=== PATIENT | female | born 1955 | race Caucasian/White ===

== ENCOUNTER 2017-12-05 15:47 | Emergency (ER) | payer OTHER ==
[~2017-12-05 15:47] MED LIST: ISOVUE-370 76%-LOCM 1 ML ONE
[2017-12-05] MEDS ORDERED: Ondansetron ODT 4 MG TAB ONE (16:51)
[2017-12-05] MEDS ORDERED: Morphine 4 MG/ML VIAL ONE (16:51)
[2017-12-05 17:49] LABS: #Eosinphils 0.1 thou/uL (0.0-0.7); #Lymphocytes 2.1 thou/uL (1.20-3.40); #Monocytes 0.6 thou/uL (0.11-0.59); #Neutrophils 7.2 thou/uL (1.40-6.50); %Basophils 0.3 % (0.0-1.0); %Eosinophils 0.9 % (0.0-10.0); %Lymphocytes 20.6 % (21.0-51.0); %Monocytes 5.7 % (0.0-10.0); %Neutrophils 72.4 % (42.0-75.0); Hemoglobin 15.2 g/dL (12.0-16.0); Mean Corpuscular HGB CONC 33.8 g/dL (32.0-36.0); Mean Corpuscular Hemoglobin 31.5 pg (27.0-31.0); Mean Platelet Volume 7.9 fL (7.4-10.4); Platelet Count 257 thou/uL (130-400); RBC Distribution Width 12.4 % (11.5-14.5); Red Blood Cell (RBC) Count 4.83 mill/uL (4.20-5.40)
[2017-12-05] MEDS ORDERED: diphenhydrAMINE 50 MG/ML VIAL ONE (18:03)
[2017-12-05 18:12] LABS: ALT (SGPT) 13 U/L (8-55); AST (SGOT) 17 U/L (5-34); Albumin 4.4 g/dL (3.4-4.8); Alkaline Phosphatase 100 U/L (40-150); Anion Gap 13 mmol/L (10-20); BUN (Urea Nitrogen) 20 mg/dL (9.8-20.1); Bilirubin, Total 0.5 mg/dL (0.2-1.2); CK (CPK) 78 U/L (29-168); Calc. Creatinine Clearance 0 mL/min (70-130); Calcium 10.5 mg/dL (7.8-10.44); Carbon Dioxide 26 mmol/L (23-31); Chloride 106 mmol/L (98-107); Estimated GFR-MDRD 57; Glucose 110 mg/dL (80-115); Lipase 38 U/L (8-78); Potassium 4.1 mmol/L (3.5-5.1); Protein, Total 7.4 g/dL (6.0-8.3); Sodium 141 mmol/L (136-145)
[2017-12-05 18:16] LABS: CKMB 2.6 ng/mL (0-6.6); Troponin I Less than 0.010 ng/mL (< 0.028)
[2017-12-05 18:17] LABS: Bilirubin Small (Negative); Blood, Urine Moderate (Negative); Clarity CLOUDY (Clear); Glucose, Urine (Dipstick) Negative (Negative); Leukocyte Small (Negative); Nitrite Negative (Negative); Protein, Urine (Dipstick) Negative (Neg-Trace); Specific Gravity, Urine 1.029 (1.002-1.036)
[2017-12-05 18:21] LABS: Bacteria/HPF Rare-Few HPF (None Seen); Hyaline Casts/LPF 4-6 HYALINE CAST LPF (0-3 Hyaline); Pathc Cast-AUWi Flag 1.01 (0-2.49); WBC/HPF 21-50 HPF (0-3)
--- NOTE | 2017-12-05 18:49 | RAD ---
PORTABLE CHEST ONE VIEW: Date: 12-05-17 Time: 4:51 p.m. History: Abdominal pain, cramping, epigastric pain, nausea. FINDINGS/IMPRESSION: The heart size is borderline. The lungs are expanded without focal areas of consolidation, pneumothor ax, alia pleural edema or pleural effusions. There are post op changes of right shoulder arthroplast y. POS: H
[2017-12-05] MEDS ORDERED: Ketorolac Tromethamine 30 MG/ML VIAL ONE (18:50)
--- NOTE | 2017-12-05 20:52 | CT ---
CT ABDOMEN AND PELVIS WITH CONTRAST: History: Abdominal pain, nausea, vomiting. FINDINGS: Comparison made with exam of 04-26-15. The patient is status post cholecystectomy. Prominent intra and extrahepatic biliary ducts are seen. The common bile duct at the distal aspect at the pancreatic head measuring about 9 mm. The liver, spl een, pancreas, adrenal glands and right kidney are normal. There is mild left hydroureteronephrosis d ue to a 3 mm calculus in the left ureter at L4 level. No free air, free fluid, or lymphadenopathy is seen. There are vascular calcifications without evidence of aneurysmal dilatation of the abdominal aorta. T here degenerative changes in the spine. There is colonic diverticulosis without evidence of diverticu litis. The patient is post hysterectomy. IMPRESSION: 1. 3 mm left ureteral calculus at the L4 level with mild hydroureteronephrosis. 2. Colonic diverticulosis. POS: MIKE
--- NOTE | 2018-01-03 14:43 | EKG ---
Test Reason : Blood Pressure : / mmHG Vent. Rate : 053 BPM Atrial Rate : 053 BPM P-R Int : 142 ms QRS Dur : 092 ms QT Int : 420 ms P-R-T Axes : -24 -11 033 degrees QTc Int : 394 ms Sinus bradycardia with sinus arrhythmia Otherwise normal ECG Reconfirmed by MEEK COLEMAN ([id number]), loan expeditor RASHEL DALTON ([id number]) on 01/03/2018 2:43:41 PM Referred By: Confirmed By:MEEK COLEMAN
== END 2017-12-05 19:25 | disposition home or self-care (01) ==
LOC: ERS 15:47
DX: N13.2 Hydronephrosis with renal and ureteral calculous obstruction (principal); I10 Essential (primary) hypertension; Z79.899 Other long term (current) drug therapy; Z79.82 Long term (current) use of aspirin
CPT/HCPCS: 36415; 71045; 74177; 80053; 81003; 81015; 82553; 83690; 83880; 84484; 85025; 87040; 87086; 93005; 94760; 96361; 96374; 96375; J0696; J1200; J1885; J2270; Q0162

== ENCOUNTER 2019-09-11 19:27 | Inpatient (IN) | payer OTHER ==
[2019-09-11 21:26] LABS: #Eosinphils 0.2 thou/uL (0.0-0.7); #Lymphocytes 2.4 thou/uL (1.20-3.40); #Monocytes 0.5 thou/uL (0.11-0.59); %Basophils 0.6 % (0.0-1.0); %Eosinophils 2.8 % (0.0-10.0); %Lymphocytes 29.5 % (21.0-51.0); %Monocytes 6.5 % (0.0-10.0); %Neutrophils 60.6 % (42.0-75.0); Mean Corpuscular HGB CONC 34.4 g/dL (32.0-36.0); Mean Corpuscular Hemoglobin 31.6 pg (27.0-31.0); Mean Platelet Volume 8.6 fL (7.4-10.4); Platelet Count 260 thou/uL (130-400); RBC Distribution Width 13.3 % (11.5-14.5); Red Blood Cell (RBC) Count 4.43 mill/uL (4.20-5.40); White Blood Cell (WBC) Count 8.2 thou/uL (4.8-10.8)
[2019-09-11 21:47] LABS: ALT (SGPT) 72 U/L (8-55); AST (SGOT) 61 U/L (5-34); Albumin 3.8 g/dL (3.4-4.8); Alkaline Phosphatase 66 U/L (40-110); Anion Gap 11 mmol/L (10-20); BUN (Urea Nitrogen) 17 mg/dL (9.8-20.1); Bilirubin, Total 0.4 mg/dL (0.2-1.2); Calc. Creatinine Clearance 0 mL/min (70-130); Calcium 9.7 mg/dL (7.8-10.44); Carbon Dioxide 35 mmol/L (23-31); Chloride 99 mmol/L (98-107); Estimated GFR-MDRD 58; Globulin 2.8 g/dL (2.4-3.5); Glucose 149 mg/dL (80-115); Protein, Total 6.6 g/dL (6.0-8.3); Sodium 143 mmol/L (136-145)
[2019-09-11 21:51] LABS: Potassium 1.9 mmol/L (3.5-5.1)
[2019-09-11] MEDS ORDERED: Potassium Chloride 20 MEQ TAB ONE (22:47)
[2019-09-11] MEDS ORDERED: Ondansetron PF 4 MG/2 ML Vial ONE (22:49)
[2019-09-11] MEDS ORDERED: Morphine 4 MG/ML VIAL ONE (22:49)
[2019-09-11] MEDS ORDERED: Ondansetron ODT 4 MG TAB ONE (22:58)
[2019-09-11] MEDS ORDERED: Potassium Chloride 20 MEQ in Premix Bag 1 BAG IVPB SCH (23:15)
[2019-09-11] MEDS ORDERED: Enoxaparin Sodium 30 MG/0.3 ML SYRINGE ONE (23:40)
[2019-09-11] MEDS ORDERED: Enoxaparin Sodium 80 MG/0.8 ML SYRINGE ONE (23:40)
[2019-09-11] MEDS ORDERED: Aspirin Chewable 81 MG TAB ONE (23:55)
--- NOTE | 2019-09-12 01:15 | PDOC.FPRHP ---
- History of Present Illness Chief Complaint: left upper leg pain History of Present Illness: Patient is a 63F with PMHx of HTN and resting tremor that presents with L upper leg pain. Patient reports that the pain began last wednesday but has been getting worse. She states that it is the most painful when she is walking and it helps if she rests. She states that the pain is in her medial thigh and feels like "a pulled muscle x 100." This has never happened to her before. She denies any trauma to the leg. Patient reports of chronic diarrhea x5 weeks that her and her daughter both have. She states that they have been prescribed cipro and flagyl for the diarrhea by their PCP and symptoms have seemed to improved somewhat. Patient denies any chest pain, sob, n/v. PCP: [facility] ED Course: 1mg/kg lovenox, 324mg asa, 20meq KCL IV, 40meq KCL PO, 8mg morphine, 1L NS, 4mg zofran - Allergies/Adverse Reactions Allergies Allergy/AdvReac Type Severity Reaction Status Date / Time codeine Allergy Unverified 09/11/19 22:59 Sulfa (Sulfonamide Allergy Unverified 09/11/19 22:59 Antibiotics) - Home Medications Medication Instructions Recorded Confirmed Type Acetaminophen [Tylenol] 1,000 mg PO Q6HR PRN 09/12/19 09/12/19 History Amlodipine [Norvasc] 5 mg PO DAILY 09/12/19 09/12/19 History Aspirin [Ecotrin] 81 mg PO DAILY 09/12/19 09/12/19 History Cyanocobalamin (Vitamin B-12) 1,000 mcg PO DAILY 09/12/19 09/12/19 History [Vitamin B12] Hydrochlorothiazide 12.5 mg PO DAILY 09/12/19 09/12/19 History Lactobacillus Rhamnosus GG 1 cap PO BID 09/12/19 09/12/19 History [Culturelle] Lisinopril [Zestril] 40 mg PO DAILY 09/12/19 09/12/19 History Metoprolol Tartrate [Lopressor] 100 mg PO BID 09/12/19 09/12/19 History Multivit, Therapeutic [Theragran] 1 tab PO DAILY 09/12/19 09/12/19 History - History PMHx: HTN, resting tremor; had breast cancer in 2004 PSHx: gastric bypass, cholecystectomy, R shoulder surgery, hysterectomy, L knee surgery FHx: DM and HTN Social: previous smoker, rarely drinks ETOH, no drug use - Review of Systems General: denies: fever/chills, weight/appetite/sleep changes Eyes: denies: eye pain, vision changes ENT: denies: nasal congestion, rhinorrhea Respiratory: denies: cough, shortness of breath Cardiovascular: denies: chest pain, edema Gastrointestinal: reports: diarrhea (chronic). denies: nausea, vomiting - Vital signs BP: [172/75] HR: [68] RR: [17] Tmax: [98.2F] Pox: [96]% on [RA] Wt: [113.88kg ] - Physical Exam Constitutional: awake, alert and oriented, well developed HEENT: EOMI, MMM Neck: supple, FROM Chest: no-tender to palpation, no lesions Heart: RRR, normal S1/S2, pulses present Lungs: CTAB, no respiratory distress Abdomen: soft, non-tender Musculoskeletal: ROM grossly normal, other (pain of L upper leg with flexion) Neurological: normal sensation, other (resting tremor) Skin: no rash/lesions, good turgor Heme/Lymphatic: no unusual bruising or bleeding, no purpura Psychiatric: normal mood and affect, good judgment and insight FMR H&P: Results - Labs Result Diagrams: 09/11/19 21:18 09/12/19 00:58 Lab results: WBC 8.2 thou/uL (4.8-10.8) 09/11/19 21:18 Hgb 14.0 g/dL (12.0-16.0) 09/11/19 21:18 Hct 40.8 % (36.0-47.0) 09/11/19 21:18 MCV 92.0 fL (78.0-98.0) 09/11/19 21:18 Plt Count 260 thou/uL (130-400) 09/11/19 21:18 Neutrophils % 60.6 % (42.0-75.0) 09/11/19 21:18 Sodium 143 mmol/L (136-145) 09/11/19 21:18 Potassium 1.9 mmol/L (3.5-5.1) L* 09/11/19 21:18 Chloride 99 mmol/L (98-107) 09/11/19 21:18 Carbon Dioxide 35 mmol/L (23-31) H 09/11/19 21:18 BUN 17 mg/dL (9.8-20.1) 09/11/19 21:18 Creatinine 0.97 mg/dL (0.6-1.1) 09/11/19 21:18 Glucose 149 mg/dL (80-115) H 09/11/19 21:18 Calcium 9.7 mg/dL (7.8-10.44) 09/11/19 21:18 Total Bilirubin 0.4 mg/dL (0.2-1.2) 09/11/19 21:18 AST 61 U/L (5-34) H 09/11/19 21:18 ALT 72 U/L (8-55) H 09/11/19 21:18 Alkaline Phosphatase 66 U/L (40-110) 09/11/19 21:18 Serum Total Protein 6.6 g/dL (6.0-8.3) 09/11/19 21:18 Albumin 3.8 g/dL (3.4-4.8) 09/11/19 21:18 FMR H&P: A/P - Problem List (1) Hypokalemia Current Visit: Yes Status: Acute Code(s): E87.6 - HYPOKALEMIA (2) Atrial flutter Current Visit: Yes Status: Acute Code(s): I48.92 - UNSPECIFIED ATRIAL FLUTTER (3) HTN (hypertension) Current Visit: Yes Status: Chronic Code(s): I10 - ESSENTIAL (PRIMARY) HYPERTENSION (4) Diarrhea Current Visit: Yes Status: Chronic Code(s): R19.7 - DIARRHEA, UNSPECIFIED - Plan Patient is a 63F with PMHx of HTN and resting tremor that is being admitted for severe hypokalemia and atrial flutter #Severe Hypokalemia -potassium 1.9 on presentation -likely the cause of her left leg muscle pain -likely caused by her chronic diarrhea that she has had for the last 5 weeks -given 40meq PO and 20meq IV of KCl in ED -will continue to monitor frequently with Q3BMP and replete as necessary -will check mag and phos and replace as needed -monitor on telemetry overnight -hold home HCTZ #Atrial flutter -EKG in ED demonstrated atrial flutter, rate controlled -Likely related to low potassium -Will monitor on telemetry overnight -started on therapeutic lovenox in ED, will continue -Consider cards consult in am if this persists #Diarrhea -has been ongoing for last 5 weeks -likely the cause of her low potassium -has been treated outpatient with cipro and flagyl per patient -patient reports her symptoms have improved, though she continues to have some bouts of diarrhea she treats with imodium -stool studies pending #HTN -Continue home meds -Hold home HCTZ Diet: HH DVT PPx: Lovenox Dispo: inpatient for monitoring and repletion of potassium and other electrolytes as needed; monitoring on telemetry for atrial flutter Code: Full PCP: Loren FMR H&P: Upper Level - Pertinent history 63 yo F with recent hx of diarrhea for the past 3 weeks being treated by her PCP with Cipro and flagyl here with complaint of muscle pain and weakness. She states that pain feels like a severe cramp and is worst in her L leg. In the ED she had a potassium of 1.9. Her EKG appeared to be rate controlled atrial flutter. PMHx HTN Breast Ca Surgical Hx Gastric bypass Cholecystectomy Hysterectomy R shoulder replacement Social Hx Remote tobacco use Occasional etoh Denies drugs - Pertinent findings See product managent intern note for full ROS, PE, vitals, and labs ROS General Denies chills and fever HEENT denies sore throat or ear pain CV Denies CP, diaphoresis or palpitations Resp Denies SOB or cough GI Denies n/v or abdominal pain denies dysuria and frequency Neuro denies weakness or numbness. MSK complains of leg pain PE General A&O x4 HEENT NCAT CV RRR, no murmur Resp CTA Abd soft, no distension Neuro resting tremor MSK no tenderness, normal strength. Pain with leg flexion - Plan Date/Time: 09/12/19 0115 Abhilash Ramirez DO, have evaluated this patient and agree with findings/plan as outlined by product managent intern resident. Pertinent changes/additions are listed here. 1.Severe Hypokalemia - Admit to tele -Replaced IV and PO -Check Mg and phos and replace if indicated -Q3 BMP until K improves. -This is most likely related to diarrhea, which has since resolved. - hold home HCTZ 2.HTN -Home meds, other than HCTZ 3.Atrial flutter -Likely related to potassium -Monitor on tele. -Continue lovenox -Consider cards consult if this persists Diet HH Code Full PPx Lovenox Dispo: pt is in fair condition. Would expect 2-3 day hospitalization
[2019-09-12] MEDS ORDERED: Potassium Chloride 20 MEQ TAB ONE (01:24)
[2019-09-12] MEDS ORDERED: Calcium Carbonate 500 MG ChewTAB PO PRN (01:58)
[2019-09-12 03:03] LABS: Chloride 100 mmol/L (98-107); Sodium 143 mmol/L (136-145)
[2019-09-12 03:04] LABS: BUN (Urea Nitrogen) 16 mg/dL (9.8-20.1); Calc. Creatinine Clearance 0 mL/min (70-130); Carbon Dioxide 32 mmol/L (23-31); Estimated GFR-MDRD 68
[2019-09-12 03:06] LABS: Calcium 9.1 mg/dL (7.8-10.44); Glucose 125 mg/dL (80-115); Phosphorus 2.5 mg/dL (2.3-4.7)
[2019-09-12 03:07] LABS: Anion Gap 13 mmol/L (10-20); Potassium 1.9 mmol/L (3.5-5.1)
[2019-09-12] MEDS ORDERED: Potassium Chloride 20 MEQ in Premix Bag 1 BAG IVPB SCH ×2 (03:30→12:00)
[2019-09-12] MEDS ORDERED: Acetaminophen 325 MG TAB PO PRN (03:42)
[2019-09-12] MEDS ORDERED: Ondansetron ODT 4 MG TAB SL PRN (03:42)
[2019-09-12] MEDS ORDERED: Ondansetron PF 4 MG/2 ML Vial IVP PRN (03:42)
[2019-09-12] MEDS ORDERED: HYDROcodone/Acetaminophen 5/325 mg Tablet PO PRN ×2 (03:42)
[2019-09-12] MEDS: NS 0.9% w/ 20 MEQ KCL 1,000 ML IV SCH ×2 (04:05→13:06)
[2019-09-12 06:18] LABS: Anion Gap 12 mmol/L (10-20); BUN (Urea Nitrogen) 14 mg/dL (9.8-20.1); Calc. Creatinine Clearance 126 mL/min (70-130); Calcium 8.3 mg/dL (7.8-10.44); Carbon Dioxide 30 mmol/L (23-31); Chloride 102 mmol/L (98-107); Estimated GFR-MDRD 70; Glucose 141 mg/dL (80-115); Sodium 141 mmol/L (136-145)
[2019-09-12 06:24] LABS: Potassium 2.5 mmol/L (3.5-5.1)
[2019-09-12] MEDS: Aspirin 81 mg Enteric Coated Tablet PO SCH (08:56)
[2019-09-12] MEDS: Lisinopril 20 MG TAB PO SCH (08:56)
[2019-09-12] MEDS: Potassium Chloride 20 MEQ TAB PO SCH ×2 (08:56→17:44)
[2019-09-12] MEDS: Cyanocobalamin (Vitamin B-12) 1,000 MCG TAB PO SCH (08:57)
[2019-09-12] MEDS: Metoprolol Tartrate 100 MG TAB PO SCH ×2 (08:57→20:16)
[2019-09-12] MEDS: Multivit, Therapeutic 1 TAB PO SCH (08:57)
[2019-09-12] MEDS: Enoxaparin Sodium 120 MG/0.8 ML SYRINGE SC SCH ×2 (08:57→20:17)
[2019-09-12] MEDS: Amlodipine 5 MG TAB PO SCH (08:57)
[2019-09-12] MEDS ORDERED: Enoxaparin Sodium 100 MG/ML SYRINGE SC SCH (09:00)
[2019-09-12 09:46] LABS: Anion Gap 10 mmol/L (10-20); BUN (Urea Nitrogen) 13 mg/dL (9.8-20.1); Calc. Creatinine Clearance 118 mL/min (70-130); Calcium 8.3 mg/dL (7.8-10.44); Carbon Dioxide 31 mmol/L (23-31); Chloride 102 mmol/L (98-107); Estimated GFR-MDRD 64; Glucose 170 mg/dL (80-115); Sodium 141 mmol/L (136-145)
[2019-09-12 09:50] LABS: Potassium 2.3 mmol/L (3.5-5.1)
[2019-09-12] MEDS: Acetaminophen 325 MG TAB PO PRN (10:16)
--- NOTE | 2019-09-12 10:41 | ULT ---
EXAM: Left lower extremity venous Doppler US HISTORY: left lower extremity edema and pain FINDINGS: Grayscale, color-flow, Doppler evaluation, spectral analysis of the left lower extremity venous struc tures is performed with 2-D imaging. The left common femoral, superficial femoral, popliteal, posterior tibial, proximal greater saphenous and profunda femoral veins are imaged. There is normal luminal compressibility, flow, and augmentation the visualized deep venous structures of the left lower extremity. IMPRESSION: No evidence of a deep vein thrombosis in the left lower extremity.
--- NOTE | 2019-09-12 10:53 | HP ---
HISTORY OF PRESENT ILLNESS: I have examined the patient and discussed the case with Dr. Emi Rodriguez. I agree with her assessment and plan. Briefly, Ms. Ziegler is a pleasant 63-year-old lady who began having diarrhea several weeks ago. She states she has had chronic diarrhea for at least the last 5 weeks. She developed some muscle pain, came to our ER, where she was found to have a potassium of 1.9. She has been admitted for replacement of her serum potassium as well as working up her diarrhea. PHYSICAL EXAMINATION: GENERAL: She is awake, alert, pleasant, in no distress. VITAL SIGNS: Her blood pressure is 170/70, heart rate is 68 and regular, respirations are 17, she is afebrile, and her room air pulse ox is 96%. EAR, NOSE, AND THROAT: Mucous membranes slightly dry, but becoming more moist than explained on admission. NECK: Supple. CARDIAC: Heart rhythm is regular. S4 gallop. There are no murmur or rubs noted. LUNGS: Clear without rales or wheezes. ABDOMEN: Nontender without guarding, rebound, or rigidity. NEUROLOGIC: She has a tremor of her right arm, otherwise no focal deficits. The tremor is a chronic resting tremor. LABORATORY DATA: CBC; white count 8200, hemoglobin 14, hematocrit 40.8 with an MCV of 92. Chemistries on her admission, her potassium was 1.9, it is currently 2.3; sodium 141; chloride 102; bicarb 31; BUN 13; creatinine 0.89; and glucose is 170. Her TSH is 2.45. ASSESSMENT: Profound hypokalemia. PLAN: We will continue to replenish this intravenously and p.o. We have some stool studies pending for her diarrhea. Other problems include the following. She also has atrial flutter with a controlled ventricular response. This may be certainly exacerbated by her low potassium. She is also having some muscle pain in her left medial thigh and we will obtain a Doppler study to make sure she does not have a DVT here. Job ID: [id number]
[2019-09-12 13:29] LABS: Anion Gap 10 mmol/L (10-20); BUN (Urea Nitrogen) 13 mg/dL (9.8-20.1); Calc. Creatinine Clearance 121 mL/min (70-130); Calcium 8.5 mg/dL (7.8-10.44); Carbon Dioxide 32 mmol/L (23-31); Chloride 103 mmol/L (98-107); Estimated GFR-MDRD 66; Glucose 168 mg/dL (80-115); Sodium 142 mmol/L (136-145)
[2019-09-12 13:31] LABS: Potassium 2.9 mmol/L (3.5-5.1)
--- NOTE | 2019-09-12 17:19 | CON ---
DATE OF CONSULTATION: 09/12/2019 REASON FOR CONSULTATION: Atrial fibrillation and atrial flutter in the setting of hypokalemia. HISTORY OF PRESENT ILLNESS: Ms. Ziegler is a 63-year-old woman, who has been having prolonged episodes of diarrhea for about 3 weeks. She also complained of left upper leg pain. The patient had diarrhea for several weeks, some of the notes say anywhere between 3 to 5 weeks. She will be given Cipro and Flagyl. While she was admitted here as noted that she has had episodes of atrial fibrillation and atrial flutter as will be outlined below. The patient has no previous history of chest pain or pressure. The patient does snore and she wakes up tired. PAST MEDICAL HISTORY: Negative for any cardiac operations or procedures. SOCIAL HISTORY: No alcohol or tobacco abuse. REVIEW OF SYSTEMS: CONSTITUTIONAL: No significant weight gain or loss. VISION: No changes. HEARING: No changes. PULMONARY: No cough or wheezing. GASTROINTESTINAL: No nausea, vomiting, or diarrhea. SKIN: No rashes. NEUROLOGIC: No unilateral weakness or numbness. PSYCHIATRIC: No unusual depression or anxiety. PHYSICAL EXAMINATION: GENERAL: This is a 5 feet 4 inches tall, 251 pounds patient, and BMI is 43.1. Blood pressure 120/58 and pulse is 52 and regular. HEENT: Eyes, sclerae nonicteric. Mouth, mucous membranes moist. NECK: Supple. No lymphadenopathy. LUNGS: Clear. CARDIAC: Normal S1. Normal S2. I do not hear murmur, rub, or gallop. ABDOMEN: Soft and nontender. EXTREMITIES: Warm and dry. No clubbing or cyanosis. There is no edema. PERTINENT LABORATORY DATA: Her potassium was 1.9 initially, it is now up to 2.9. Echocardiogram is normal with an ejection fraction 55% to 60%. No significant valvular heart disease. EKGs looked like atrial flutter, atypical. Some of the EKGs look like atrial fibrillation. Some sinus bradycardia. She did have some bradycardia in the 40s, one episode of very severe tachycardia, rate of 180s, it is probably either atrial fibrillation or atrial flutter with a very rapid rate, it is ST depression associated with that severe tachycardia that occurred at 9 a.m. this morning. ASSESSMENT: 1. Diarrhea. 2. Severe hypokalemia secondary to diarrhea. 3. Atrial fibrillation and atrial flutter some with a very rapid rate, some bradycardic. PLAN: 1. Continue to replete potassium. 2. At some point, we will need electrophysiologic consultation for possible ablation. I think some of this severe tachycardia may be flutter. Job ID: [id number]
[2019-09-12 20:50] LABS: Anion Gap 9 mmol/L (10-20); BUN (Urea Nitrogen) 14 mg/dL (9.8-20.1); Calc. Creatinine Clearance 126 mL/min (70-130); Carbon Dioxide 32 mmol/L (23-31); Chloride 106 mmol/L (98-107); Estimated GFR-MDRD 70; Glucose 152 mg/dL (80-115); Sodium 144 mmol/L (136-145)
[2019-09-12 20:53] LABS: Potassium 2.6 mmol/L (3.5-5.1)
[2019-09-12] MEDS ORDERED: Potassium Chloride 20 MEQ TAB PO SCH ×2 (21:00→23:00)
--- NOTE | 2019-09-13 06:24 | PDOC.FM ---
- Subjective Subjective: 5 episodes of diarrhea overnight. Denies fever, chills, palpitations. Currently in NSR. - Objective MAR Reviewed: Yes Vital Signs & Weight: Vital Signs (12 hours) Temp Pulse Resp BP Pulse Ox 09/13/19 03:45 98.4 F 63 18 130/63 96 09/12/19 20:00 97.8 F 64 18 116/55 L 97 Weight Admit Weight 113.88 kg Weight 113.88 kg I&O: 09/11/19 09/12/19 09/13/19 06:59 06:59 06:59 Intake Total 847 Output Total 401 Balance 446 Result Diagrams: 09/11/19 21:18 09/13/19 06:48 Phys Exam - Physical Examination Constitutional: NAD HEENT: moist MMs Neck: supple Respiratory: no wheezing, clear to auscultation bilateral Cardiovascular: RRR, no significant murmur In and out of Aflutter, currently NSR Gastrointestinal: soft, non-tender Musculoskeletal: no edema Neurological: moves all 4 limbs Psychiatric: normal affect, A&O x 3 Skin: normal turgor Dx/Plan - Plan Plan: 63F with PMHx of HTN and resting tremor that is being admitted for severe hypokalemia and atrial flutter Severe Hypokalemia likely 2/2 chronic diarrhea - Initial K: 1.9 - Continue IV and PO replacement - Mg nml - Holding home HCTZ Atrial flutter 2/2 hypokalemia, In and out of Aflutter - EKG: atrial flutter, rate controlled - Continue therapeutic lovenox - Cards consulted Medial Thigh Pain - Likely caused by hypokalemia - LE US neg for DVT Diarrhea - Has been treated outpatient with cipro and flagyl per patient - Started after eating deer meat, mult other family members with similar symptoms that resolved with exception of her daughter - Stool studies neg thus far, several still pending - Ordered Celiac panel, giardia, ESR & CRP. Consider GI consult if workup results neg. HTN - Continue home meds - Hold home HCTZ Hx of Gastric Sleeve Suspected JOY - Has not had sleep study yet DVT PPx: Ther Lovenox Code Status: Full PCP: Loren Addendum - Attending - Attending Attestation Date/Time: 09/13/19 1053 I personally evaluated the patient and discussed the management with Dr. Baker I agree with the History, Examination, Assessment and Plan documented above with any addition or exceptions noted below. potassium is improving. Will continue replacement. Awaiting final stool studies before starting antidiarrheal medications. If negative will consider GI consultation. EP believes a-flutter was due to tremor on tele lead. will f/u with additional cardiology recommendations.
[2019-09-13 07:20] LABS: Anion Gap 8 mmol/L (10-20); BUN (Urea Nitrogen) 13 mg/dL (9.8-20.1); Calc. Creatinine Clearance 136 mL/min (70-130); Calcium 8.5 mg/dL (7.8-10.44); Carbon Dioxide 32 mmol/L (23-31); Chloride 108 mmol/L (98-107); Estimated GFR-MDRD 76; Glucose 128 mg/dL (80-115); Magnesium 2.1 mg/dL (1.6-2.6); Sodium 145 mmol/L (136-145)
[2019-09-13 07:29] LABS: Potassium 2.9 mmol/L (3.5-5.1)
[2019-09-13] MEDS: Aspirin 81 mg Enteric Coated Tablet PO SCH (08:30)
[2019-09-13] MEDS: Amlodipine 5 MG TAB PO SCH (08:30)
[2019-09-13] MEDS: Potassium Chloride 20 MEQ TAB PO SCH (08:30)
[2019-09-13] MEDS: Multivit, Therapeutic 1 TAB PO SCH (08:30)
[2019-09-13] MEDS: Lisinopril 20 MG TAB PO SCH (08:30)
[2019-09-13] MEDS: Cyanocobalamin (Vitamin B-12) 1,000 MCG TAB PO SCH (08:30)
[2019-09-13] MEDS: Enoxaparin Sodium 120 MG/0.8 ML SYRINGE SC SCH (08:31)
[2019-09-13] MEDS: Metoprolol Tartrate 100 MG TAB PO SCH ×2 (08:32→20:27)
[2019-09-13] MEDS ORDERED: Potassium Chloride 40 MEQ in Sodium Chloride 0.9% 250 ML 250 ML IVPB SCH ×2 (09:30→12:00)
--- NOTE | 2019-09-13 12:46 | CON ---
DATE OF CONSULTATION: 09/13/2019 HISTORY OF PRESENT ILLNESS: I am seeing Ms. Ziegler at our [facility] Telemetry Floor as an electrophysiology consult regarding her abnormal EKG and arrhythmias. Her problems are; 1. Episodic palpitations. a. Telemetry strips reveal two atrial tachycardia episodes that is about 15 seconds with rates up to 180 beats per minute in the setting of hypokalemia. b. Also baseline artifact is seen due to upper extremity tremor throughout the recordings, but no true atrial flutter is noted. 2. Preserved LVEF by 2D echo on 09/12/2019 at 55% to 60%. No significant valvular heart disease. 3. Diarrhea related hypokalemia on this admission. 4. Elevated BMI. ALLERGIES: CODEINE AND SULFA. MEDICATIONS: At home included; 1. Culturelle. 2. Tylenol. 3. Multivitamin. 4. Aspirin. 5. Metoprolol tartrate. 6. Amlodipine. 7. Lisinopril. 8. Hydrochlorothiazide. 9. Cyanocobalamin. SUBJECTIVE: Ms. Ziegler was admitted with unrelenting diarrhea for last 5 weeks. She was noted to be markedly hypokalemic, but also she had some complaints of palpitations prior to the day of coming in, which has subsided by the time of admission. She had no symptomatic recurrence at this time, but telemetry strips revealed abnormal recordings, hence I was consulted for further arrhythmia management. At this point, she is doing fair. She is complaining of left lower leg discomfort, which seems to be improving. She is receiving potassium replacement, still suboptimal levels are seen. Her diarrhea is somewhat improving, but not resolved completely yet. She has no stroke-like symptoms, no neurological deficits. No fever, chills, or cough. REVIEW OF SYSTEMS: Rest of 12-point system otherwise unremarkable. OBJECTIVE DATA: VITAL SIGNS: Blood pressure 131/74, heart rate 59, respirations 20, temperature 98.5 degrees Fahrenheit, currently. GENERAL: Reveals an alert and oriented, obese woman, in no apparent distress. NECK: Supple. Jugular veins not distended. CHEST: Coarse without crackles. HEART: Sounds are regular to rate and rhythm. No murmur or gallop. ABDOMEN: Benign. Bowel sounds positive. EXTREMITIES: Lower extremities without edema, clubbing, or cyanosis. Pulses are adequate. NEUROLOGIC: The patient is nonfocal, but upper extremity tremor is seen, which though she can suppress intentionally only. SOCIAL HISTORY: She denies smoking, EtOH, or drug abuse. FAMILY HISTORY: Not contributory. DATABASE: The EKG is reviewed. Initial EKGs reveal sinus rhythm with occasional PACs with heavy baseline artifact on September 11. Subsequent EKGs are similar, intermittent PACs. Telemetry strips also reveal sinus rhythm with baseline artifact coming and going throughout the recordings. One episode of rapid tachycardia is seen with heart rates up to 180 beats per minute narrow complex, appears to be atrial tachycardia run, at the time when the patient was being changed, quickly resolving. LABORATORY DATA: White blood cell count is 8.2, hemoglobin 14, platelet count is 260. Sodium 145, potassium currently 2.9, BUN is 13, creatinine 0.77, magnesium is 2.1. ASSESSMENT AND PLAN: Ms. Ziegler is a very pleasant 63-year-old woman, who has no prior cardiac history, and has normal LVEF on echocardiogram this admit, who presented with persisting diarrhea and marked hypokalemia. She also has episodic symptoms of palpitations, like prior to admission and during her monitoring, we noticed a short, maybe 15 seconds worth of rapid atrial tachycardia, could be resolving spontaneously, this was at the time when the patient was changed, atrial tachycardia versus sinus tachycardia is differential diagnosis. Confusingly, the picture has dense baseline artifact, likely related to the right extremity tremor, which seems to be present all the time. The patient can suppress it intentionally, but otherwise it is constant. Hence, the constant artifact masquerading as atrial flutter, but true sinus rhythm is seen in the lead III throughout. At this point, the short atrial tachycardia likely warrants no new therapy. This could be provoked by her marked hypokalemia, which likely will be corrected by the end of the hospitalization. On the other hand, if continued palpitations recur , she may benefit from further monitoring and intensifying her antiarrhythmic regimen. At this point, I will continue with the current beta-miriam dose. Should she has frequent true atrial tachycardia episodes, antiarrhythmic agents or ablation in a potential option, have to see her back in the office if felt necessary. Thank you again for allowing me to participate in the care of this patient. Job ID: [id number] [facility]
[2019-09-13 13:33] LABS: Anion Gap 9 mmol/L (10-20); BUN (Urea Nitrogen) 14 mg/dL (9.8-20.1); Calc. Creatinine Clearance 125 mL/min (70-130); Calcium 8.6 mg/dL (7.8-10.44); Carbon Dioxide 31 mmol/L (23-31); Chloride 108 mmol/L (98-107); Estimated GFR-MDRD 69; Glucose 134 mg/dL (80-115); Potassium 3.5 mmol/L (3.5-5.1); Sodium 144 mmol/L (136-145)
[2019-09-13] MEDS ORDERED: Potassium Chloride 20 MEQ TAB PO SCH ×2 (14:00→18:00)
[2019-09-13 16:28] LABS: EliA Celiac New Method **** NEW METHOD ****; Gliadin IgA Ab, Deamidated 4.2 EliAU/mL (<7 Negative); Gliadin IgG Ab, Deamidated Less than 0.4 EliAU/mL (<7 Negative); t-Transglutaminase (tTG) IgA 1.2 EliAU/mL (<7 Negative); t-Transglutaminase (tTG) IgG Less than 0.6 EliAU/mL (<7 Negative)
[2019-09-13] MEDS: Enoxaparin Sodium 40 MG/0.4 ML SYRINGE SC SCH (20:28)
[2019-09-14 05:06] LABS: Anion Gap 9 mmol/L (10-20); BUN (Urea Nitrogen) 16 mg/dL (9.8-20.1); Calc. Creatinine Clearance 134 mL/min (70-130); Calcium 8.4 mg/dL (7.8-10.44); Carbon Dioxide 28 mmol/L (23-31); Chloride 110 mmol/L (98-107); Estimated GFR-MDRD 75; Glucose 114 mg/dL (80-115); Sodium 144 mmol/L (136-145)
[2019-09-14 05:11] LABS: Potassium 2.8 mmol/L (3.5-5.1)
[2019-09-14] MEDS ORDERED: Potassium Chloride 20 MEQ TAB PO SCH ×4 (05:30→12:00)
[2019-09-14] MEDS ORDERED: Potassium Chloride 40 MEQ in Sodium Chloride 0.9% 250 ML 250 ML IVPB SCH ×3 (06:00→12:00)
--- NOTE | 2019-09-14 06:40 | PDOC.FM ---
- Subjective Subjective: 5-6 diarrheal stools overnight, feeling weak this morning. Denies fever, chills. Some abdominal discomfort and bloating but denies pain. - Objective MAR Reviewed: Yes Vital Signs & Weight: Vital Signs (12 hours) Temp Pulse Resp BP BP Pulse Ox 09/14/19 03:59 98.0 F 62 18 142/73 H 92 L 09/13/19 20:00 98.1 F 74 18 142/63 H 95 Weight Admit Weight 113.88 kg Weight 113.88 kg I&O: 09/12/19 09/13/19 09/14/19 06:59 06:59 06:59 Intake Total 847 1050 Output Total 401 150 Balance 446 900 Result Diagrams: 09/11/19 21:18 09/14/19 04:21 Phys Exam - Physical Examination Constitutional: NAD HEENT: moist MMs Neck: supple Respiratory: no wheezing, clear to auscultation bilateral Cardiovascular: RRR, no significant murmur Gastrointestinal: soft, non-tender, positive bowel sounds Musculoskeletal: no edema Neurological: moves all 4 limbs tremor present right arm Psychiatric: normal affect, A&O x 3 Skin: normal turgor Dx/Plan - Plan Plan: 63F with pmh of HTN admitted for severe hypokalemia and atrial flutter Severe Hypokalemia likely 2/2 chronic diarrhea - Initial K: 1.9 - Continue IV and PO replacement - Mg nml - Holding home HCTZ Diarrhea - Tx outpatient with cipro and flagyl per patient - Started after eating deer meat, mult other family members with similar symptoms that resolved with exception of her daughter - Stool studies neg thus far, several still pending. Celiac and ESR nml. - Elevated CRP - O&P pending. If negative with consult GI Atrial tachycardia vs sinus tachycardia 2/2 hypokalemia, Resolved - Currently NSR - Cards & EP consulted, apprec recs Medial Thigh Pain - Likely caused by hypokalemia - LE US neg for DVT HTN - Continue home meds - Hold home HCTZ Hx of Gastric Sleeve Suspected JOY - Has not had sleep study yet DVT PPx: Ther Lovenox Code Status: Full PCP: Loren Addendum - Attending - Attending Attestation Date/Time: 09/14/19 1025 I personally evaluated the patient and discussed the management with Dr. Baker I agree with the History, Examination, Assessment and Plan documented above with any addition or exceptions noted below. Potassium down to 2.8 today. Will continue to replace PO and IV. i suspect she is systemically depleted at this point due to her persistent diarrhea. O&P screen negative. Will start imodium and have GI evaluate due to chronic diarrhea. I believe this may be a combination of an acute infection that her family experienced that has been exacerbated and prolonged by her history of gastric sleeve surgery. Will follow up with GI recommendations. Repeat BMP today at 1200.
[2019-09-14] MEDS ORDERED: Potassium Chloride 40 MEQ in Premix Bag 1 BAG IVPB SCH ×2 (06:45→12:00)
[2019-09-14] MEDS: Enoxaparin Sodium 40 MG/0.4 ML SYRINGE SC SCH ×2 (08:31→19:57)
[2019-09-14] MEDS: Lisinopril 20 MG TAB PO SCH (08:32)
[2019-09-14] MEDS: Potassium Chloride 20 MEQ TAB PO SCH (08:32)
[2019-09-14] MEDS: Cyanocobalamin (Vitamin B-12) 1,000 MCG TAB PO SCH (08:34)
[2019-09-14] MEDS: Amlodipine 5 MG TAB PO SCH (08:34)
[2019-09-14] MEDS: Multivit, Therapeutic 1 TAB PO SCH (08:34)
[2019-09-14] MEDS: Aspirin 81 mg Enteric Coated Tablet PO SCH (08:34)
[2019-09-14] MEDS: Metoprolol Tartrate 100 MG TAB PO SCH ×2 (08:34→19:57)
--- NOTE | 2019-09-14 09:00 | PRG ---
DATE OF SERVICE: 09/14/2019 SUBJECTIVE: Ms. Ziegler continues to have severe diarrhea. She has no chest pain or pressure, otherwise feeling okay. Blood pressure is 140/68, pulse 70. Dr. Madsion saw the patient yesterday, was initially thought to be atrial flutter, looks like artifact actually due to a tremor. I did not realize she had a tremor, but she tells me she did have a tremor when she came in and intermittently has tremor in her hands. ASSESSMENT: 1. Initially thought to be atrial flutter, but it is artifactual. 2. One episode of looks like rapid atrial fibrillation in the setting of severe hypokalemia. PLAN: Continue to replete potassium. We will sign off. Please re-consult if needed. Job ID: [id number]
[2019-09-14] MEDS: Dicyclomine 10 MG CAP PO SCH ×3 (09:37→18:16)
[2019-09-14] MEDS ORDERED: Loperamide HCl 2 MG CAP PO PRN (10:08)
[2019-09-14] MEDS ORDERED: Loperamide HCl 2 MG CAP PO SCH (10:15)
[2019-09-14 13:00] LABS: Potassium 3.7 mmol/L (3.5-5.1)
--- NOTE | 2019-09-14 16:37 | PRG ---
DATE OF SERVICE: 09/14/2019 SUBJECTIVE: Ms. Ziegler seems to be doing better. Still has diarrhea. No recurrent palpitations are noted. OBJECTIVE DATA: VITAL SIGNS: Blood pressure is stable , heart rate 70. GENERAL: Alert and oriented woman, in no apparent distress. Elevated BMI. NECK: Supple. Jugular veins not distended. CHEST: Coarse without crackles. HEART: Heart sounds are regular to rate and rhythm. No murmur or gallop. ABDOMEN: Benign. Bowel sounds positive. EXTREMITIES: Lower extremities without edema, clubbing, or cyanosis. DATABASE: Telemetry strips reviewed, reveals no further atrial arrhythmia episodes. Lab data reviewed. The potassium was 2.8, this am, now 3.7 at 12:37 p.m. ASSESSMENT AND PLAN: Ms. Ziegler is a 63-year-old woman with history of no significant cardiac history, preserved LVEF by 2D echocardiogram on 09/12/2019. She presented with some palpitations, also severe diarrhea and marked hypokalemia. A short narrow complex tachycardia, possible atrial tachycardia was well documented for about 10 seconds, but was not markedly symptomatic at this time. On the other hand, she also had abnormal EKGs which had an appearance of atrial flutter, but on further evaluation, it appears to be more consistent with artifact due to right hand tremor. The short atrial arrhythmia in the setting of hypokalemia likely can be handled with electrolyte correction and possibly beta miriam therapy. So, no further EP plans are made, have to see this lady back if felt necessary. For now, we will sign off. Thank you for allowing me to participate in care of this patient. Job ID: [id number] MTDD
[2019-09-14] MEDS ORDERED: GoLYTELY 4,000 ml Bottle PO SCH (17:15)
[2019-09-14] MEDS: Acetaminophen 325 MG TAB PO PRN (19:56)
--- NOTE | 2019-09-14 20:21 | CON ---
DATE OF CONSULTATION: 09/14/2019 REASON FOR CONSULTATION: Chronic diarrhea. CONSULTING PROVIDER: Elizabeth Baker MD HISTORY OF PRESENT ILLNESS: The patient is a 63-year-old female with past medical history of hypertension, atrial flutter, resting tremor, and breast cancer status post lumpectomy, presenting with complaints of chronic diarrhea. Upon chart review, the patient was initially admitted to the hospital with complaints of left upper leg pain but during the course of this hospitalization related to healthcare staff that she had been having increased diarrhea for the last five weeks. She correlates this diarrhea starting after the consumption of eating deer meat chili with the onset of diarrhea the following day and since that time she has been having approximately 6 to 8 liquid bowel movements per day ([place] [employer]) that was associated with increased straining in order to facilitate defecation and also with large volume type bowel movements. She denies the appearance of any hematemesis or melena nor does she describe any steatorrhea during this time period as well. She had initially been placed on Imodium and probiotics with a slight improvement in her stool consistency. She was also evaluated by her primary care physician and placed on ciprofloxacin and metronidazole with a mild improvement in her symptoms while on treatment, but again went back to her previous stooling pattern upon completion of the antibiotic therapy. She also describes one episode of increased suprapubic abdominal pain that occurred today that was characterized as a sharp/cramping type sensation, radiated to the left lower quadrant and right lower quadrant and reached a severity of 2/10. The pain lasted for approximately minutes to an hour in duration, and spontaneously resolved. During the course of the last month, she had been having episodes of intermittent nausea but no actual emesis, weakness, and subjective weight loss (the patient has not weighed herself at home). She currently denies any vomiting, fevers, chills, hematemesis, melena, hematochezia, dysphagia, or odynophagia. Of note, when the patient consumed the deer chili approximately five weeks ago, multiple family members who also ate the chili started to exhibit very similar symptoms. However, of all the family members, only two now have continued symptoms which include the patient and her daughter. Upon speaking with the patient's daughter, she noted that she may have seen a worm in her stool approximately 2 weeks ago, but has not had any further episodes of foreign bodies in her stool. REVIEW OF SYSTEMS: A 10-category review of systems was obtained with all responses negative except for the pertinent positives as listed in HPI. PAST MEDICAL HISTORY: As per HPI. PAST SURGICAL HISTORY: Gastric sleeve/bypass, cholecystectomy, right shoulder surgery, hysterectomy, and left knee surgery. FAMILY HISTORY: Denies any GI malignancies. SOCIAL HISTORY: Denies any tobacco, alcohol, or illicit drug use. OUTPATIENT MEDICATIONS: Reviewed. ALLERGIES: CODEINE AND SULFA. PHYSICAL EXAMINATION: VITAL SIGNS: Temperature 97.8, pulse 66, blood pressure 178/84, respiratory rate 16, saturating 96% on room air. GENERAL: The patient was sitting in a chair at bedside, in no acute distress. Alert and oriented x4. HEENT: Normocephalic, atraumatic. NECK: Supple. No JVD or scleral icterus noted. CARDIOVASCULAR: Regular rate and rhythm with no discernible murmurs, gallops, or rubs. RESPIRATORY: Clear to auscultation bilaterally with no discernible wheezes or rales. ABDOMEN: Normoactive bowel sounds. Soft, nontender, nondistended. Obese abdomen. EXTREMITIES: [id number] nonpitting edema in the bilateral lower extremities extending to mid cox. No cyanosis or clubbing noted. LABORATORY DATA: CBC with white blood cell count of 8.2, hemoglobin 14, hematocrit 40.8, platelets 260. Chemistry with a sodium of 144, potassium 2.8, chloride 110, CO2 of 28, BUN 16, creatinine 0.78, glucose 114, AST 61, ALT 72, alkaline phosphatase 66, total bilirubin 0.4, TSH 2.45, albumin 3.8. Tissue transglutaminase IgG and IgA both negative. Stool studies thus far have been negative for ova and parasites, Campylobacter, E coli, stool culture including salmonella and Shigella and Clostridium difficile. Stool lactoferrin was positive. IMAGING DATA: No GI imaging is available for review. ASSESSMENT AND PLAN: The patient is a 63-year-old female with past medical history of hypertension, essential resting tremor, atrial flutter, and breast cancer, presenting with complaints of chronic diarrhea. Diarrhea. The patient states that she had acute onset of diarrhea approximately 5 to 6 weeks ago after the consumption of deer meat chili with the meat had been previously frozen and included in the meal. She did have some vegetables associated with that meal that were cooked in tube but were adequately cooked during the processing of the meal. However, she and multiple family members after the meal exhibited increased abdominal discomfort and diarrhea that has persisted to this very day. Most of the family members symptoms have resolved except for the patient's daughter as well. Currently, she engages in a fairly low-fiber diet as an outpatient which could contribute to further diarrhea but given the patient's daughters possible cook morning her stool, a parasitic type process cannot be ruled out at this time. Differential could include inadequate fiber intake, infectious etiology (whether it be bacterial or parasitic), IBD, IBS, microscopic colitis, celiac disease (even with negative TTGs, although less likely), malabsorptive disorder, eosinophilic gastroenteritis, and/or GI neoplasm. RECOMMENDATIONS: 1. Would continue with IV fluid hydration and replacement electrolytes as you are doing given the patient's significant hypokalemia. 2. Would place the patient on a clear liquid diet today with GoLYTELY prep tonight in anticipation of both EGD and colonoscopy tomorrow. Further recommendations to follow endoscopy. 3. Could consider treating patient empirically with albendazole for possible parasitic/worm process. 4. Would hold on any additional antibiotics for now given negative stool studies thus far. 5. Could place the patient on Imodium 4 mg b.i.d. as needed for diarrhea. 6. Pain control per primary team. We will continue to follow. Please call with any questions. Job ID: [id number]
[2019-09-15 04:45] LABS: Anion Gap 8 mmol/L (10-20); BUN (Urea Nitrogen) 12 mg/dL (9.8-20.1); Calc. Creatinine Clearance 146 mL/min (70-130); Calcium 8.1 mg/dL (7.8-10.44); Carbon Dioxide 29 mmol/L (23-31); Chloride 108 mmol/L (98-107); Estimated GFR-MDRD 82; Glucose 105 mg/dL (80-115); Sodium 142 mmol/L (136-145)
[2019-09-15 04:51] LABS: Potassium 2.9 mmol/L (3.5-5.1)
[2019-09-15] MEDS ORDERED: Potassium Chloride 20 MEQ TAB PO SCH ×2 (05:30→08:00)
--- NOTE | 2019-09-15 06:41 | PDOC.FM ---
- Subjective Subjective: Multiple stools overnight however she was undergoing prep for EGD/colonoscopy this morning. Reports some abdominal cramping. Denies fever, chills, muscle cramps. - Objective MAR Reviewed: Yes Vital Signs & Weight: Vital Signs (12 hours) Temp Pulse Resp BP Pulse Ox 09/15/19 03:36 98.0 F 64 18 135/63 95 09/15/19 01:05 144/91 H 09/15/19 00:03 178/99 H 09/15/19 00:00 61 09/14/19 19:20 98 F 86 18 143/85 H 96 Weight Admit Weight 113.88 kg Weight 113.88 kg I&O: 09/13/19 09/14/19 09/15/19 06:59 06:59 06:59 Intake Total 847 1050 5210 Output Total 168 751 0071 Balance 711 133 3316 Result Diagrams: 09/11/19 21:18 09/15/19 04:15 Phys Exam - Physical Examination Constitutional: NAD HEENT: moist MMs Neck: supple Respiratory: no wheezing, clear to auscultation bilateral Cardiovascular: RRR, no significant murmur Gastrointestinal: soft LLQ discomfort, no rebound or rigidity Musculoskeletal: no edema Neurological: moves all 4 limbs Psychiatric: normal affect, A&O x 3 Skin: normal turgor Dx/Plan - Plan Plan: 63F with pmh of HTN admitted for severe hypokalemia Severe Hypokalemia likely 2/2 chronic diarrhea - Continue to hold home HCTZ. - 2.9 this morning, continue replacement IV & PO and recheck at 1300 Diarrhea - Workup thus far has been neg. GI saw pt yesterday and she will be going for EGD/colonoscopy this morning. - Imodium 4mg BID. Consider Albendazole, awaiting GI recs - Simethicone for abd discomfort DVT PPx: Ther Lovenox Code Status: Full PCP: Loren Addendum - Attending - Attending Attestation Date/Time: 09/15/19 1020 I personally evaluated the patient and discussed the management with Dr. Baker. I agree with the History, Examination, Assessment and Plan documented above with any addition or exceptions noted below. Continue to aggressively replace potassium. Continue telemetry monitoring. GI plans to scope today. Will f/u recommendations.
[2019-09-15] MEDS ORDERED: Potassium Chloride 40 MEQ in Premix Bag 1 BAG IVPB SCH ×2 (06:45→17:45)
[2019-09-15] MEDS ORDERED: Loperamide HCl 2 MG CAP PO PRN (06:48)
[2019-09-15] MEDS ORDERED: Potassium Chloride 40 MEQ in Sodium Chloride 0.9% 250 ML 250 ML IVPB SCH ×2 (07:30→17:45)
[2019-09-15] MEDS ORDERED: Simethicone Chewable 80 MG TAB PO SCH (08:00)
[2019-09-15] MEDS ORDERED: Ondansetron PF 4 MG/2 ML Vial IVP SCH (08:45)
[2019-09-15] MEDS: Enoxaparin Sodium 40 MG/0.4 ML SYRINGE SC SCH (08:56)
[2019-09-15] MEDS: Multivit, Therapeutic 1 TAB PO SCH (08:57)
[2019-09-15] MEDS: Amlodipine 5 MG TAB PO SCH (08:57)
[2019-09-15] MEDS: Metoprolol Tartrate 100 MG TAB PO SCH ×2 (08:57→20:08)
[2019-09-15] MEDS: Cyanocobalamin (Vitamin B-12) 1,000 MCG TAB PO SCH (08:57)
[2019-09-15] MEDS: Aspirin 81 mg Enteric Coated Tablet PO SCH (08:57)
[2019-09-15] MEDS: Lisinopril 20 MG TAB PO SCH (08:57)
[2019-09-15] MEDS ORDERED: PROPOFOL 200 MG/20 ML VIAL ONE (10:17)
[2019-09-15] MEDS ORDERED: Ondansetron PF 4 MG/2 ML Vial ONE (10:17)
[2019-09-15] MEDS ORDERED: Fentanyl 100 MCG/2 ML VIAL ONE (12:17)
[2019-09-15] MEDS: Lactinex Tablet PO SCH ×3 (13:09→20:08)
[2019-09-15 15:10] LABS: Routine O & P Final report (.)
[2019-09-15 16:51] LABS: #Eosinphils 0.1 thou/uL (0.0-0.7); #Monocytes 0.4 thou/uL (0.11-0.59); #Neutrophils 2.8 thou/uL (1.40-6.50); %Basophils 0.5 % (0.0-1.0); %Eosinophils 2.7 % (0.0-10.0); %Lymphocytes 37.4 % (21.0-51.0); %Monocytes 7.3 % (0.0-10.0); %Neutrophils 52.1 % (42.0-75.0); Mean Corpuscular HGB CONC 35.2 g/dL (32.0-36.0); Mean Corpuscular Hemoglobin 33.7 pg (27.0-31.0); Mean Platelet Volume 8.3 fL (7.4-10.4); Platelet Count 227 thou/uL (130-400); RBC Distribution Width 13.6 % (11.5-14.5); Red Blood Cell (RBC) Count 3.56 mill/uL (4.20-5.40); White Blood Cell (WBC) Count 5.4 thou/uL (4.8-10.8)
[2019-09-15 17:25] LABS: Anion Gap 12 mmol/L (10-20); BUN (Urea Nitrogen) 10 mg/dL (9.8-20.1); Calc. Creatinine Clearance 144 mL/min (70-130); Calcium 8.8 mg/dL (7.8-10.44); Carbon Dioxide 26 mmol/L (23-31); Chloride 109 mmol/L (98-107); Estimated GFR-MDRD 81; Glucose 86 mg/dL (80-115); Magnesium 2.1 mg/dL (1.6-2.6); Potassium 3.4 mmol/L (3.5-5.1); Sodium 144 mmol/L (136-145)
--- NOTE | 2019-09-15 20:05 | OP ---
DATE OF PROCEDURE: 09/15/2019 PROCEDURES PERFORMED: Esophagogastroduodenoscopy with biopsy, colonoscopy with biopsy, polypectomy, and control of hemorrhage. INDICATION FOR PROCEDURE: Chronic diarrhea. DESCRIPTION OF PROCEDURE: After the risks and benefits of the procedures were explained to the patient including risks of bleeding, infection, perforation, reactions to anesthesia, aspiration and/or pain, informed consent was obtained. The patient was then taken to the endoscopy suite, where deep sedation was administered via propofol and anesthesia support. Once adequate sedation was achieved, the standard gastroscope was introduced into the mouth with the intubation of the esophagus, stomach, and the proximal small intestines with the findings listed below. Upon completion of this portion of the procedure, all equipment was removed from the patient and the bed was rotated 180 degrees in anticipation of the colonoscopy. Once the patient was in proper position, a digital rectal examination was performed followed by introduction of the standard colonoscope, which was then advanced to the terminal ileum with some difficulty secondary to significant diverticular disease, a tortuous colon, body habitus, and colonic prep. The patient tolerated the procedure well with no immediate perioperative complications. Upon completion of the procedure, all equipment was removed from the patient and she was transferred to PACU in satisfactory condition. EGD FINDINGS: Esophagus: Normal-appearing mucosa was seen in the proximal, mid, and distal esophagus. There was no evidence of erosions, ulcerations, mass, lesions, or active/recent bleeding. Stomach: Surgical change associated with a sleeve gastrectomy was seen throughout the entire stomach. Otherwise, normal-appearing mucosa was seen in the gastric cardia, remnant of the fundus and body, greater curvature, antrum, and incisura. There was no evidence of erosions, ulcerations, mass, lesions, or active/recent bleeding. Duodenum: Normal-appearing mucosa was seen in both the duodenal bulb and second portion of the duodenum. There was no evidence of erosions, ulcerations, mass, lesions, active/recent bleeding, or infectious type process. Multiple random biopsies were taken from both the duodenal bulb and second portion of the duodenum for further evaluation of either celiac disease versus infection. IMPRESSION: 1. Surgical change associated with sleeve gastrectomy with no complications from this procedure. 2. Otherwise normal upper endoscopy. COLONOSCOPY FINDINGS: Digital rectal exam; small perianal skin tags were seen on external examination. Colon findings; normal-appearing mucosa was seen within the terminal ileum as well as at the ileocecal valve and appendiceal orifice. Two polyps measuring 3 to 4 mm in size were seen in the cecum and completely removed with cold snare polypectomy. They were retrieved and placed in a specimen jar for further evaluation. Normal-appearing mucosa was then seen within the ascending colon. Two 2 to 4 mm polyps were seen in the transverse colon and completely removed with cold snare polypectomy. They were retrieved and placed in a specimen jar for further evaluation. Normal-appearing mucosa was then seen in the proximal descending colon. However, numerous large and small diverticula were seen in the distal descending and sigmoid colon consistent with severe diverticulosis. Two polyps were then seen in the sigmoid colon measuring 3 mm and 2 cm in diameter. The smaller polyp was removed via biopsy forceps while the larger polyp was removed via snare cautery polypectomy. Significant bleeding was noted after removal of the larger polyp, but did slowly cease upon direct visualization. A hemoclip x1 was placed across the mucosal defect to prevent against any further post polypectomy bleeding. No bleeding was seen at the end of the maneuver. Normal-appearing mucosa was then seen within the rectum with no abnormalities seen on rectal retroflexion. Random colon biopsies were taken throughout the entire colon for further evaluation of possible microscopic colitis versus infection. IMPRESSION: 1. Two 3 to 4 mm cecal polyps, status post cold snare polypectomy. 2. Two 2 to 4 mm transverse colon polyps, status post cold snare polypectomy. 3. Two sigmoid polyps measuring 3 mm and 2 cm, status post biopsy and snare cautery polypectomy respectively. The larger polyp did exhibit increased bleeding post polypectomy, but stopped spontaneously, but hemoclip x1 was placed to prevent post polypectomy bleeding. 4. Severe left-sided diverticulosis. 5. No etiology for the patient's diarrhea was seen during this portion of the examination. RECOMMENDATIONS: 1. Would continue with IV fluid resuscitation and electrolyte replacement given the patient's severe diarrhea. 2. Can give antidiarrheal agents to help slow the diarrhea. 3. Would follow up on the biopsies for evaluation of possible origin of her diarrhea. 4. Given the increased risk of worm infection, we would consider albendazole 400 mg daily x3 days. 5. We will continue to monitor clinically for signs of bleeding in the post polypectomy period. We will continue to follow. Please call with any questions. Job ID: [id number]
[2019-09-16 04:57] LABS: Anion Gap 8 mmol/L (10-20); BUN (Urea Nitrogen) 10 mg/dL (9.8-20.1); Calc. Creatinine Clearance 150 mL/min (70-130); Calcium 8.2 mg/dL (7.8-10.44); Carbon Dioxide 26 mmol/L (23-31); Chloride 112 mmol/L (98-107); Estimated GFR-MDRD 85; Glucose 86 mg/dL (80-115); Potassium 3.4 mmol/L (3.5-5.1); Sodium 143 mmol/L (136-145)
[2019-09-16] MEDS ORDERED: Potassium Chloride 40 MEQ in Sodium Chloride 0.9% 250 ML 250 ML IVPB SCH (05:30)
[2019-09-16] MEDS ORDERED: Potassium Chloride 40 MEQ in Premix Bag 1 BAG IVPB SCH (05:30)
[2019-09-16] MEDS: Acetaminophen 325 MG TAB PO PRN (05:35)
--- NOTE | 2019-09-16 06:01 | PDOC.FM ---
- Subjective Subjective: Reports multiple episodes of diarrhea overnight. Abdominal discomfort. Denies fever, chills. Would like to advance diet from clears to regular. - Objective MAR Reviewed: Yes Vital Signs & Weight: Vital Signs (12 hours) Temp Pulse Resp BP Pulse Ox 09/16/19 04:25 97.9 F 63 16 146/68 H 96 09/15/19 23:58 63 128/66 09/15/19 20:00 98.8 F 72 18 169/83 H 95 09/15/19 19:40 98.8 F 72 18 169/83 H 95 Weight Admit Weight 113.88 kg Weight 113.88 kg I&O: 09/14/19 09/15/19 09/16/19 06:59 06:59 06:59 Intake Total 1050 5210 500 Output Total 150 3200 200 Balance 900 2010 300 Result Diagrams: 09/15/19 16:41 09/16/19 04:08 Phys Exam - Physical Examination Constitutional: NAD HEENT: moist MMs Neck: supple Respiratory: no wheezing, clear to auscultation bilateral Cardiovascular: RRR, no significant murmur Gastrointestinal: soft Musculoskeletal: no edema Neurological: moves all 4 limbs Psychiatric: normal affect, A&O x 3 Skin: no rash Dx/Plan - Plan Plan: 63F with pmh of HTN admitted for severe hypokalemia Severe Hypokalemia likely 2/2 chronic diarrhea - Continue to hold home HCTZ. - 3.4 this AM, continue PO replacement. Recheck this afternoon if pt continues to experience profuse diarrhea. Diarrhea - Workup thus far has been neg. EGD/Colonoscopy yesterday revealed severe left sided diverticulosis, multiple polyps which were removed. Multiple random biopsies taken. F/u on path results. - Imodium 4mg BID. Consider Albendazole, awaiting GI recs - Simethicone and bentyl for abd discomfort DVT PPx: Ther Lovenox Code Status: Full PCP: Loren Addendum - Attending - Attending Attestation Date/Time: 09/16/19 1230 I personally evaluated the patient and discussed the management with Dr. Baker. I agree with the History, Examination, Assessment and Plan documented above with any addition or exceptions noted below.
[2019-09-16] MEDS ORDERED: Dicyclomine 10 MG CAP PO PRN (06:03)
[2019-09-16] MEDS ORDERED: Simethicone Chewable 80 MG TAB PO PRN (06:55)
[2019-09-16] MEDS ORDERED: Potassium Chloride 20 MEQ TAB PO SCH (08:00)
[2019-09-16] MEDS: Lisinopril 20 MG TAB PO SCH (08:57)
[2019-09-16] MEDS: Lactinex Tablet PO SCH ×2 (08:57→21:32)
[2019-09-16] MEDS: Potassium Chloride 20 MEQ TAB PO SCH (08:57)
[2019-09-16] MEDS: Metoprolol Tartrate 100 MG TAB PO SCH ×2 (08:58→21:33)
[2019-09-16] MEDS: Multivit, Therapeutic 1 TAB PO SCH (08:58)
[2019-09-16] MEDS: Aspirin 81 mg Enteric Coated Tablet PO SCH (08:58)
[2019-09-16] MEDS: Amlodipine 5 MG TAB PO SCH (08:58)
[2019-09-16] MEDS: Cyanocobalamin (Vitamin B-12) 1,000 MCG TAB PO SCH (08:58)
[2019-09-16] MEDS: Ondansetron PF 4 MG/2 ML Vial IVP PRN (09:07)
[2019-09-16] MEDS: Loperamide HCl 2 MG CAP PO SCH ×2 (10:14→21:32)
[2019-09-16 16:20] LABS: Anion Gap 12 mmol/L (10-20); BUN (Urea Nitrogen) 12 mg/dL (9.8-20.1); Calc. Creatinine Clearance 138 mL/min (70-130); Calcium 8.4 mg/dL (7.8-10.44); Carbon Dioxide 22 mmol/L (23-31); Chloride 113 mmol/L (98-107); Estimated GFR-MDRD 77; Glucose 136 mg/dL (80-115); Potassium 3.8 mmol/L (3.5-5.1); Sodium 143 mmol/L (136-145)
--- NOTE | 2019-09-16 18:44 | PRG ---
DATE OF SERVICE: 09/16/2019 REASON FOR CONSULTATION: Chronic diarrhea, hypokalemia secondary to chronic diarrhea. SUBJECTIVE: The patient underwent colonoscopy yesterday, and since the procedure itself, stated she has had approximately 6 to 8 liquid bowel movements over the last 12 to 24 hours. She continues to have mild abdominal discomfort, but otherwise denies any hematochezia or melena. So far, she has been receiving loperamide as needed she could ask for the medication and has also started the albendazole with no problems thus far. Otherwise, she denies any nausea, vomiting, fevers, chills, hematemesis, dysphagia or odynophagia. OBJECTIVE: VITAL SIGNS: Temperature 99.1, pulse 67, blood pressure 138/74, respiratory rate 16, and saturating 96% on room air. GENERAL: The patient was sitting at bedside in no acute distress. Alert and oriented x4. CARDIOVASCULAR: Regular rate and rhythm. RESPIRATORY: Clear to auscultation bilaterally. ABDOMEN: Normoactive bowel sounds. Soft, nontender, and nondistended. EXTREMITIES: [id number] nonpitting edema of the bilateral lower extremities extending to mid cox. No cyanosis or clubbing. LABORATORY DATA: Chemistry with a sodium of 143, potassium of 3.4, chloride of 112, CO2 of 26, BUN of 10, creatinine of 0.7, and glucose of 86. IMAGING DATA: The patient underwent EGD and colonoscopy on September 15, 2019. The upper endoscopy was relatively normal except for surgical change consistent with a sleeve gastrectomy. Biopsies were obtained from the duodenum for possible celiac disease versus infection. The colonoscopy showed multiple polyps throughout the colon including 2 cecal polyps, 2 transverse colon polyps, and 2 sigmoid colon polyps with one of those polyps being approximately 2 cm in diameter, that did exhibit increased bleeding post polypectomy. She did have severe left-sided diverticulosis as well, but no etiology for the patient's diarrhea was seen during the exam. ASSESSMENT AND PLAN: The patient is a 63-year-old female with past medical history of hypertension, essential resting tremor, atrial flutter, and breast cancer, presenting with chronic diarrhea. Chronic diarrhea. The patient is presenting with fairly acute onset of diarrhea approximately 5 to 6 weeks ago after the consumption of deer meat chili to where she was having approximately 5 to 8 liquid bowel movements per day. She attempted to use [id number] medications as an outpatient with fairly no relief in symptoms; however, she engages in fairly a low-fiber diet which could contribute to further diarrhea with increasing weakness and dizziness and brought to [facility] for evaluation and was noted to have significant hypokalemia secondary to frequent diarrhea. During the course of this hospitalization with aggressive electrolyte replacement, her potassium is now at a more normal level. She underwent EGD and colonoscopy on September 15, 2019, for further evaluation of a possible intraluminal process, but no obvious cause of her diarrhea is known just yet. Infectious stool studies have been negative thus far with the current differential including infectious etiology (helminthic), microscopic colitis, IBS, celiac disease, malabsorption disorder, eosinophilic gastroenteritis and/or GI neoplasm. RECOMMENDATIONS: 1. We would continue with IV fluid hydration and replacement of electrolytes as you are doing. 2. We would treat the patient empirically for helminthic/worm infection with albendazole. 3. We would hold any additional antibiotics for now given negative stool studies thus far for other obvious pathogen. 4. Continue the patient on Imodium 4 mg b.i.d. as scheduled. 5. Pain control per primary team. 6. We would place the patient on a higher fiber solid diet. 7. We will follow up on the biopsy results with further management guided by the pathology report. We will continue to follow. Please call with any questions. Job ID: [id number]
[2019-09-17 05:20] LABS: Anion Gap 10 mmol/L (10-20); BUN (Urea Nitrogen) 11 mg/dL (9.8-20.1); Calc. Creatinine Clearance 140 mL/min (70-130); Calcium 8.4 mg/dL (7.8-10.44); Carbon Dioxide 25 mmol/L (23-31); Chloride 112 mmol/L (98-107); Estimated GFR-MDRD 78; Glucose 96 mg/dL (80-115); Potassium 3.6 mmol/L (3.5-5.1); Sodium 143 mmol/L (136-145)
--- NOTE | 2019-09-17 06:39 | PDOC.FM ---
- Subjective Subjective: Multiple stools overnight despite Imodium however she reports they have improved in consistency, no longer watery. Does have some mild cramping. Denies fevers, chills. Reports edema but denies SOB. - Objective MAR Reviewed: Yes Vital Signs & Weight: Vital Signs (12 hours) Temp Pulse Resp BP BP Pulse Ox 09/17/19 04:17 98.2 F 62 14 139/87 93 L 09/16/19 23:27 97.9 F 62 14 121/57 L 93 L 09/16/19 20:00 99.1 F 74 12 153/79 H 153/79 H 93 L Weight Admit Weight 113.88 kg Weight 119.295 kg I&O: 09/15/19 09/16/19 09/17/19 06:59 06:59 06:59 Intake Total 5210 1660 2170 Output Total 3200 900 750 Balance 2009 760 1420 Result Diagrams: 09/15/19 16:41 09/17/19 04:32 Phys Exam - Physical Examination Constitutional: NAD HEENT: moist MMs Neck: supple Respiratory: no wheezing, clear to auscultation bilateral Cardiovascular: RRR, no significant murmur Gastrointestinal: soft, non-tender, positive bowel sounds trace edema, nonpitting Neurological: moves all 4 limbs Psychiatric: normal affect, A&O x 3 Skin: no rash Dx/Plan - Plan Plan: 63F with pmh of HTN admitted for severe hypokalemia Severe Hypokalemia likely 2/2 chronic diarrhea - Continue to hold home HCTZ and lasix - Stable at 3.6. 3.8 yesterday afternoon. Continue 80meq PO BID. Diarrhea - Awaiting path results from EGD/colonoscopy biopsies - Continue Albendazole and scheduled Imodium 4mg BID. - Simethicone and bentyl PRN for abd discomfort DVT Ppx: Lovenox Code Status: Full PCP: Loren Addendum - Attending - Attending Attestation Date/Time: 09/17/19 1683 I personally evaluated the patient and discussed the management with Dr. Baker. I agree with the History, Examination, Assessment and Plan documented above with any addition or exceptions noted below.
[2019-09-17] MEDS: Multivit, Therapeutic 1 TAB PO SCH (08:51)
[2019-09-17] MEDS: Lactinex Tablet PO SCH (08:51)
[2019-09-17] MEDS: Amlodipine 5 MG TAB PO SCH (08:51)
[2019-09-17] MEDS: Lisinopril 20 MG TAB PO SCH (08:51)
[2019-09-17] MEDS: Metoprolol Tartrate 100 MG TAB PO SCH ×2 (08:51→20:24)
[2019-09-17] MEDS: Potassium Chloride 20 MEQ TAB PO SCH (08:51)
[2019-09-17] MEDS: Cyanocobalamin (Vitamin B-12) 1,000 MCG TAB PO SCH (08:52)
[2019-09-17] MEDS: Aspirin 81 mg Enteric Coated Tablet PO SCH (08:52)
[2019-09-17] MEDS: Loperamide HCl 2 MG CAP PO SCH ×3 (08:52→20:24)
[2019-09-17] MEDS ORDERED: Loperamide HCl 2 MG CAP PO SCH (09:00)
[2019-09-17] MEDS: Citrucel 500 MG TAB PO SCH (20:24)
--- NOTE | 2019-09-17 20:32 | PRG ---
DATE OF SERVICE: 09/17/2019 REASON FOR CONSULTATION: Chronic diarrhea and hypokalemia secondary to diarrhea. SUBJECTIVE: The patient yesterday did have some mild improvement in her frequency and consistency of stools, but this did not translate into improvement today. She continued to have approximately 6 to 8 liquid bowel movements since this morning with no change in frequency or consistency since initial hospitalization. Loperamide was scheduled for twice daily, but so far she had only received a single dose today. Otherwise, she denies any nausea, vomiting, fevers, chills, hematemesis, dysphagia, or odynophagia. OBJECTIVE: VITAL SIGNS: Temperature 98.7, pulse 61, blood pressure 142/66, respiratory rate 18, and saturating 94% on room air. GENERAL: The patient was lying in bed, in no acute distress. Alert and oriented x4. CARDIOVASCULAR: Regular rate and rhythm. RESPIRATORY: Clear to auscultation bilaterally. ABDOMEN: Normoactive bowel sounds. Soft, nontender, and nondistended. EXTREMITIES: Mild nonpitting edema of the bilateral lower extremities. No cyanosis or clubbing. LABORATORY DATA: CBC with a white blood cell count of 5.4, hemoglobin 12, hematocrit 34.2, platelets 227. Chemistry with a sodium of 143, potassium 3.6, chloride 112, CO2 of 25, BUN 11, creatinine 0.75, and glucose 96. IMAGING DATA: No current GI imaging is available for review. ASSESSMENT AND PLAN: The patient is a 63-year-old female with past medical history of hypertension, essential resting tremor, atrial flutter, and breast cancer, presenting with chronic diarrhea. Chronic diarrhea. The patient initially presented with acute onset of diarrhea approximately 5 to 6 weeks ago after the consumption of deer meat chili. Conservative measures as an outpatient were unsuccessful including antibiotic administration. However, she underwent esophagogastroduodenoscopy and colonoscopy on September 15, 2019 with no obvious etiology for her diarrhea seen, but biopsies taken throughout the small intestine and large intestine. Infectious stool studies thus far have been negative. The differential at this time could include infectious etiology (helminthic), microscopic colitis, IBS, celiac disease, malabsorptive disorder, eosinophilic gastroenteritis, and/or GI neoplasm. RECOMMENDATIONS: 1. We would continue with IV fluid hydration and replacement of electrolytes as you are doing. 2. Continue treatment with albendazole daily for a total duration of therapy 3 days. 3. We would continue to hold any additional antibiotics given negative stool studies thus far. 4. We would increase the Imodium to 4 mg t.i.d. scheduled. 5. Pain control per primary team. 6. We would encourage continued higher fiber diet with supplementation with Citrucel 500 mg daily. 7. We will follow up on the biopsy results with further management guided by pathology report. We would consider addition of budesonide at this point for possible inflammatory process. We will continue to follow. Please call with any questions. Job ID: [id number]
[2019-09-18 05:14] LABS: Anion Gap 7 mmol/L (10-20); BUN (Urea Nitrogen) 11 mg/dL (9.8-20.1); Calc. Creatinine Clearance 153 mL/min (70-130); Carbon Dioxide 24 mmol/L (23-31); Chloride 112 mmol/L (98-107); Estimated GFR-MDRD 82; Glucose 88 mg/dL (80-115); Potassium 3.4 mmol/L (3.5-5.1); Sodium 140 mmol/L (136-145)
--- NOTE | 2019-09-18 07:23 | PDOC.FM ---
- Subjective Subjective: pt resting comfortably in bed, reports nausea/7 episodes of loose stool overnight - Objective Vital Signs & Weight: Vital Signs (12 hours) Temp Pulse Resp BP BP BP Pulse Ox 09/18/19 02:59 97.8 F 55 L 18 144/92 H 94 L 09/18/19 00:00 60 130/66 09/17/19 20:00 98.6 F 65 12 130/60 93 L Weight Admit Weight 113.88 kg Weight 118.07 kg I&O: 09/17/19 09/18/19 09/19/19 06:59 06:59 06:59 Intake Total 2169 2049 Output Total 750 Balance 1420 2049 Result Diagrams: 09/15/19 16:41 09/18/19 04:06 Phys Exam - Physical Examination Constitutional: NAD HEENT: moist MMs Neck: no JVD Gastrointestinal: soft Musculoskeletal: no edema Neurological: moves all 4 limbs Psychiatric: normal affect Skin: no rash Dx/Plan (1) Atrial flutter Code(s): I48.92 - UNSPECIFIED ATRIAL FLUTTER Status: Acute (2) Hypokalemia Code(s): E87.6 - HYPOKALEMIA Status: Acute (3) Diarrhea Code(s): R19.7 - DIARRHEA, UNSPECIFIED Status: Chronic (4) HTN (hypertension) Code(s): I10 - ESSENTIAL (PRIMARY) HYPERTENSION Status: Chronic - Plan Plan: Severe Hypokalemia likely 2/2 chronic diarrhea - Continue to hold home HCTZ and lasix - Continue 80meq PO BID. - monitor Diarrhea - Awaiting path results from EGD/colonoscopy biopsies - Continue Albendazole and scheduled Imodium 4mg BID. - Simethicone and bentyl PRN for abd discomfort Afib - w/ possible flutter on admission, deemed artifact - echo wnl, EP/Cards consulted - continue BB DVT Ppx: Lovenox Code Status: Full [facility]: continue eval for cause. monitor K Addendum - Attending - Attending Attestation Date/Time: 09/18/19 1986 I personally evaluated the patient and discussed the management with Dr. Vasquez I agree with the History, Examination, Assessment and Plan documented above with any addition or exceptions noted below. Lab c/w inflammatory diarrhea w/u in progress s/p endoscopy. Patient tolerating diet and stools semi-formed and frequent. Taking po well and IVF to prevent dehydration. Considered empirical flagyl however I appreciate holding off antibiotics with negative studies thus far for infectious etiologies per GI recommendations.
[2019-09-18] MEDS: Amlodipine 5 MG TAB PO SCH (09:10)
[2019-09-18] MEDS: Potassium Chloride 20 MEQ TAB PO SCH (09:10)
[2019-09-18] MEDS: Cyanocobalamin (Vitamin B-12) 1,000 MCG TAB PO SCH (09:11)
[2019-09-18] MEDS: Loperamide HCl 2 MG CAP PO SCH ×3 (09:11→20:20)
[2019-09-18] MEDS: Lisinopril 20 MG TAB PO SCH (09:11)
[2019-09-18] MEDS: Aspirin 81 mg Enteric Coated Tablet PO SCH (09:11)
[2019-09-18] MEDS: Multivit, Therapeutic 1 TAB PO SCH (09:11)
[2019-09-18] MEDS: Ondansetron PF 4 MG/2 ML Vial IVP PRN (09:11)
[2019-09-18] MEDS: Saccharomyces boulardii 250 MG CAP PO SCH (09:11)
[2019-09-18] MEDS: Metoprolol Tartrate 100 MG TAB PO SCH ×2 (09:32→20:20)
--- NOTE | 2019-09-18 12:18 | PRG ---
DATE OF SERVICE: 09/18/2019 REASON FOR CONSULTATION: Chronic diarrhea and hypokalemia secondary to diarrhea. SUBJECTIVE: With the addition of higher fiber diet and fiber supplementation, the patient continues to have approximately 6 to 8 liquid bowel movements per half day with no change in frequency or consistency. She also continues to have these symptoms despite administration of loperamide scheduled. Biopsies from the upper and lower endoscopy are still pending at this time, and she expressed some frustration with no significant change in her clinical status, but is understanding in terms of the time needed to have some of these studies come back. Otherwise, she denies any nausea, vomiting, fevers, chills, hematemesis, dysphagia, or odynophagia. OBJECTIVE: VITAL SIGNS: Temperature 98.1, pulse 61, blood pressure 178/81, respiratory rate 16, saturating 96% on room air. GENERAL: The patient was lying in bed, in no acute distress. Alert and oriented x4. CARDIOVASCULAR: Regular rate and rhythm. RESPIRATORY: Clear to auscultation bilaterally. ABDOMEN: Normoactive bowel sounds. Soft, nontender, and nondistended. EXTREMITIES: Mild nonpitting edema of the bilateral lower extremities. No cyanosis or clubbing. LABORATORY DATA: Chemistry with a sodium of 140, potassium 3.4, chloride 112, CO2 of 24, BUN 11, creatinine 0.72, glucose 88. IMAGING DATA: No current GI imaging is available for review. ASSESSMENT AND PLAN: The patient is a 63-year-old female with past medical history of hypertension, essential resting tremor, atrial flutter, and breast cancer in remission, presenting with chronic diarrhea. Chronic diarrhea: The patient has initially presented with acute onset of diarrhea approximately 5 to 6 weeks ago after the consumption of deer meat chilli. Conservative measures as an outpatient including ciprofloxacin and metronidazole were unsuccessful in relieving her symptoms. She underwent esophagogastroduodenoscopy and colonoscopy on September 15, 2019, with no obvious etiology for diarrhea seen, but biopsies are still pending at this time. Infectious stool studies have been negative, and she has had no appreciable benefit with scheduled administration of loperamide, fiber supplementation, and administration of albendazole for a possible round worm/helminthic process. At this time, differential could include an infectious etiology (less likely given current studies and lack of response to antibiotics/antiparasitics), microscopic colitis, irritable bowel syndrome (less likely), celiac disease, malabsorptive disorder, eosinophilic gastroenteritis, and/or GI neoplasm. RECOMMENDATIONS: 1. We would continue with IV fluid hydration and replacement electrolytes as you are doing. 2. We would discontinue albendazole today given total duration of therapy of 3 days. 3. Continue scheduled Imodium. 4. Pain control per Primary Team. 5. Continue fiber supplementation and higher fiber diet. 6. I will order a CT scan of the abdomen and pelvis for any extraluminal abnormalities that could be potentially contributing to her diarrhea. 7. We will follow up on the biopsy results, which should be coming back later today. If positive for microscopic colitis, we would then place the patient on budesonide 9 mg daily. 8. We will continue to follow. Please call with any questions. Job ID: [id number]
[2019-09-18] MEDS: Acetaminophen 325 MG TAB PO PRN (12:27)
--- NOTE | 2019-09-18 15:13 | CT ---
EXAM: CT ABDOMEN AND PELVIS HISTORY: Continued diarrhea. Negative EGD and colonoscopy. COMPARISON: 12/05/2017. Procedure: Multiple contiguous axial images were obtained and a CT of the abdomen and pelvis with IV contrast. C oronal reformats were performed. FINDINGS: Lower Chest: within normal limits. Vessels: Normal caliber aorta. Minimal calcified plaque. Heart: Normal heart size. No significant pericardial fluid. Abdomen: Portal vein:Patent. Gallbladder: Surgically absent. 1.3 cm common bile duct, likely reservoir effect from previous cholec ystectomy. Liver: within normal limits. Pancreas: within normal limits. Spleen: within normal limits. Adrenals: within normal limits. Kidneys: Symmetric enhancement. No obstructive uropathy. Peritoneum: No ascites or free air, no fluid collection. Bowel: Gastric mucosa is grossly unremarkable. There is evidence previous surgery along the stomach s uggesting bariatric change. No evidence of small bowel obstruction. Ileocecal junction is unremarkable. Minimal mucosal thickening of the terminal ileum. There is fatty replacement of the muc dudley involving the cecal apex, cecum as well as the junction of the transverse colon and ascending colon. There appears to be a possible apple core-type lesion in the proximal transverse colon. Distal to this apple core-type lesion, the colon is decompressed and mucosal prominence is felt to be due to inadequate distention. Diverticulosis in the left hemicolon, without evidence of diverticulitis. M ucosal prominence of the sigmoid colon likely due to remote bouts of diverticulitis. Appendix is prominent but air-filled. No obvious inflammation. Mesentery and Retroperitoneum: No enlarged mesenteric or retroperitoneal lymph nodes. Abdominal Wall: within normal limits. Pelvis: Reproductive Organs: Surgically absent uterus. Pelvis: No mass, lymphadenopathy, free air or free fluid. Bladder: Limited evaluation due to inadequate bladder distention Bones: within normal limits. IMPRESSION: 1. Mild mucosal prominence scattered throughout the right hemicolon as described above. Possible appl e core lesion in the transverse colon (coronal image 52). There is also fatty replacement of the mucosa involving the cecum. Consider repeat colonoscopy. 2. Diverticulosis in the left hemicolon, without evidence of diverticulitis. 3. Prominent common bile duct, likely due to reservoir effect from previous cholecystectomy. Transcribed Date/Time: 09/18/2019 3:34 PM
[2019-09-18] MEDS ORDERED: Iopamidol-370 76% 500 ML 1 ML ONE (15:50)
[2019-09-18] MEDS: Citrucel 500 MG TAB PO SCH (20:20)
[2019-09-18] MEDS: Cholestyramine/Aspartame 4 gm Packet PO SCH (23:54)
[2019-09-19 05:47] LABS: Anion Gap 9 mmol/L (10-20); BUN (Urea Nitrogen) 8 mg/dL (9.8-20.1); Calc. Creatinine Clearance 149 mL/min (70-130); Calcium 8.6 mg/dL (7.8-10.44); Carbon Dioxide 24 mmol/L (23-31); Chloride 111 mmol/L (98-107); Estimated GFR-MDRD 81; Glucose 84 mg/dL (80-115); Potassium 3.5 mmol/L (3.5-5.1); Sodium 140 mmol/L (136-145)
--- NOTE | 2019-09-19 07:20 | PDOC.FM ---
- Subjective Subjective: pt resting comfortably in bed, reports diarrhea has improved, denies abdominal pain - Objective Vital Signs & Weight: Vital Signs (12 hours) Temp Pulse Resp BP Pulse Ox 09/18/19 19:58 98.5 F 60 18 125/72 96 Weight Admit Weight 113.88 kg Weight 118.07 kg I&O: 09/17/19 09/18/19 09/19/19 06:59 06:59 06:59 Intake Total 2170 2049 1320 Output Total 750 750 Balance 1420 2049 570 Result Diagrams: 09/15/19 16:41 09/19/19 04:07 Phys Exam - Physical Examination Constitutional: NAD HEENT: moist MMs Neck: no JVD Gastrointestinal: non-tender, no distention Musculoskeletal: no edema Neurological: moves all 4 limbs Psychiatric: normal affect Skin: no rash Dx/Plan (1) Atrial flutter Code(s): I48.92 - UNSPECIFIED ATRIAL FLUTTER Status: Acute (2) Hypokalemia Code(s): E87.6 - HYPOKALEMIA Status: Acute (3) Diarrhea Code(s): R19.7 - DIARRHEA, UNSPECIFIED Status: Chronic (4) HTN (hypertension) Code(s): I10 - ESSENTIAL (PRIMARY) HYPERTENSION Status: Chronic - Plan Plan: Severe Hypokalemia likely 2/2 chronic diarrhea - Continue to hold home HCTZ and lasix - Continue 80meq PO BID. - monitor Diarrhea - workup wnl at this point - Continue Albendazole and scheduled Imodium 4mg BID. - Simethicone and bentyl PRN for abd discomfort Afib - w/ possible flutter on admission, deemed artifact - echo wnl, EP/Cards consulted - continue BB possible apple-core lesion - per CT scan, consider repeat colonoscopy DVT Ppx: Lovenox Code Status: Full PCP: [facility] dispo: improving, monitor K. possible DC tomorrow Addendum - Attending - Attending Attestation Date/Time: 09/19/19 1229 I personally evaluated the patient and discussed the management with Dr. Vasquez I agree with the History, Examination, Assessment and Plan documented above with any addition or exceptions noted below. CT scan finding noted questionable apple core type lesion consider CEA and discuss with GI . Pathology from endoscopy do not suggest celiac or collagenous colitis. Stool more formed and less frequent. History of gastric sleeve and cholecystectomy may be contributing to delayed resolution. Patient with PMHX breast CA 2004 and she voices concerns as recurrence and relayed this is a consideration with prolonged diarrhea and this is being evaluated.
[2019-09-19] MEDS: Loperamide HCl 2 MG CAP PO SCH ×3 (10:16→20:28)
[2019-09-19] MEDS: Lisinopril 20 MG TAB PO SCH (10:16)
[2019-09-19] MEDS: Cyanocobalamin (Vitamin B-12) 1,000 MCG TAB PO SCH (10:17)
[2019-09-19] MEDS: Saccharomyces boulardii 250 MG CAP PO SCH (10:18)
[2019-09-19] MEDS: Multivit, Therapeutic 1 TAB PO SCH (10:18)
[2019-09-19] MEDS: Aspirin 81 mg Enteric Coated Tablet PO SCH (10:18)
[2019-09-19] MEDS: Potassium Chloride 20 MEQ TAB PO SCH (10:18)
[2019-09-19] MEDS: Amlodipine 5 MG TAB PO SCH (10:19)
[2019-09-19] MEDS: Cholestyramine/Aspartame 4 gm Packet PO SCH ×2 (10:19→22:13)
[2019-09-19] MEDS: Metoprolol Tartrate 100 MG TAB PO SCH ×2 (10:19→20:29)
[2019-09-19] MEDS: Ondansetron PF 4 MG/2 ML Vial IVP PRN (12:15)
[2019-09-19 18:17] VITALS: BMI 44.6
[2019-09-19 19:43] LABS: Anion Gap 11 mmol/L (10-20); Carbon Dioxide 22 mmol/L (23-31); Chloride 110 mmol/L (98-107); Sodium 139 mmol/L (136-145)
--- NOTE | 2019-09-19 19:56 | PRG ---
DATE OF SERVICE: 09/19/2019 REASON FOR CONSULTATION: Chronic diarrhea and hypokalemia secondary to diarrhea. SUBJECTIVE: With the current regimen of a higher fiber diet, fiber supplementation, loperamide, and cholestyramine, the patient states that she continued to have approximately 6 to 8 liquid bowel movements today, but stated that her stool consistency has solidified somewhat ([place] 5) with no difficulty with defecation. She did have some mild nausea earlier today with the administration of multiple medications at one time. Otherwise, she denies any vomiting, fevers, chills, hematemesis, melena, hematochezia, dysphagia, or odynophagia. OBJECTIVE: VITAL SIGNS: Temperature 98.8, pulse 64, blood pressure 152/88, respiratory rate 18, saturating 93% on room air. GENERAL: The patient was lying in bed, in no acute distress. Alert and oriented x4. CARDIOVASCULAR: Regular rate and rhythm. RESPIRATORY: Clear to auscultation bilaterally. ABDOMEN: Normoactive bowel sounds. Soft, nontender, nondistended. EXTREMITIES: Mild nonpitting edema at the bilateral lower extremities. No cyanosis or clubbing. LABORATORY DATA: Chemistry with a sodium of 140, potassium 3.5, chloride 111, CO2 of 24, BUN 8, creatinine 0.73, glucose 84. IMAGING DATA: CT scan obtained on September 18, 2019 showed surgical change consistent with cholecystectomy but with a mildly dilated common bile duct at 1.3 cm that was determined to be likely reservoir effect from previous cholecystectomy and no evidence of mass, lesions, or stricture. Also, seen was surgical change consistent with a gastric sleeve bariatric surgery. There was no evidence of small bowel obstruction. There was minimal mucosal thickening within the terminal ileum and fatty replacement of the mucosa involving the cecal apex, cecum, as well as the junction of the transverse colon and ascending colon. However, there appeared to be a possible apple-core type lesion in the proximal transverse colon and due to the presence of this lesion, the colon was decompressed with the mucosal prominence, was felt to be possibly due to inadequate distention. Diverticulosis was seen in the left hemicolon without evidence of diverticulitis. The appendix was prominent, but air-filled. There was no enlarged mesenteric or retroperitoneal lymph nodes. The uterus was surgically absent and otherwise normal findings. The biopsies obtained during the EGD and colonoscopy on September 15, 2019, showed normal duodenal biopsies without evidence of celiac sprue or infection. Random colon biopsies were also normal with no evidence of lymphocytic or collagenous colitis. Multiple polyps were removed from the colon with the largest being within the sigmoid colon measuring approximately 2 to 3 cm in size that was read as a tubulovillous adenoma. ASSESSMENT: The patient is a 63-year-old female with past medical history of hypertension, essential resting tremor, atrial flutter, and breast cancer in remission, presenting with chronic diarrhea. 1. Chronic diarrhea. The patient initially presented with acute onset of diarrhea approximately 5 to 6 weeks ago after the consumption of deer meat chili. Outpatient administration of antibiotics including ciprofloxacin and metronidazole were unsuccessful in relieving her symptoms. She underwent EGD and colonoscopy on September 15, 2019 with normal biopsies of the duodenum and colon. Infectious stool studies obtained during this admission were also negative. There was some concern for possible parasitic infection via roundworm/helminthic process with albendazole 400 mg x3 x 3 days, not relieving her symptoms. At this time, the origin of her diarrhea is unclear with the current differential including infectious etiology (less likely). 2. Irritable bowel syndrome (less likely given degree of diarrhea). 3. Bile acid diarrhea. 4. Malabsorption disorder. 5. Eosinophilic gastroenteritis (less likely given negative biopsies). 6. Carcinoid syndrome (less likely). 7. Vipoma (much less likely). 8. Gutierrez-Berg syndrome (less likely given negative duodenal biopsies). RECOMMENDATIONS: 1. Would continue with gentle IV fluid hydration and replacement of electrolytes. 2. Would discontinue albendazole. 3. Continue to schedule the Imodium/loperamide. 4. Continue with fiber supplementation and higher fiber diet. 5. Continue with cholestyramine 1 packet twice daily and could consider increasing up to 4 times daily for bile acid diarrhea. 6. We will order a 24-hour urine collection for 5-HIAA for possible carcinoid syndrome, and also order a serum gastrin and vasoactive intestinal peptide. 7. We will also order fecal pH and stool electrolytes for evaluation of an osmotic versus secretory diarrhea (likely secretory). 8. Would consider addition of rifaximin 550 mg t.i.d. for possible small intestinal bacterial overgrowth. We will continue to follow. Please call with any questions. Job ID: [id number]
[2019-09-19] MEDS: Citrucel 500 MG TAB PO SCH (20:29)
[2019-09-20 04:39] LABS: Anion Gap 10 mmol/L (10-20); BUN (Urea Nitrogen) 8 mg/dL (9.8-20.1); Calc. Creatinine Clearance 153 mL/min (70-130); Calcium 8.5 mg/dL (7.8-10.44); Carbon Dioxide 23 mmol/L (23-31); Chloride 110 mmol/L (98-107); Estimated GFR-MDRD 83; Glucose 84 mg/dL (80-115); Potassium 3.5 mmol/L (3.5-5.1); Sodium 139 mmol/L (136-145)
[2019-09-20] MEDS: Acetaminophen 325 MG TAB PO PRN (04:46)
--- NOTE | 2019-09-20 06:57 | PDOC.FM ---
- Subjective Subjective: pt resting comfortably in bed, still having diarrhea, denies abdominal pain - Objective Vital Signs & Weight: Vital Signs (12 hours) Temp Pulse Resp BP Pulse Ox 09/20/19 04:00 98.2 F 55 L 18 148/69 H 94 L 09/19/19 19:30 98.7 F 81 14 150/58 H 94 L Weight Admit Weight 113.88 kg Weight 118.07 kg I&O: 09/18/19 09/19/19 09/20/19 06:59 06:59 06:59 Intake Total 2049 1320 1440 Output Total 750 250 Balance 2049 570 1190 Result Diagrams: 09/15/19 16:41 09/20/19 03:58 Phys Exam - Physical Examination Constitutional: NAD HEENT: moist MMs Neck: no JVD Gastrointestinal: soft, no distention Musculoskeletal: no edema Neurological: moves all 4 limbs Psychiatric: normal affect Skin: no rash Dx/Plan (1) Atrial flutter Code(s): I48.92 - UNSPECIFIED ATRIAL FLUTTER Status: Acute (2) Hypokalemia Code(s): E87.6 - HYPOKALEMIA Status: Acute (3) Diarrhea Code(s): R19.7 - DIARRHEA, UNSPECIFIED Status: Chronic (4) HTN (hypertension) Code(s): I10 - ESSENTIAL (PRIMARY) HYPERTENSION Status: Chronic - Plan Plan: Severe Hypokalemia likely 2/2 chronic diarrhea - Continue to hold home HCTZ and lasix - Continue 80meq K PO BID. - monitor Diarrhea - workup wnl at this point - Albendazole completed and scheduled Imodium 4mg BID, cholestyramine - Simethicone and bentyl PRN for abd discomfort Afib - w/ possible flutter on admission, deemed artifact - echo wnl, EP/Cards consulted - continue BB DVT Ppx: Lovenox Code Status: [facility] further eval of diarrhea Addendum - Attending - Attending Attestation Date/Time: 09/20/19 1840 I personally evaluated the patient and discussed the management with I agree with the History, Examination, Assessment and Plan documented above with any addition or exceptions noted below.
[2019-09-20] MEDS: Cholestyramine/Aspartame 4 gm Packet PO SCH (09:21)
[2019-09-20] MEDS: Potassium Chloride 20 MEQ TAB PO SCH (09:22)
[2019-09-20] MEDS: Lisinopril 20 MG TAB PO SCH (09:23)
[2019-09-20] MEDS: Aspirin 81 mg Enteric Coated Tablet PO SCH (09:24)
[2019-09-20] MEDS: Amlodipine 5 MG TAB PO SCH (09:24)
[2019-09-20] MEDS: Metoprolol Tartrate 100 MG TAB PO SCH ×2 (09:25→22:33)
[2019-09-20] MEDS: Loperamide HCl 2 MG CAP PO SCH ×3 (09:25→21:51)
[2019-09-20] MEDS: Saccharomyces boulardii 250 MG CAP PO SCH (09:25)
[2019-09-20] MEDS: Multivit, Therapeutic 1 TAB PO SCH (09:25)
[2019-09-20] MEDS: Cyanocobalamin (Vitamin B-12) 1,000 MCG TAB PO SCH (09:25)
[2019-09-20] MEDS: Ondansetron PF 4 MG/2 ML Vial IVP PRN (09:30)
[2019-09-20 12:59] LABS: Ref Lab Test Ordered pH STOOL; Reference Lab Name LABCORP
--- NOTE | 2019-09-20 19:15 | PRG ---
DATE OF SERVICE: 09/20/2019 REASON FOR CONSULTATION: Chronic diarrhea. SUBJECTIVE: The patient states that over the last 2 days while being administered cholestyramine, she has felt "hot on my inside" and general fatigue/malaise. She also states that she had been having subjective fevers and chills with administration of cholestyramine as well. Currently, she continues to have 6 to 8 liquid bowel movements per day that have worsened since starting the cholestyramine (at least the way that she feels), but denies any other symptoms. Currently, she denies any nausea, vomiting, fevers, chills, hematemesis, melena, hematochezia, dysphagia, or odynophagia. OBJECTIVE: VITAL SIGNS: Temperature 98.7, pulse 58, blood pressure 126/76, respiratory rate 16, and saturating 93% on room air. GENERAL: The patient was lying in bed, in no acute distress. Alert and oriented x4. CARDIOVASCULAR: Regular rate and rhythm. RESPIRATORY: Clear to auscultation bilaterally. ABDOMEN: Normoactive bowel sounds. Soft, nontender, nondistended. EXTREMITIES: Mild nonpitting edema of the bilateral lower extremities. No cyanosis or clubbing. LABORATORY DATA: Chemistry with a sodium of 139, potassium 3.5, chloride 110, CO2 of 23, BUN 8, creatinine 0.71, glucose 84. IMAGING DATA: No current GI imaging is available for review. ASSESSMENT AND PLAN: The patient is a 63-year-old female with past medical history of hypertension, essential resting tremor, atrial flutter, and breast cancer, in remission, presenting with chronic diarrhea. 1. Chronic diarrhea. a. The patient initially presented with acute onset of diarrhea approximately 5 to 6 weeks ago after the consumption of deer meat chili. She was subsequently placed on antibiotics including ciprofloxacin and metronidazole, which were unsuccessful in relieving her symptoms. She underwent EGD and colonoscopy on September 15, 2019, with normal biopsies of the duodenum and colon. Workup thus far has been negative for an infectious etiology including parasite (also has not responded to use of albendazole), celiac disease, probable bile acid diarrhea (given nonresponse to cholestyramine), osmotic diarrhea from a probable food stuffs (artificial sweeteners), lactose intolerance, sepsis, or obvious intraperitoneal abnormality as evidenced by negative CT scan. Based on her symptoms and based on the fact that first stooling habits did not decrease with fasting states, this is most likely a secretory diarrhea. Current differential could include carcinoid tumor, vipoma, Gutierrez-Berg syndrome (highly unlikely) infectious etiology (less likely given negative stool studies thus far and not responding to antibiotics), paraneoplastic syndrome, [place] diarrhea, amyloidosis (unlikely) small intestinal bacterial overgrowth and/or possible pancreatic exocrine insufficiency (highly unlikely). RECOMMENDATIONS: 1. We will continue with aggressive replacement of electrolytes. 2. Continue scheduled Imodium. 3. Continue with fiber supplementation and higher fiber diet. 4. Discontinue cholestyramine administration given lack of response thus far and increasing side effects. 5. We will follow up on the 24-urine collection for possible carcinoid syndrome. 6. We will follow up on the serum gastrin and vasoactive intestinal peptide as well. 7. We will follow up on the fecal pH and stool electrolytes for helping to differentiate between osmotic versus expiratory diarrhea (likely water chemist). 8. Would consider addition of rifaximin 550 mg t.i.d. for possible small intestinal bacterial overgrowth. 9. We will order serum antinuclear antibodies for possible autoimmune vasculitis. We will continue to follow. Please call with any questions. Job ID: [id number]
[2019-09-20] MEDS: Citrucel 500 MG TAB PO SCH (21:49)
[2019-09-21] MEDS: Acetaminophen 325 MG TAB PO PRN (04:13)
[2019-09-21 04:55] LABS: Anion Gap 9 mmol/L (10-20); BUN (Urea Nitrogen) 9 mg/dL (9.8-20.1); Calc. Creatinine Clearance 131 mL/min (70-130); Calcium 8.7 mg/dL (7.8-10.44); Carbon Dioxide 27 mmol/L (23-31); Chloride 109 mmol/L (98-107); Estimated GFR-MDRD 72; Glucose 82 mg/dL (80-115); Sodium 141 mmol/L (136-145)
--- NOTE | 2019-09-21 07:52 | PDOC.FM ---
- Subjective Subjective: pt resting comfortably in bed, diarrhea unchanged, denies abdominal pain - Objective Vital Signs & Weight: Vital Signs (12 hours) Temp Pulse Resp BP Pulse Ox 09/21/19 07:17 98.7 F 59 L 18 156/110 H 93 L 09/21/19 04:05 98.2 F 77 15 122/58 L 94 L 09/21/19 00:00 55 L 09/20/19 20:00 98.1 F 56 L 19 134/60 93 L Weight Admit Weight 113.88 kg Weight 114.94 kg I&O: 09/20/19 09/21/19 09/22/19 06:59 06:59 06:59 Intake Total 1440 2050 Output Total 250 1400 Balance 1190 650 Result Diagrams: 09/15/19 16:41 09/21/19 03:54 Phys Exam - Physical Examination Constitutional: NAD HEENT: moist MMs Neck: supple Gastrointestinal: no distention Musculoskeletal: pulses present Neurological: moves all 4 limbs Psychiatric: normal affect Skin: no rash Dx/Plan (1) Atrial flutter Code(s): I48.92 - UNSPECIFIED ATRIAL FLUTTER Status: Acute (2) Hypokalemia Code(s): E87.6 - HYPOKALEMIA Status: Acute (3) Diarrhea Code(s): R19.7 - DIARRHEA, UNSPECIFIED Status: Chronic (4) HTN (hypertension) Code(s): I10 - ESSENTIAL (PRIMARY) HYPERTENSION Status: Chronic - Plan Plan: Severe Hypokalemia likely 2/2 chronic diarrhea - Continue to hold home HCTZ and lasix - reduce to 40 meq K daily - monitor Diarrhea - workup wnl at this point - Albendazole completed and scheduled Imodium 4mg BID, dc cholestyramine - Simethicone and bentyl PRN for abd discomfort Afib - w/ possible flutter on admission, deemed artifact - echo wnl, EP/Cards consulted - continue BB DVT Ppx: Lovenox Code Status: Full PCP: [facility] dispo: further eval of diarrhea Addendum - Attending - Attending Attestation Date/Time: 09/21/19 1052 I personally evaluated the patient and discussed the management with Dr. Vasquez I agree with the History, Examination, Assessment and Plan documented above with any addition or exceptions noted below. Patient states maybe worse with questran and discontinued. Extensive work up underway per GI results non-revealing thus far note consideration of bacterial overgrowth and possible rixampine treatment pending further study results. Appreciate GI evaluation/recommendations hydration status good at present continue expectant management.
[2019-09-21] MEDS: Potassium Chloride 20 MEQ TAB PO SCH (08:09)
[2019-09-21] MEDS: Lisinopril 20 MG TAB PO SCH (08:10)
[2019-09-21] MEDS: Loperamide HCl 2 MG CAP PO SCH ×3 (08:10→20:49)
[2019-09-21] MEDS: Metoprolol Tartrate 100 MG TAB PO SCH ×2 (08:11→20:50)
[2019-09-21] MEDS: Cyanocobalamin (Vitamin B-12) 1,000 MCG TAB PO SCH (08:11)
[2019-09-21] MEDS: Saccharomyces boulardii 250 MG CAP PO SCH (08:11)
[2019-09-21] MEDS: Amlodipine 5 MG TAB PO SCH (08:11)
[2019-09-21] MEDS: Multivit, Therapeutic 1 TAB PO SCH (08:11)
[2019-09-21] MEDS: Ondansetron PF 4 MG/2 ML Vial IVP PRN (08:14)
--- NOTE | 2019-09-21 19:27 | PRG ---
DATE OF SERVICE: 09/21/2019 REASON FOR CONSULTATION: Chronic diarrhea. SUBJECTIVE: The patient states that today she has had approximately 3 to 4 semi-solid bowel movements and is feeling much better when compared to yesterday. Within the last 24 hours, her cholestyramine was discontinued, and with discontinuation of this medication, she adds that it has improved her overall well being somewhat. Currently, she denies any nausea, vomiting, fevers, chills, abdominal pain, hematemesis, melena, hematochezia, dysphagia, or odynophagia. She has been able to tolerate a solid diet without difficulty, although has noticed some increased diarrhea with consumption of salads. OBJECTIVE: VITAL SIGNS: Temperature 97.8, pulse 64, blood pressure 168/87, respiratory rate 18, saturating 99% on room air. GENERAL: The patient was lying in bed, in no acute distress. Alert and oriented x4. CARDIOVASCULAR: Regular rate and rhythm. RESPIRATORY: Clear to auscultation bilaterally. ABDOMEN: Normoactive bowel sounds. Soft, nontender, nondistended. EXTREMITIES: Mild nonpitting edema of bilateral lower extremities. No cyanosis or clubbing. LABORATORY DATA: Chemistry with a sodium of 141, potassium 4, chloride 109, CO2 of 27, BUN 9, creatinine 0.81, glucose 82. IMAGING DATA: No current GI imaging is available for review. ASSESSMENT AND PLAN: The patient is a 63-year-old female with past medical history of hypertension, essential; resting tremor; atrial flutter; and breast cancer, in remission; presenting with chronic diarrhea. 1. Chronic diarrhea. During the course of this hospitalization, the patient has undergone an extensive workup and has been negative thus far for infectious etiology, celiac disease, microscopic colitis, bile acid diarrhea, osmotic diarrhea, lactose intolerance, sepsis, or obvious intraperitoneal abnormality as evidenced by negative CT scan. At this point, the origin of her chronic diarrhea is unclear, but most likely related to a secretory diarrhea. Current differential could include carcinoid tumor, VIPoma, Gutierrez-Berg syndrome (unlikely), infectious etiology (less likely given negative studies thus far), paraneoplastic syndrome, [place] diarrhea, amyloidosis (very unlikely), small intestinal bacterial overgrowth and/or possible pancreatic exocrine insufficiency (unlikely). Recommendations;. a. We will continue with electrolyte replacement as you are doing. b. Continue scheduled Imodium. c. Continue fiber supplementation with higher fiber diet. d. We will follow up on the studies for 5-HIAA, serum gastrin, vasoactive intestinal peptide, fecal pH/stool electrolytes, and serum tryptase. e. If the patient is not responding further, would add rifaximin 550 mg t.i.d. for possible small intestinal bacterial overgrowth. Given the improvement in the patient's clinical status, normalization of her potassium and significant decrease in her frequency of diarrhea. If the patient is doing well tomorrow with normal potassium while on minimal potassium replacement, she could be potentially discharged to home with followup in the outpatient clinic. Job ID: [id number]
[2019-09-21] MEDS: Citrucel 500 MG TAB PO SCH (20:49)
[2019-09-22] MEDS: Acetaminophen 325 MG TAB PO PRN (05:05)
[2019-09-22 05:24] LABS: Anion Gap 12 mmol/L (10-20); BUN (Urea Nitrogen) 9 mg/dL (9.8-20.1); Calc. Creatinine Clearance 139 mL/min (70-130); Carbon Dioxide 24 mmol/L (23-31); Chloride 109 mmol/L (98-107); Estimated GFR-MDRD 77; Glucose 87 mg/dL (80-115); Potassium 3.8 mmol/L (3.5-5.1); Sodium 141 mmol/L (136-145)
--- NOTE | 2019-09-22 08:18 | PDOC.FM ---
- Subjective Subjective: pt resting comfortably in bed, tolerating PO, soft stools present - Objective Vital Signs & Weight: Vital Signs (12 hours) Temp Pulse Resp BP Pulse Ox 09/22/19 07:14 99 F 54 L 18 147/74 H 93 L 09/22/19 04:53 97.8 F 57 L 16 133/66 94 L Weight Admit Weight 113.88 kg Weight 114.56 kg I&O: 09/21/19 09/22/19 09/23/19 06:59 06:59 06:59 Intake Total 2049 2079 Output Total 1400 1200 Balance 650 880 Result Diagrams: 09/15/19 16:41 09/22/19 04:21 Phys Exam - Physical Examination Constitutional: NAD HEENT: moist MMs Neck: no JVD Gastrointestinal: soft, non-tender, no distention Musculoskeletal: no edema Neurological: moves all 4 limbs Psychiatric: normal affect Skin: no rash Dx/Plan (1) Atrial flutter Code(s): I48.92 - UNSPECIFIED ATRIAL FLUTTER Status: Acute (2) Hypokalemia Code(s): E87.6 - HYPOKALEMIA Status: Acute (3) Diarrhea Code(s): R19.7 - DIARRHEA, UNSPECIFIED Status: Chronic (4) HTN (hypertension) Code(s): I10 - ESSENTIAL (PRIMARY) HYPERTENSION Status: Chronic - Plan Plan: Severe Hypokalemia likely 2/2 chronic diarrhea, stable - Continue to hold home HCTZ and lasix - 40 meq K daily - monitor Diarrhea - workup wnl at this point, labs still pending - Albendazole completed and scheduled Imodium 4mg BID, dc cholestyramine - Simethicone and bentyl PRN for abd discomfort Afib - w/ possible flutter on admission, deemed artifact - echo wnl, EP/Cards consulted - continue BB DVT Ppx: Lovenox Code Status: Full PCP: [facility] dispo: potential DC later today Addendum - Attending - Attending Attestation Date/Time: 09/22/19 6331 I personally evaluated the patient and discussed the management with Dr. Vasquez I agree with the History, Examination, Assessment and Plan documented above with any addition or exceptions noted below.
[2019-09-22] MEDS: Lisinopril 20 MG TAB PO SCH (08:34)
[2019-09-22] MEDS: Cyanocobalamin (Vitamin B-12) 1,000 MCG TAB PO SCH (08:34)
[2019-09-22] MEDS: Loperamide HCl 2 MG CAP PO SCH (08:34)
[2019-09-22] MEDS: Saccharomyces boulardii 250 MG CAP PO SCH (08:34)
[2019-09-22] MEDS: Amlodipine 5 MG TAB PO SCH (08:35)
[2019-09-22] MEDS: Multivit, Therapeutic 1 TAB PO SCH (08:35)
[2019-09-22] MEDS: Potassium Chloride 20 MEQ TAB PO SCH (08:35)
[2019-09-22] MEDS: Metoprolol Tartrate 100 MG TAB PO SCH (08:35)
[2019-09-22] MEDS: Ondansetron PF 4 MG/2 ML Vial IVP PRN (10:15)
[2019-09-22] MEDS ORDERED: Ondansetron ODT 4 MG TAB PO PRN (10:56)
[2019-09-22 11:16] VITALS: BP 128/74; TEMP 98.1
[2019-09-24 07:09] LABS: Tryptase 5.8 ug/L (2.2-13.2)
== END 2019-09-22 13:55 | disposition home or self-care (01) | DRG 392 ==
LOC: ERS 19:27 → 2NO 23:49
PROVIDERS: ADMIT Family Medicine; ATTEND Family Medicine
PROC: 0DJ08ZZ Inspection of Upper Intestinal Tract, Via Natural or Artificial Opening Endoscopic (ICD-10-PCS; principal; 2019-09-15)
PROC: 0DB98ZX Excision of Duodenum, Via Natural or Artificial Opening Endoscopic, Diagnostic (ICD-10-PCS; 2019-09-15)
PROC: 0DBE8ZZ Excision of Large Intestine, Via Natural or Artificial Opening Endoscopic (ICD-10-PCS; 2019-09-15)
PROC: 0DBL8ZZ Excision of Transverse Colon, Via Natural or Artificial Opening Endoscopic (ICD-10-PCS; 2019-09-15)
DX: K52.9 Noninfective gastroenteritis and colitis, unspecified (principal); I48.92 Unspecified atrial flutter; Z68.41 Body mass index [BMI] 40.0-44.9, adult; E87.6 Hypokalemia; R19.7 Diarrhea, unspecified; I10 Essential (primary) hypertension; Z88.2 Allergy status to sulfonamides; Z88.5 Allergy status to narcotic agent; Z79.82 Long term (current) use of aspirin; Z85.3 Personal history of malignant neoplasm of breast; Z90.49 Acquired absence of other specified parts of digestive tract; Z98.84 Bariatric surgery status; Z90.710 Acquired absence of both cervix and uterus; Z87.891 Personal history of nicotine dependence; E66.9 Obesity, unspecified; M79.651 Pain in right thigh; K57.90 Diverticulosis of intestine, part unspecified, without perforation or abscess without bleeding
CPT/HCPCS: 36415; 36416; 74177; 80048; 80053; 82941; 83497; 83516; 83519; 83630; 83735; 84100; 84443; 84586; 85025; 85652; 86140; 86674; 87015; 87045; 87046; 87177; 87206; 87324; 87328; 87329; 87427; 87449; 88305; 93005; 93010; 93306; 94760; 96365; 96366; 96372; 96375; J1650; J2270; J2405; J2704; J3010; J3480; J7050; Q0162; Q9967

== ENCOUNTER 2019-12-27 09:40 | Outpatient (CLI) | payer OTHER ==
--- NOTE | 2019-12-27 12:01 | CT ---
EXAM: CT Abdomen Pelvis W Con PROVIDED CLINICAL HISTORY: Abdominal pain and diarrhea COMPARISON: 09/18/2019 FINDINGS: The visualized lung bases remain free of significant opacity. Coronary calcium is demonstrated. The liver, spleen, pancreas, kidneys and adrenal glands appear unremarkable. Prominence of the common duct is redemonstrated with mild prominence of the intrahepatic biliary system, similar to prior. Conspicuous sigmoid colonic diverticulosis is demonstrated. There is gas within a portion of the urin carolin bladder as well as possible mild stranding of the fat about the urinary bladder. 8 portion of the sigmoid colon overlies the dome of the urinary bladder. There is no juxta colonic fat stranding, free fluid or free air apparent. No evidence for bowel obstruction. Postoperative changes of sleeve gastrectomy are redemonstrated. Post cholecystectomy changes are redemonstrated. Vascular calcification involves the abdominal aorta and its branches. The osseous structures demonstrate no concerning lytic or blastic lesions. Lumbar spine degenerative changes are seen. IMPRESSION: 1. Foci of gas within the urinary bladder, suggesting fistula to bowel. Haziness of the fat surroundi ng the urinary bladder could reflect changes of cystitis. 2. Conspicuous sigmoid diverticulosis without CT evidence for acute diverticulitis. 3. Persistent intrahepatic and extrahepatic biliary ductal dilatation.
== END 2019-12-27 09:41 | disposition home or self-care (01) ==
LOC: SCSCT 09:40
PROVIDERS: ATTEND Internal Medicine
DX: D12.6 Benign neoplasm of colon, unspecified (principal); R19.7 Diarrhea, unspecified; R10.32 Left lower quadrant pain; A04.72 Enterocolitis due to Clostridium difficile, not specified as recurrent; K83.8 Other specified diseases of biliary tract; N32.89 Other specified disorders of bladder; K57.30 Diverticulosis of large intestine without perforation or abscess without bleeding
CPT/HCPCS: 74177

== ENCOUNTER 2020-01-23 08:08 | Outpatient (CLI) | payer OTHER ==
[2020-01-23 14:25] LABS: #Basophils 0.1 thou/uL (0.0-0.2); #Eosinphils 0.1 thou/uL (0.0-0.7); #Lymphocytes 2.2 thou/uL (1.20-3.40); #Monocytes 0.4 thou/uL (0.11-0.59); #Neutrophils 3.3 thou/uL (1.40-6.50); %Basophils 0.8 % (0.0-1.0); %Lymphocytes 36.2 % (21.0-51.0); %Monocytes 6.2 % (0.0-10.0); %Neutrophils 54.8 % (42.0-75.0); Hemoglobin 14.7 g/dL (12.0-16.0); Mean Corpuscular Hemoglobin 31.2 pg (27.0-31.0); Mean Corpuscular Volume 94.6 fL (78.0-98.0); Mean Platelet Volume 9.2 fL (7.4-10.4); Platelet Count 261 thou/uL (130-400); RBC Distribution Width 13.1 % (11.5-14.5); Red Blood Cell (RBC) Count 4.72 mill/uL (4.20-5.40); White Blood Cell (WBC) Count 6.1 thou/uL (4.8-10.8)
[2020-01-23 14:44] LABS: Anion Gap 13 mmol/L (10-20); BUN (Urea Nitrogen) 18 mg/dL (9.8-20.1); Calc. Creatinine Clearance 0 mL/min (70-130); Calcium 9.6 mg/dL (7.8-10.44); Carbon Dioxide 28 mmol/L (23-31); Chloride 103 mmol/L (98-107); Estimated GFR-MDRD 66; Glucose 166 mg/dL (80-115); Potassium 3.8 mmol/L (3.5-5.1); Sodium 140 mmol/L (136-145)
[2020-01-23 14:47] LABS: Hemoglobin A1c 5.9 % (4.0-6.0)
[2020-01-24 12:44] LABS: SARS-CoV-2 MS2 Positive; SARS-CoV-2 N Gene Negative; SARS-CoV-2 S Gene Negative; SARS-CoV-2 orf1ab Negative
== END 2020-01-23 08:09 | disposition home or self-care (01) ==
LOC: LABBT 08:08
PROVIDERS: ATTEND Surgery
DX: Z01.818 Encounter for other preprocedural examination (principal); Z11.59 Encounter for screening for other viral diseases; N32.1 Vesicointestinal fistula
CPT/HCPCS: 80048; 83036; 85025; 87635; U0003

== ENCOUNTER 2020-01-23 11:00 | Inpatient (IN) | payer OTHER ==
[2020-01-25] MEDS ORDERED: Fentanyl 100 MCG/2 ML VIAL ONE ×4 (07:52→12:51)
[2020-01-25] MEDS ORDERED: EPINEPHrine 1 MG/ML AMP ONE (07:52)
[2020-01-25] MEDS ORDERED: Midazolam HCl 2 mg/2 ml Vial ONE ×2 (07:52→09:36)
[2020-01-25] MEDS ORDERED: Methylene Blue 50 MG/10 ML AMPUL ONE (10:54)
[2020-01-25] MEDS ORDERED: Promethazine HCl 25 MG/ML VIAL IM PRN ×3 (12:22→13:00)
[2020-01-25] MEDS ORDERED: diphenhydrAMINE 50 MG/ML VIAL IVP PRN (12:22)
[2020-01-25] MEDS ORDERED: Promethazine HCl 25 MG/ML VIAL SLOW IVP PRN (12:22)
[2020-01-25] MEDS ORDERED: diphenhydrAMINE 25 MG CAP PO PRN (12:22)
[2020-01-25] MEDS ORDERED: Naloxone HCl 0.4 mg/ml Vial IV PRN (12:22)
[2020-01-25] MEDS ORDERED: Ondansetron HCl/PF 4 MG/2 ML Vial IVP PRN (12:22)
[2020-01-25] MEDS ORDERED: diphenhydrAMINE 50 MG/ML VIAL IM PRN (12:22)
[2020-01-25] MEDS ORDERED: Zolpidem Tartrate 5 MG TAB PO PRN (12:22)
[2020-01-25] MEDS ORDERED: fentaNYL Citrate/PF 2,000 MCG in Sodium Chloride 0.9% 60 ML IV PRN (12:22)
[2020-01-25] MEDS ORDERED: Communication Order-Pharmacy FS PRN (12:30)
[2020-01-25] MEDS ORDERED: Promethazine HCl 25 MG/ML VIAL ONE (12:35)
[2020-01-25] MEDS ORDERED: Ondansetron PF 4 MG/2 ML Vial IVP PRN (13:00)
[2020-01-25] MEDS ORDERED: hydrALAZINE 20 MG/ML VIAL SLOW IVP PRN (13:00)
[2020-01-25] MEDS ORDERED: Ondansetron PF 4 MG/2 ML Vial ONE (14:44)
[2020-01-25] MEDS ORDERED: Lidocaine 1% PF 5 ML VIAL ONE (14:44)
[2020-01-25] MEDS ORDERED: PROPOFOL 200 MG/20 ML VIAL ONE (14:44)
[2020-01-25] MEDS ORDERED: Dexamethasone 20 MG/5 ML VIAL ONE (14:44)
[2020-01-25] MEDS ORDERED: Glycopyrrolate 0.2 MG/ML 5 ML SYRINGE ONE (14:44)
[2020-01-25] MEDS ORDERED: Rocuronium Bromide 10 MG/ML (10ML VIAL) ONE (14:44)
[2020-01-25] MEDS ORDERED: Bupivacaine HCl 0.5%/Epinephrine 1:200,000/PF 30 ml Vial ONE (14:50)
[2020-01-25 15:44] VITALS: BMI 43.0
[2020-01-25] MEDS: D5 1/2 NS w/20 mEq KCL 1,000 ML IV SCH (16:15)
--- NOTE | 2020-01-25 18:08 | EKG ---
Test Reason : PREOP Blood Pressure : / mmHG Vent. Rate : 063 BPM Atrial Rate : 063 BPM P-R Int : 164 ms QRS Dur : 100 ms QT Int : 424 ms P-R-T Axes : 000 -02 039 degrees QTc Int : 433 ms Normal sinus rhythm Normal ECG When compared with ECG of 12-SEP-2019 03:37, (Unconfirmed) Sinus rhythm has replaced Atrial flutter Nonspecific T wave abnormality, improved in Inferior leads T wave inversion no longer evident in Anterolateral leads QT has shortened Confirmed by DR. Nayana BHANDARI ([id number]) on 01/25/2020 6:07:52 PM Referred By: POLLO Confirmed By:DR. Nayana BHANDARI
[2020-01-25] MEDS: cefOXitin Sodium/Dextrose,Iso 2 GM in Premix Bag 1 BAG IVPB SCH (18:09)
[2020-01-25] MEDS: Simethicone Chewable 80 MG TAB PO PRN (20:36)
[2020-01-25] MEDS: Famotidine/PF 20 mg/2ml Vial SLOW IVP SCH (20:37)
--- NOTE | 2020-01-26 00:40 | OP ---
DATE OF PROCEDURE: 01/25/2020 PREOPERATIVE DIAGNOSES: Colovesical fistula, chronic diverticulitis. POSTOPERATIVE DIAGNOSES: Colovesical fistula, chronic diverticulitis. PROCEDURES PERFORMED: 1. Open left colectomy with low pelvic anastomosis. 2. Mobilization of splenic flexure. ANESTHESIA: General. ESTIMATED BLOOD LOSS: 100 mL. COMPLICATIONS: None. FINDINGS: The bladder is checked with methylene blue and saline without evidence of leakage. DESCRIPTION OF PROCEDURE: The patient was taken to the operating room and laid supine on the operating room table. After general anesthetic was obtained, a Vera was placed and the patient was placed in lithotomy position. Her abdomen was prepped and draped in a sterile fashion. Left subcostal 5 mm Optiview trocar was placed in usual fashion. High-flow pneumoperitoneum was obtained. Right lower quadrant femoral port was placed as well. The patient had significant dense abdominal adhesions in her pelvis and decision was made to open. A midline incision was made and cautery was dissected down into the abdominal cavity. The posterior abdominal wall adhesions taken down very carefully using sharp dissection without injury. The left colon was mobilized along the white line of Toldt. The left ureter was found and excluded from the dissection and not injured. Dissection was taken down into the pelvis. The patient had an area of her sigmoid colon that was looped over and stuck to the posterior wall of the bladder. This was taken down very carefully using cautery and the location in the upper rectum, location for the anastomosis was found. A circumferential dissection of the rectum was performed and a contour stapler was fired across the rectum. The Impact LigaSure was then used to take the mesentery as the sigmoid colon was marched up out of the pelvis. Again, no injury to the ureter. The inferior mesenteric artery was taken near its base using the Impact LigaSure. The splenic flexure was then mobilized in the usual fashion using LigaSure and cautery. The patient had previous Senait Y, but the Senait Y limb went through her transverse colon. These mesentery was not injured during this portion of the procedure. The greater omentum was taken off the distal transverse colon, allowing it to reach down into the pelvis. Location was found proximally for staple line, this was in the distal transverse colon. 31 EEA was passed from the colotomy proximal with a sharp pin brought out on the mesenteric surface of the colon above. This colon was stapled off distal to this and this was the specimen that was sent to pathology. The upper colon was brought into the pelvis under no tension. The base of the EEA was brought up through the anus and sharp pin brought out on the anti-mesenteric surface of the colon below and they connected to the anvil from above and the anastomosis was performed by firing the stapler. Staple line was oversewn using silk sutures. There was initial air leak during air insufflation, but this went away after over-sew. There was no bleeding in the abdomen. All instrument counts, needle counts, lap counts were correct. The bladder was tested with 250 mL of methylene blue saline without evidence of leakage and the bladder was then decompressed. All instrument counts, needle counts, lap counts were correct. Midline fascia was closed using #1 PDS from the top and the bottom and tied in the middle. Subcutaneous tissues were irrigated and closed using 3-0 Vicryl, 4-0 Monocryl, and Dermabond. The patient was sent to Recovery in stable condition. All instrument counts, needle counts, lap counts were correct. Job ID: [id number]
[2020-01-26] MEDS: cefOXitin Sodium/Dextrose,Iso 2 GM in Premix Bag 1 BAG IVPB SCH (02:02)
[2020-01-26] MEDS: D5 1/2 NS w/20 mEq KCL 1,000 ML IV SCH ×2 (05:12→08:24)
[2020-01-26 05:50] LABS: #Basophils 0.1 thou/uL (0.0-0.2); #Lymphocytes 1.3 thou/uL (1.20-3.40); #Neutrophils 11.7 thou/uL (1.40-6.50); %Basophils 0.6 % (0.0-1.0); %Eosinophils 0.1 % (0.0-10.0); %Lymphocytes 9.3 % (21.0-51.0); %Monocytes 7.1 % (0.0-10.0); %Neutrophils 82.9 % (42.0-75.0); Hemoglobin 12.8 g/dL (12.0-16.0); Mean Corpuscular HGB CONC 33.3 g/dL (32.0-36.0); Mean Corpuscular Hemoglobin 31.3 pg (27.0-31.0); Mean Corpuscular Volume 93.9 fL (78.0-98.0); Mean Platelet Volume 8.8 fL (7.4-10.4); Platelet Count 225 thou/uL (130-400); RBC Distribution Width 13.1 % (11.5-14.5); Red Blood Cell (RBC) Count 4.09 mill/uL (4.20-5.40); White Blood Cell (WBC) Count 14.1 thou/uL (4.8-10.8)
[2020-01-26 06:32] LABS: Anion Gap 13 mmol/L (10-20); BUN (Urea Nitrogen) 12 mg/dL (9.8-20.1); Calc. Creatinine Clearance 106 mL/min (70-130); Calcium 9.1 mg/dL (7.8-10.44); Carbon Dioxide 25 mmol/L (23-31); Chloride 103 mmol/L (98-107); Estimated GFR-MDRD 57; Glucose 129 mg/dL (80-115); Potassium 3.9 mmol/L (3.5-5.1); Sodium 137 mmol/L (136-145)
--- NOTE | 2020-01-26 08:12 | PDOC.GSPN ---
Surgery Progress Note: Subj - Subjective Patient reports: had a bowel movement, tolerating liquids well, voiding w/o difficulty, blood in stool, having loose stools Narrative: Patient complains of some gas related abdominal pain. She has had multiple loose slightly bloody stools. Denies significant abdominal soreness. She has had one episode of nausea, but this resolved quickly. Denies any difficulty breathing, shortness of breath, cough, vomiting, fever. Surgery Progress Note: Obj - Vital signs Vital signs: Vital Signs - Most Recent Temp Pulse Resp BP Pulse Ox 97.6 F 88 16 139/90 95 01/26/20 04:31 01/26/20 04:31 01/26/20 04:31 01/26/20 04:01/26/20 04:42 - Physical Exam General: well developed, well nourished Cardiovascular: regular rate and rhythm Respiratory: clear to auscultation Abdomen: nondistended, appropriately tender, other (Bruising along incision line. No redness, swelling, or discharge from the incision site.) Psychiatric: memory intact, oriented to time, oriented to person, oriented to place, speech is normal Surgery Progress Note: Results - Labs Result Diagrams: 01/26/20 05:15 01/26/20 05:15 Lab results: Laboratory Results - last 24 hr 01/26/20 01/26/20 05:15 05:15 WBC 14.1 H RBC 4.09 L Hgb 12.8 Hct 38.4 MCV 93.9 MCH 31.3 H MCHC 33.3 RDW 13.1 Plt Count 225 MPV 8.8 Neutrophils % 82.9 H Lymphocytes % 9.3 L Monocytes % 7.1 Eosinophils % 0.1 Basophils % 0.6 Neutrophils # 11.7 H Lymphocytes # 1.3 Monocytes # 1.0 H Eosinophils # 0.0 Basophils # 0.1 Sodium 137 Potassium 3.9 Chloride 103 Carbon Dioxide 25 Anion Gap 13 BUN 12 Creatinine 0.98 Estimated GFR (MDRD) 57 Glucose 129 H Calcium 9.1 Surgery Progress Note: A/P - Problem (1) Vesicocolic fistula Current Visit: Yes Code(s): N32.1 - VESICOINTESTINAL FISTULA Status: Acute - Plan Plan: Patient has some gas pain, but she has been able to pass multiple loose slightly bloody stools. Pain is well controlled on current medications. She is using the incentive spirometry regularly and has been able to walk short distances. Tolerating liquids well. Addendum - Physician - Physician Attestation Date/Time: 01/26/20 1217 I personally performed or re-performed the physical examination and medical decision making. I have verified all student documentation or findings, including history, physical exam and/or medical decision making. POD 1 left colectomy -full liquid diet -TKO IVF -encouraged ambulation
[2020-01-26] MEDS: Amlodipine 5 MG TAB PO SCH (08:19)
[2020-01-26] MEDS: Lisinopril 20 MG TAB PO SCH (08:19)
[2020-01-26] MEDS: Metoprolol Tartrate 100 MG TAB PO SCH (08:20)
[2020-01-26] MEDS: Famotidine/PF 20 mg/2ml Vial SLOW IVP SCH ×2 (08:20→23:11)
[2020-01-26] MEDS ORDERED: traMADol HCl 50 MG TAB PO PRN (11:23)
[2020-01-26] MEDS ORDERED: Fentanyl 100 MCG/2 ML VIAL SLOW IVP PRN ×2 (11:23)
[2020-01-26] MEDS ORDERED: D5 1/2 NS w/20 mEq KCL 1,000 ML IV SCH (11:25)
[2020-01-26] MEDS: traMADol HCl 50 MG TAB PO PRN ×2 (15:27→21:28)
[2020-01-26] MEDS: Ondansetron PF 4 MG/2 ML Vial IVP PRN (15:28)
[2020-01-26] MEDS: Acetaminophen 325 MG TAB PO PRN (18:05)
[2020-01-26] MEDS ORDERED: Diabetic Tussin 200 MG/10 ML UDCUP PO PRN (22:10)
[2020-01-27] MEDS: Ondansetron PF 4 MG/2 ML Vial IVP PRN ×3 (01:20→18:21)
[2020-01-27] MEDS: traMADol HCl 50 MG TAB PO PRN ×3 (04:43→23:42)
[2020-01-27] MEDS: Amlodipine 5 MG TAB PO SCH (08:18)
[2020-01-27] MEDS: Famotidine/PF 20 mg/2ml Vial SLOW IVP SCH ×2 (08:19→20:13)
[2020-01-27] MEDS: Lisinopril 20 MG TAB PO SCH (08:19)
[2020-01-27] MEDS: Metoprolol Tartrate 100 MG TAB PO SCH (08:19)
[2020-01-27] MEDS: Acetaminophen 325 MG TAB PO PRN ×2 (08:19→19:51)
--- NOTE | 2020-01-27 08:30 | PRG ---
DATE OF SERVICE: 01/27/2020 SUBJECTIVE: Ms. Ziegler feels more bloated today. She is passing gas. She has had a few liquid bowel movements. She is belching some. She is ambulating. Urine output overnight was good. OBJECTIVE: VITAL SIGNS: She is afebrile. Vital signs are stable. ABDOMEN: More distended today. She has occasional bowel sounds. Midline incision is healing well. ASSESSMENT: Postop day 2, left colectomy for colovesical fistula. PLAN: Vera discontinued this morning. Encouraged ambulation. Keep on full liquids for now. Job ID: [id number]
[2020-01-27 22:12] LABS: Bilirubin Negative (Negative); Blood, Urine 1+ (Negative); Clarity Clear (Clear); Glucose, Urine (Dipstick) Normal (Negative); Leukocyte 500 Leu/uL (Negative); Nitrite Negative (Negative); Protein, Urine (Dipstick) Negative (Neg-Trace); Squamous Epithelial 0-3 HPF (0-3); Urobilinogen Normal mg/dL (Less than 2); WBC/HPF Greater than 50 HPF (0-3)
[2020-01-27 22:13] LABS: Bacteria/HPF 1+ HPF (None Seen)
[2020-01-27 22:14] LABS: Urine Culture Reflex Yes Yes
[2020-01-28] MEDS: Simethicone Chewable 80 MG TAB PO PRN ×2 (05:07→23:31)
[2020-01-28] MEDS: Acetaminophen 325 MG TAB PO PRN ×2 (05:07→13:25)
[2020-01-28 05:15] LABS: #Eosinphils 0.2 thou/uL (0.0-0.7); #Lymphocytes 1.7 thou/uL (1.20-3.40); #Monocytes 0.6 thou/uL (0.11-0.59); #Neutrophils 6.6 thou/uL (1.40-6.50); %Basophils 0.3 % (0.0-1.0); %Eosinophils 1.7 % (0.0-10.0); %Lymphocytes 18.8 % (21.0-51.0); %Neutrophils 72.2 % (42.0-75.0); Hemoglobin 11.9 g/dL (12.0-16.0); Mean Corpuscular HGB CONC 33.6 g/dL (32.0-36.0); Mean Corpuscular Hemoglobin 31.4 pg (27.0-31.0); Mean Corpuscular Volume 93.5 fL (78.0-98.0); Mean Platelet Volume 8.7 fL (7.4-10.4); Platelet Count 206 thou/uL (130-400); RBC Distribution Width 12.8 % (11.5-14.5); Red Blood Cell (RBC) Count 3.78 mill/uL (4.20-5.40); White Blood Cell (WBC) Count 9.1 thou/uL (4.8-10.8)
[2020-01-28 05:25] LABS: Anion Gap 12 mmol/L (10-20); BUN (Urea Nitrogen) 8 mg/dL (9.8-20.1); Calc. Creatinine Clearance 136 mL/min (70-130); Calcium 8.9 mg/dL (7.8-10.44); Carbon Dioxide 26 mmol/L (23-31); Chloride 101 mmol/L (98-107); Estimated GFR-MDRD 77; Glucose 89 mg/dL (80-115); Potassium 3.3 mmol/L (3.5-5.1); Sodium 136 mmol/L (136-145)
--- NOTE | 2020-01-28 08:04 | PRG ---
DATE OF SERVICE: 01/28/2020 SUBJECTIVE: Ms. Ziegler is feeling bloated today, but no real nausea. She did not vomit. She is still passing gas. She is still walking, complaining of some urgency to urinate and some feeling like she still has to go. Her bladder scan last night revealed no significant retention. OBJECTIVE: VITAL SIGNS: She is afebrile, and her vital signs are stable. ABDOMEN: Soft and minimally distended, but she has active bowel sounds. Her midline wound is healing well. LABORATORY DATA: White cell count is 9, hemoglobin 11.9, platelet count is 206, normal differential. Creatinine 0.76. ASSESSMENT: Postop day 3, left colectomy. PLAN: Continue full liquids for now. Encouraged ambulation and incentive spirometer. Her UA shows pretty significant contamination still. This is likely from her history of colovesical fistula, this is not an acute UTI. However, we will cover her with Levaquin for now. Job ID: [id number]
[2020-01-28] MEDS: Lisinopril 20 MG TAB PO SCH (09:09)
[2020-01-28] MEDS: Amlodipine 5 MG TAB PO SCH (09:09)
[2020-01-28] MEDS: traMADol HCl 50 MG TAB PO PRN ×2 (09:10→18:14)
[2020-01-28] MEDS: Metoprolol Tartrate 100 MG TAB PO SCH (09:10)
[2020-01-28] MEDS: Famotidine/PF 20 mg/2ml Vial SLOW IVP SCH ×2 (09:11→21:11)
[2020-01-28] MEDS ORDERED: Ondansetron ODT 4 MG TAB PO PRN (16:37)
[2020-01-29] MEDS: traMADol HCl 50 MG TAB PO PRN ×4 (02:26→18:21)
[2020-01-29] MEDS: Famotidine/PF 20 mg/2ml Vial SLOW IVP SCH ×3 (07:43→20:01)
[2020-01-29] MEDS: Lisinopril 20 MG TAB PO SCH (07:43)
[2020-01-29] MEDS: Metoprolol Tartrate 100 MG TAB PO SCH (07:43)
[2020-01-29] MEDS: Amlodipine 5 MG TAB PO SCH (07:43)
--- NOTE | 2020-01-29 17:43 | PRG ---
DATE OF SERVICE: 01/29/2020 SUBJECTIVE: Ms. Ziegler feels better today. She is hungry. She is passing gas, has been up and walking. OBJECTIVE: VITAL SIGNS: She is afebrile and her vital signs are stable. ABDOMEN: Her abdominal wound is healing well. There is some bruising and ecchymoses, but no infection. ASSESSMENT: Postoperative day 4, left colectomy. PLAN: Advance to GI soft diet. I suspect she will be ready for discharge tomorrow. Job ID: [id number]
[2020-01-29] MEDS: Acetaminophen 325 MG TAB PO PRN (18:22)
[2020-01-29] MEDS: Simethicone Chewable 80 MG TAB PO PRN (19:59)
[2020-01-30] MEDS: Acetaminophen 325 MG TAB PO PRN ×3 (01:05→14:00)
[2020-01-30] MEDS: traMADol HCl 50 MG TAB PO PRN ×3 (01:05→14:01)
[2020-01-30] MEDS ORDERED: Potassium Chloride 10 MEQ TAB PO SCH (08:00)
[2020-01-30] MEDS: Amlodipine 5 MG TAB PO SCH (09:24)
[2020-01-30] MEDS: Metoprolol Tartrate 100 MG TAB PO SCH (09:25)
[2020-01-30] MEDS: Lisinopril 20 MG TAB PO SCH (09:25)
[2020-01-30] MEDS: Famotidine/PF 20 mg/2ml Vial SLOW IVP SCH (09:26)
[2020-01-30 15:28] VITALS: BP 107/74; TEMP 98.6
== END 2020-01-30 16:15 | disposition home or self-care (01) | DRG 982 ==
LOC: EDSTATUS 11:00 → SURG A 01-25 07:22 → SJJU 01-25 15:00
PROVIDERS: ADMIT Surgery; ATTEND Surgery
PROC: 0DBG0ZZ Excision of Left Large Intestine, Open Approach (ICD-10-PCS; principal; 2020-01-25)
DX: N32.1 Vesicointestinal fistula (principal); K57.32 Diverticulitis of large intestine without perforation or abscess without bleeding; M19.90 Unspecified osteoarthritis, unspecified site; Z79.899 Other long term (current) drug therapy; Z88.5 Allergy status to narcotic agent; Z88.2 Allergy status to sulfonamides; Z87.891 Personal history of nicotine dependence
CPT/HCPCS: 36415; 36416; 80048; 81001; 83036; 85025; 87086; 87635; 88307; 93005; 93010; J0171; J0670; J0694; J1100; J1956; J2001; J2250; J2405; J2550; J2704; J3010; J3480; Q0162; Q9968; S0028; U0003

== ENCOUNTER 2020-02-20 14:29 | Outpatient (CLI) | payer OTHER ==
[2020-02-21 13:45] LABS: SARS-CoV-2 MS2 Positive; SARS-CoV-2 N Gene Negative; SARS-CoV-2 S Gene Negative; SARS-CoV-2 orf1ab Negative
== END 2020-02-20 14:30 | disposition home or self-care (01) ==
LOC: LABBT 14:29
PROVIDERS: ATTEND Surgery
DX: Z01.812 Encounter for preprocedural laboratory examination (principal); Z11.59 Encounter for screening for other viral diseases; T81.89XA Other complications of procedures, not elsewhere classified, initial encounter
CPT/HCPCS: 87635; U0003

== ENCOUNTER 2020-02-23 09:39 | Inpatient (IN) | payer OTHER ==
[2020-02-21 09:37] VITALS: BMI 36.6
[2020-02-23] MEDS ORDERED: SUGAMMADEX SODIUM 200 MG/2 ML VIAL ONE (10:03)
[2020-02-23] MEDS ORDERED: Fentanyl 100 MCG/2 ML VIAL ONE ×4 (10:03→13:44)
[2020-02-23] MEDS ORDERED: Rocuronium Bromide 10 MG/ML (10ML VIAL) ONE (10:14)
[2020-02-23] MEDS ORDERED: Dexamethasone 20 MG/5 ML VIAL ONE (10:14)
[2020-02-23] MEDS ORDERED: Ondansetron PF 4 MG/2 ML Vial ONE (10:14)
[2020-02-23] MEDS ORDERED: PROPOFOL 200 MG/20 ML VIAL ONE (10:14)
[2020-02-23] MEDS ORDERED: Lidocaine 1% PF 5 ML VIAL ONE (10:14)
[2020-02-23 12:06] LABS: Anion Gap 15 mmol/L (10-20); BUN (Urea Nitrogen) 13 mg/dL (9.8-20.1); Calc. Creatinine Clearance 114 mL/min (70-130); Calcium 9.4 mg/dL (7.8-10.44); Carbon Dioxide 25 mmol/L (23-31); Chloride 105 mmol/L (98-107); Estimated GFR-MDRD 76; Glucose 103 mg/dL (80-115); Potassium 3.6 mmol/L (3.5-5.1); Sodium 141 mmol/L (136-145)
[2020-02-23] MEDS ORDERED: Ondansetron PF 4 MG/2 ML Vial IVP PRN (15:21)
[2020-02-23] MEDS ORDERED: hydrALAZINE 20 MG/ML VIAL SLOW IVP PRN (15:21)
[2020-02-23] MEDS ORDERED: Promethazine HCl 25 MG/ML VIAL IM PRN (15:21)
[2020-02-23] MEDS: Morphine 4 MG/ML VIAL SLOW IVP PRN ×3 (16:28→22:14)
--- NOTE | 2020-02-23 17:48 | HP ---
CHIEF COMPLAINT: Wound drainage. HISTORY OF PRESENT ILLNESS: This is a 64-year-old female who is 3 weeks status post left colectomy for colovesicular fistula. Postoperative course has been complicated by wound drainage. She has had a couple areas of her midline wound opened and packed with iodoform gauze. In my absence last week, Dr. Chacon opened the lower area. She has developed a large fluctuant indurated area just to her left of midline. There is some skin breakdown in this area. None of the open tunnels communicate with this area. This is causing localized pain. No fever or chills. Her bowel movements are regular and she is tolerating a regular diet. This area is painful, described as 8/10 and sharp. PAST MEDICAL HISTORY: Includes hypertension. PAST SURGICAL HISTORY: Above. MEDICATIONS AT HOME: Include: 1. Metoprolol. 2. Lisinopril. 3. Hydrochlorothiazide. 4. B12. 5. Amlodipine. 6. Aspirin. ALLERGIES: CODEINE, PEANUTS, AND SULFA. SOCIAL HISTORY: No smoking, alcohol, or other drugs. REVIEW OF SYSTEMS: Ten-system review of systems is otherwise negative unless described above. PHYSICAL EXAMINATION: HEENT: Sclerae are anicteric. Oropharynx clear. NECK: No lymphadenopathy. CHEST: Clear. HEART: Regular rate. ABDOMEN: Soft. Induration and purulent drainage to the left of her wound draining to the midline. No obvious crepitants or bulla formation. LABORATORY DATA: Sodium 141, potassium 3.6, and creatinine 0.77. ASSESSMENT: Postoperative wound infection, status post colectomy and primary anastomosis for colovesical fistula. PLAN: We will wash this wound out in the operating room, likely place VAC. She will probably need to stay in the hospital for a few days. We will continue her hypertensive medications postoperative. Job ID: [id number]
--- NOTE | 2020-02-23 17:49 | OP ---
DATE OF PROCEDURE: 02/23/2020 PREOPERATIVE DIAGNOSIS: Wound infection, postoperative colectomy. POSTOPERATIVE DIAGNOSIS: Wound infection, postoperative colectomy. PROCEDURES PERFORMED: 1. Abdominal wound washout. 2. Placement of wound VAC. ANESTHESIA: General. ESTIMATED BLOOD LOSS: Minimal. COMPLICATIONS: None. SPECIMENS: Cultures taken for anaerobes and aerobes. DESCRIPTION OF PROCEDURE: The patient was taken to the operating room and laid supine on the operating room table. After general anesthetic was obtained, a Vera was placed. Her abdomen was prepped and draped in a sterile fashion. The open wounds were all communicated to a deep pocket. Just to the left of midline, there was a larger pocket of mostly fat necrosis. No significant purulence. The wounds were all washed out and a wound VAC was placed in the usual fashion. The patient was sent to Recovery in stable condition. All instrument counts, needle counts, and lap counts were correct. Job ID: [id number]
[2020-02-23] MEDS: Famotidine/PF 20 mg/2ml Vial SLOW IVP SCH (20:33)
[2020-02-23] MEDS: Enoxaparin Sodium 40 MG/0.4 ML SYRINGE SC SCH (20:33)
[2020-02-23] MEDS: Famotidine 20 MG TAB PO SCH (22:25)
[2020-02-24] MEDS: Morphine 4 MG/ML VIAL SLOW IVP PRN ×3 (01:30→20:42)
[2020-02-24 05:43] LABS: #Lymphocytes 1.4 thou/uL (1.20-3.40); #Monocytes 0.4 thou/uL (0.11-0.59); #Neutrophils 6.3 thou/uL (1.40-6.50); %Basophils 0.1 % (0.0-1.0); %Eosinophils 0.1 % (0.0-10.0); %Lymphocytes 17.3 % (21.0-51.0); %Monocytes 5.2 % (0.0-10.0); %Neutrophils 77.3 % (42.0-75.0); Hemoglobin 11.5 g/dL (12.0-16.0); Mean Corpuscular HGB CONC 32.5 g/dL (32.0-36.0); Mean Corpuscular Hemoglobin 31.4 pg (27.0-31.0); Mean Corpuscular Volume 96.7 fL (78.0-98.0); Mean Platelet Volume 7.9 fL (7.4-10.4); Platelet Count 398 thou/uL (130-400); RBC Distribution Width 12.7 % (11.5-14.5); Red Blood Cell (RBC) Count 3.66 mill/uL (4.20-5.40); White Blood Cell (WBC) Count 8.2 thou/uL (4.8-10.8)
[2020-02-24 06:04] LABS: Anion Gap 12 mmol/L (10-20); BUN (Urea Nitrogen) 14 mg/dL (9.8-20.1); Calc. Creatinine Clearance 122 mL/min (70-130); Calcium 9.3 mg/dL (7.8-10.44); Carbon Dioxide 26 mmol/L (23-31); Chloride 106 mmol/L (98-107); Estimated GFR-MDRD 82; Glucose 113 mg/dL (80-115); Potassium 4.1 mmol/L (3.5-5.1); Sodium 140 mmol/L (136-145)
[2020-02-24] MEDS: Aspirin 81 mg Enteric Coated Tablet PO SCH (09:32)
[2020-02-24] MEDS: Potassium Chloride 10 MEQ TAB PO SCH (09:32)
[2020-02-24] MEDS: Lactinex Tablet PO SCH (09:33)
[2020-02-24] MEDS: Hydrochlorothiazide 25 MG TAB PO SCH (09:33)
[2020-02-24] MEDS: Amlodipine 10 MG TAB PO SCH (09:33)
[2020-02-24] MEDS: Lisinopril 20 MG TAB PO SCH (09:33)
[2020-02-24] MEDS: Multivit, Therapeutic 1 TAB PO SCH (09:34)
[2020-02-24] MEDS: Metoprolol Tartrate 100 MG TAB PO SCH (09:34)
[2020-02-24] MEDS: Famotidine 20 MG TAB PO SCH ×2 (09:34→20:57)
[2020-02-24] MEDS: Famotidine/PF 20 mg/2ml Vial SLOW IVP SCH ×2 (09:34→20:43)
[2020-02-24] MEDS: Cyanocobalamin (Vitamin B-12) 1,000 MCG TAB PO SCH (09:34)
[2020-02-24] MEDS: HYDROcodone/Acetaminophen 7.5/325 mg Tablet PO PRN ×2 (09:40→14:53)
--- NOTE | 2020-02-24 10:50 | PRG ---
DATE OF SERVICE: 02/24/2020 SUBJECTIVE: Ms. Ziegler is doing well. Her pain is controlled. She is able to void without difficulty. Her diarrhea has improved. She is afebrile. OBJECTIVE: Vital signs are stable. Abdominal wound VAC is in place. LABORATORY DATA: C. diff was negative. ASSESSMENT: Postoperative day 1, abdominal washout, VAC placement. PLAN: 1. Encouraged ambulation. 2. Continue Levaquin p.o. 3. Await culture results. 4. Diet as tolerated. 5. Home when home VAC approved. Job ID: [id number]
[2020-02-24] MEDS: Sodium Chloride 0.9% 1,000 ML IV SCH (15:24)
[2020-02-24] MEDS: Morphine 2 MG/ML VIAL SLOW IVP PRN (17:34)
[2020-02-24] MEDS: Enoxaparin Sodium 40 MG/0.4 ML SYRINGE SC SCH (20:43)
[2020-02-25] MEDS: Morphine 4 MG/ML VIAL SLOW IVP PRN ×2 (00:09→03:22)
[2020-02-25] MEDS: HYDROcodone/Acetaminophen 7.5/325 mg Tablet PO PRN ×5 (06:07→23:29)
[2020-02-25] MEDS: Multivit, Therapeutic 1 TAB PO SCH (09:01)
[2020-02-25] MEDS: Lisinopril 20 MG TAB PO SCH (09:01)
[2020-02-25] MEDS: Metoprolol Tartrate 100 MG TAB PO SCH (09:01)
[2020-02-25] MEDS: Lactinex Tablet PO SCH (09:01)
[2020-02-25] MEDS: Amlodipine 10 MG TAB PO SCH (09:02)
[2020-02-25] MEDS: Aspirin 81 mg Enteric Coated Tablet PO SCH (09:02)
[2020-02-25] MEDS: Cyanocobalamin (Vitamin B-12) 1,000 MCG TAB PO SCH (09:02)
[2020-02-25] MEDS: Hydrochlorothiazide 25 MG TAB PO SCH (09:03)
[2020-02-25] MEDS: Potassium Chloride 10 MEQ TAB PO SCH (09:04)
[2020-02-25] MEDS: Famotidine 20 MG TAB PO SCH ×2 (09:04→20:58)
[2020-02-25 12:26] LABS: Bacteria/HPF None Seen HPF (None Seen); Bilirubin Negative (Negative); Blood, Urine Negative (Negative); Clarity Clear (Clear); Glucose, Urine (Dipstick) Normal (Negative); Ketone, Urine Negative (Negative); Leukocyte 250 Leu/uL (Negative); Nitrite Negative (Negative); Protein, Urine (Dipstick) Negative (Neg-Trace); RBC/HPF 0-3 HPF (0-3); Squamous Epithelial 0-3 HPF (0-3); Urobilinogen Normal mg/dL (Less than 2)
[2020-02-25] MEDS ORDERED: Doxycycline 100 MG CAP PO SCH (12:45)
--- NOTE | 2020-02-25 15:33 | PRG ---
DATE OF SERVICE: 02/25/2020 SUBJECTIVE: The patient was seen during morning rounds, awake, alert, in no distress. The patient's pain is well controlled at this time. The patient is voiding, but does report some dysuria. The patient states she has had this dysuria before with her hydrochlorothiazide which was started today, although she also feels that she may have a urine infection. The patient had no overnight events. The patient has been afebrile. The patient's abdominal wound VAC is working appropriately. PHYSICAL EXAMINATION: VITAL SIGNS: Temperature 98.2, pulse 73, respirations 16, SpO2 of 96% on room air, blood pressure 121/67. GENERAL: Middle-aged female, awake, alert, no distress. RESPIRATORY: Equal chest rise and fall, respirations are even and nonlabored. ABDOMEN: Soft, nontender, nondistended, wound VAC in place. LABORATORY DATA: Urinalysis, positive for leukocyte esterase. Positive wbc's. No bacteria. Positive for hyaline cast. Pending cultures. Negative protein. Negative nitrates. ASSESSMENT: Postop day #2 status post abdominal washout and VAC placement. PLAN: Continue to encourage ambulation. Continue Levaquin p.o. Diet as tolerated. Job ID: [id number]
[2020-02-25] MEDS: Sodium Chloride 0.9% 1,000 ML IV SCH (20:57)
[2020-02-25] MEDS: Doxycycline 100 MG CAP PO SCH (20:57)
[2020-02-25] MEDS: Enoxaparin Sodium 40 MG/0.4 ML SYRINGE SC SCH (20:57)
[2020-02-26] MEDS: HYDROcodone/Acetaminophen 7.5/325 mg Tablet PO PRN ×4 (04:07→21:03)
[2020-02-26] MEDS: Multivit, Therapeutic 1 TAB PO SCH (08:12)
[2020-02-26] MEDS: Cyanocobalamin (Vitamin B-12) 1,000 MCG TAB PO SCH (08:12)
[2020-02-26] MEDS: Potassium Chloride 10 MEQ TAB PO SCH (08:12)
[2020-02-26] MEDS: Famotidine 20 MG TAB PO SCH ×2 (08:13→21:04)
[2020-02-26] MEDS: Doxycycline 100 MG CAP PO SCH ×2 (08:13→21:04)
[2020-02-26] MEDS: Hydrochlorothiazide 25 MG TAB PO SCH (08:13)
[2020-02-26] MEDS: Aspirin 81 mg Enteric Coated Tablet PO SCH (08:13)
[2020-02-26] MEDS: Lactinex Tablet PO SCH (08:13)
[2020-02-26] MEDS: Amlodipine 10 MG TAB PO SCH (08:13)
[2020-02-26] MEDS: Metoprolol Tartrate 100 MG TAB PO SCH (08:14)
[2020-02-26] MEDS: Lisinopril 20 MG TAB PO SCH (08:15)
[2020-02-26] MEDS: Morphine 2 MG/ML VIAL SLOW IVP PRN (09:17)
[2020-02-26] MEDS ORDERED: Ibuprofen 600 MG TAB PO PRN (09:46)
[2020-02-26] MEDS ORDERED: Morphine 2 MG/ML VIAL SLOW IVP PRN (09:48)
[2020-02-26] MEDS ORDERED: HYDROcodone/Acetaminophen 7.5/325 mg Tablet PO PRN (09:48)
[2020-02-26] MEDS ORDERED: Morphine 4 MG/ML VIAL SLOW IVP PRN (09:48)
[2020-02-26] MEDS: Enoxaparin Sodium 40 MG/0.4 ML SYRINGE SC SCH (21:04)
--- NOTE | 2020-02-26 22:46 | PDOC.GSPN ---
Surgery Progress Note: Subj - Subjective Narrative: c,o pain with dressing changes Surgery Progress Note: Obj - Vital signs Vital signs: Vital Signs - Most Recent Temp Pulse Resp BP Pulse Ox 98.6 F 81 18 149/73 H 95 02/26/20 19:30 02/26/20 19:30 02/26/20 19:30 02/26/20 19:30 02/26/20 19:30 - Physical Exam General: no distress Wound: wound vac (good granulation seen on vac change) Surgery Progress Note: Results - Labs Result Diagrams: 02/24/20 05:27 02/24/20 05:27 Surgery Progress Note: A/P - Problem (1) Vesicocolic fistula Current Visit: No Code(s): N32.1 - VESICOINTESTINAL FISTULA Status: Acute - Plan Plan: wound infection with wound vac -home when home vac approved
[2020-02-27] MEDS: HYDROcodone/Acetaminophen 7.5/325 mg Tablet PO PRN ×4 (03:06→21:45)
[2020-02-27] MEDS: Sodium Chloride 0.9% 1,000 ML IV SCH (03:07)
[2020-02-27] MEDS: Metoprolol Tartrate 100 MG TAB PO SCH (08:39)
[2020-02-27] MEDS: Cyanocobalamin (Vitamin B-12) 1,000 MCG TAB PO SCH (08:39)
[2020-02-27] MEDS: Potassium Chloride 10 MEQ TAB PO SCH (08:39)
[2020-02-27] MEDS: Famotidine 20 MG TAB PO SCH ×2 (08:39→20:45)
[2020-02-27] MEDS: Doxycycline 100 MG CAP PO SCH ×2 (08:39→20:45)
[2020-02-27] MEDS: Multivit, Therapeutic 1 TAB PO SCH (08:39)
[2020-02-27] MEDS: Lactinex Tablet PO SCH (08:39)
[2020-02-27] MEDS: Aspirin 81 mg Enteric Coated Tablet PO SCH (08:39)
[2020-02-27] MEDS: Hydrochlorothiazide 25 MG TAB PO SCH (08:39)
[2020-02-27] MEDS: Amlodipine 10 MG TAB PO SCH (08:40)
[2020-02-27] MEDS: Lisinopril 20 MG TAB PO SCH (08:40)
--- NOTE | 2020-02-27 11:37 | PRG ---
DATE OF SERVICE: 02/27/2020 Ms. Ziegler is doing better today. Her pain at the site is improved. She is having no nausea or vomiting. Her liquid stools are better. She is ambulatory. She is afebrile. Vital signs are stable. Her abdominal wound VAC is in place. Final cultures show MRSA and Enterococcus. ASSESSMENT: Postop wound infection, now with wound VAC, improved. PLAN: Let her try regular diet today. Continue to mobilize. Await for home VAC to be approved. I suspect she will be ready for discharge tomorrow. Job ID: [id number]
[2020-02-27] MEDS: Enoxaparin Sodium 40 MG/0.4 ML SYRINGE SC SCH (20:45)
[2020-02-28] MEDS: HYDROcodone/Acetaminophen 7.5/325 mg Tablet PO PRN ×2 (03:34→13:39)
[2020-02-28] MEDS: Lactinex Tablet PO SCH (08:53)
[2020-02-28] MEDS: Multivit, Therapeutic 1 TAB PO SCH (08:53)
[2020-02-28] MEDS: Lisinopril 20 MG TAB PO SCH (08:53)
[2020-02-28] MEDS: Metoprolol Tartrate 100 MG TAB PO SCH (08:53)
[2020-02-28] MEDS: Doxycycline 100 MG CAP PO SCH (08:53)
[2020-02-28] MEDS: Aspirin 81 mg Enteric Coated Tablet PO SCH (08:53)
[2020-02-28] MEDS: Amlodipine 10 MG TAB PO SCH (08:53)
[2020-02-28] MEDS: Hydrochlorothiazide 25 MG TAB PO SCH (08:53)
[2020-02-28] MEDS: Cyanocobalamin (Vitamin B-12) 1,000 MCG TAB PO SCH (08:53)
[2020-02-28] MEDS: Famotidine 20 MG TAB PO SCH (08:53)
[2020-02-28] MEDS: Potassium Chloride 10 MEQ TAB PO SCH (08:53)
--- NOTE | 2020-02-28 10:06 | PDOC.BPN ---
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 Currently, she is feeling pain at the wound site, rating it a 10/10, but assures that this happens whenever they perform a wound vac change. Vital signs are unremarkable. Wound VAC has just been changed and is in place. Yesterday, she was placed on a regular diet, and is currently tolerating it despite not having much of an appetite. She hasn't been mobilizing around the floor but has been going to the bathroom as needed. She denies nausea, vomiting, and fever. Upon physical exam, Lung breath sounds are heard upon auscultation. Heart sounds are regular, no murmurs. Wound site is still mildy draining, but have been changed by the wound care team. Potential plan is to discharge today with home health care. Vitals: Temperature 97..98F pulse 72 resp rate 16 O2 sat 99 BP 105/64 (down from 152/80)
[2020-02-28 11:49] VITALS: BP 124/74; TEMP 98.2
--- NOTE | 2020-02-29 08:24 | PQF ---
Dear : Jerry Luke Date : 02/29/20 Please exercise your independent, professional judgment in responding to the clarification form. Clinical indicators are provided on the bottom of this form for your review Can you please further clarify the type and depth of procedure being performed? Please check appropriate box(es): [ X ] Non-excisional Debridement: (Removal by flushing, brushing, chemical, or washing) Depth / layer: (deepest layer of debridement): [ X ] Skin [ X ] Subcutaneous [ ] Fascia [ ] Muscle [ ] Tendon [ ] Bone [ ] Incision and Drainage only (No Debridement): Depth: [ ] Skin [ ] Subcutaneous [ ] Fascia [ ] Muscle [ ] Tendon [ ] Bone [ ] Other procedure diagnosis please specify [ ] Unable to determine Physician Signature: Date/Time: For continuity of documentation, please document condition throughout progress notes and discharge summary. Thank You. To be completed by CDI/Coding staff for physician review: Present Clinical Indicators - Signs / Symptoms / Labs Results and Location in Medical Record [ x ] abdominal wound washout OP Report 02/22 pg.1 [ x ] the open wounds were all communicated to a deep pocket OP Report 02/22 pg.1 [ x ] there was a larger pocket of mostly fat necrosis OP Report 02/22 pg.1 [ x ] The wounds were all washed out and a wound VAC was placed in the usual fashion OP Report 02/22 pg.1 Present Risk Factors Results and Location in Medical Record [ x ] Wound infection, post operative colectomy H and P pg.1 [ x ] s/p left colectomy PN [ x ] HTN H and P pg.1 [ x ] 64 years old female HP 02/22 [ x ] Morbid obesity Anesthesia 02/22 [ x ] Former Smoker Anesthesia 02/22 Present Treatments Results and Location in Medical Record [ x ] IV Fluids MAR [ x ] Ancef 2gm IV MAR [ x ] Levaquin 500mg PO MAR [ x ] Abdominal Washout OP Report 02/22 pg.1 [facility]S/Anch[facility] Signature: David Juarez Phone #: [phone] Date: 02/29/20 This is a permanent part of the Medical Record [facility]
== END 2020-02-28 16:45 | disposition home or self-care (01) | DRG 857 ==
LOC: SDC 09:39 → OBSVTOIN 15:27 → SURG A 15:27
PROVIDERS: ADMIT Surgery; ATTEND Surgery
PROC: 0JD80ZZ Extraction of Abdomen Subcutaneous Tissue and Fascia, Open Approach (ICD-10-PCS; principal; 2020-02-23)
DX: T81.49XA Infection following a procedure, other surgical site, initial encounter (principal); I96 Gangrene, not elsewhere classified; I10 Essential (primary) hypertension; E78.5 Hyperlipidemia, unspecified; J30.2 Other seasonal allergic rhinitis; B95.62 Methicillin resistant Staphylococcus aureus infection as the cause of diseases classified elsewhere; B95.2 Enterococcus as the cause of diseases classified elsewhere; Y83.8 Other surgical procedures as the cause of abnormal reaction of the patient, or of later complication, without mention of misadventure at the time of the procedure; E66.01 Morbid (severe) obesity due to excess calories; Z88.5 Allergy status to narcotic agent; Z88.2 Allergy status to sulfonamides; Z91.010 Allergy to peanuts; Z79.899 Other long term (current) drug therapy; Z90.49 Acquired absence of other specified parts of digestive tract; Z87.891 Personal history of nicotine dependence; Z68.36 Body mass index [BMI] 36.0-36.9, adult
CPT/HCPCS: 36415; 80048; 81003; 81015; 85025; 87070; 87076; 87077; 87086; 87186; 87205; 87324; 87449; 96361; 96372; 96374; 96375; 96376; G0378; J0690; J1100; J1650; J2270; J2405; J2704; J3010; S0028

== ENCOUNTER 2022-04-23 10:50 | Inpatient (IN) | payer MEDICARE ==
[2022-04-23] MEDS ORDERED: Nitroglycerin 2% Ointment 1 INCH/1 GM Packet TOP SCH (13:15)
[2022-04-23] MEDS ORDERED: Ondansetron PF 4 MG/2 ML Vial IVP PRN (13:33)
[2022-04-23] MEDS ORDERED: Nitroglycerin 0.4 MG TAB (25 Tab Bottle) SL PRN (13:34)
[2022-04-23 14:49] VITALS: BMI 42.4
[2022-04-23] MEDS ORDERED: Communication Order-Pharmacy FS PRN (14:49)
[2022-04-23 15:20] LABS: #Basophils 0.1 thou/uL (0.0-0.2); #Eosinphils 0.1 thou/uL (0.0-0.7); #Lymphocytes 2.4 thou/uL (1.20-3.40); #Monocytes 0.4 thou/uL (0.11-0.59); #Neutrophils 3.5 thou/uL (1.40-6.50); %Basophils 0.8 % (0.0-1.0); %Lymphocytes 37.1 % (21.0-51.0); %Monocytes 5.4 % (0.0-10.0); %Neutrophils 55.6 % (42.0-75.0); Hemoglobin 13.2 g/dL (12.0-16.0); Mean Corpuscular HGB CONC 33.6 g/dL (32.0-36.0); Mean Corpuscular Hemoglobin 32.4 pg (27.0-31.0); Mean Corpuscular Volume 96.4 fL (78.0-98.0); Mean Platelet Volume 8.4 fL (7.4-10.4); Platelet Count 209 thou/uL (130-400); RBC Distribution Width 12.3 % (11.5-14.5); Red Blood Cell (RBC) Count 4.07 mill/uL (4.20-5.40); White Blood Cell (WBC) Count 6.3 thou/uL (4.8-10.8)
[2022-04-23] MEDS ORDERED: Fentanyl 100 MCG/2 ML VIAL ONE (15:23)
[2022-04-23] MEDS ORDERED: Midazolam HCl 2 mg/2 ml Vial ONE (15:24)
[2022-04-23] MEDS ORDERED: Fentanyl 100 MCG/2 ML VIAL SLOW IVP SCH (15:30)
[2022-04-23] MEDS ORDERED: Midazolam HCl 2 mg/2 ml Vial SLOW IVP SCH (15:30)
[2022-04-23 15:31] LABS: INR-International Normal Ratio 1.1; PTT 29.9 sec (22.9-36.1); Prothrombin Time 13.9 sec (12.0-14.7)
[2022-04-23 15:48] LABS: SARS-CoV-2 NAA Rapid Test Not Detected (NotDetected)
[2022-04-23] MEDS: Carvedilol 6.25 MG TAB PO SCH (17:20)
[2022-04-23] MEDS ORDERED: Rosuvastatin 20 MG TAB PO SCH (21:00)
[2022-04-23] MEDS: Nitroglycerin 2% Ointment 1 INCH/1 GM Packet TOP SCH (21:04)
[2022-04-24] MEDS: Carvedilol 6.25 MG TAB PO SCH (05:03)
[2022-04-24] MEDS: Nitroglycerin 2% Ointment 1 INCH/1 GM Packet TOP SCH (05:04)
[2022-04-24] MEDS ORDERED: Lisinopril 20 MG TAB PO SCH (09:00)
[2022-04-24] MEDS ORDERED: Aspirin 81 mg Enteric Coated Tablet PO SCH (09:00)
[2022-04-24] MEDS ORDERED: Midazolam HCl 2 mg/2 ml Vial ONE (10:22)
[2022-04-24] MEDS ORDERED: Albumin 5% 500 ML ONE (10:24)
[2022-04-24 10:39] LABS: Anion Gap 14 mmol/L (10-20); BUN (Urea Nitrogen) 15 mg/dL (9.8-20.1); Calc. Creatinine Clearance 122 mL/min (70-130); Calcium 9.4 mg/dL (7.8-10.44); Carbon Dioxide 25 mmol/L (23-31); Chloride 106 mmol/L (98-107); Estimated GFR 81; Glucose 105 mg/dL (80-115); Potassium 3.8 mmol/L (3.5-5.1); Sodium 141 mmol/L (136-145)
[2022-04-24] MEDS ORDERED: fentaNYL Citrate/PF 100 MCG/2 ML SYRINGE ONE (11:28)
[2022-04-24] MEDS ORDERED: Heparin 10,000 UNITS/1 ML VIAL 30,000 UNITS in Sodium Chloride 0.9% 1,000 ML FS SCH (12:00)
[2022-04-24] MEDS ORDERED: Protamine Sulfate 250 MG/25 ML VIAL ONE (12:02)
[2022-04-24] MEDS ORDERED: Lidocaine 2% PF 100 mg/5 ml Syringe ONE (12:02)
[2022-04-24] MEDS ORDERED: Sodium Bicarb 50 MEQ/50 ML Abboject 8.4% SYRINGE ONE (12:02)
[2022-04-24] MEDS ORDERED: Calcium Chloride 1 GM/10 ML Abboject SYRINGE ONE (12:02)
[2022-04-24] MEDS ORDERED: Magnesium Sulfate 1 GM/2 ML VIAL ONE (12:02)
[2022-04-24] MEDS ORDERED: PROPOFOL 200 MG/20 ML VIAL ONE (12:02)
[2022-04-24] MEDS ORDERED: Mannitol 12.5 GM/50 ML ONE (12:02)
[2022-04-24] MEDS ORDERED: Heparin 5,000 UNITS/ML VIAL ONE (12:02)
[2022-04-24] MEDS ORDERED: Heparin 30,000 units/30 ml VIAL ONE (12:02)
[2022-04-24] MEDS ORDERED: Nitroglycerin 50 MG/250 ML BOT ONE (12:02)
[2022-04-24] MEDS ORDERED: Lidocaine 1% MPF 2 ML VIAL ONE (12:02)
[2022-04-24] MEDS ORDERED: Thrombin 5000 UNITS/5 ML VIAL ONE (12:02)
[2022-04-24] MEDS ORDERED: Cardioplegic Soln 1,000 ML BAG ONE (12:02)
[2022-04-24] MEDS ORDERED: Norepinephrine 4 MG/4 ML VIAL ONE (12:02)
[2022-04-24] MEDS ORDERED: Rocuronium Bromide 10 MG/ML (10ML VIAL) ONE (12:02)
[2022-04-24] MEDS ORDERED: Phenylephrine 10 MG/ML VIAL ONE (12:02)
[2022-04-24] MEDS ORDERED: Aminocaproic Acid 5 GM/20 ML VIAL ONE (12:02)
[2022-04-24] MEDS ORDERED: Papaverine 60 MG/2 ML VIAL ONE (12:02)
[2022-04-24] MEDS ORDERED: DOPamine 400 MG/D5W 250 ML 250 ML IVPB PRN (15:08)
[2022-04-24] MEDS ORDERED: Lactated Ringer's 1,000 ML IV SCH (15:08)
[2022-04-24] MEDS ORDERED: Nitroglycerin 50 MG/250 ML BOT 250 ML IVPB PRN (15:08)
[2022-04-24] MEDS ORDERED: niCARdipine 25 MG in Sodium Chloride 0.9% 250 ML 250 ML IVPB PRN (15:08)
[2022-04-24] MEDS ORDERED: Hetastarch 6% 500 ML 500 ML IVPB PRN (15:08)
[2022-04-24] MEDS ORDERED: Fentanyl 100 MCG/2 ML VIAL SLOW IVP PRN (15:08)
[2022-04-24] MEDS ORDERED: NOREPINEPHRINE 8 MG/250 ML-D5W 250 ML IVPB PRN (15:08)
[2022-04-24] MEDS ORDERED: Acetaminophen 325 MG TAB PO PRN (15:08)
[2022-04-24] MEDS ORDERED: Post-Op Insulin Drip Protocol IVPB ONE (15:08)
[2022-04-24] MEDS ORDERED: Bisacodyl 10 MG SUPP PR PRN (15:08)
[2022-04-24] MEDS ORDERED: HUMULIN R 100 UNITS in Sodium Chloride 0.9% 100 ML IVPB SCH (15:45)
[2022-04-24] MEDS ORDERED: Dextrose 50% Abboject 50 ML SYRINGE SLOW IVP PRN (15:45)
[2022-04-24] MEDS ORDERED: Dextrose 5% in Water 1,000 ML IV PRN (15:45)
[2022-04-24 15:46] LABS: Actual Bicarbonate (HCO3a) 21.7 mEq/L (22-28); Base Excess (BEa) -1.9 mEq/L (-2.0 to +3.0); CO2 Tension 33.1 mmHg (35.0-45.0); Calcium, Ionized (arterial) 1.19 mmol/L (1.12-1.30); Carboxyhemoglobin (COHb) 0.3 gm% (0.0-3.0); Hemoglobin (Hb) 12.4 g/dL (12.0-16.0); O2 Tension (PaO2), arterial 93.8 mmHg (> 80.0); pH, Arterial 7.43 (7.35-7.45)
[2022-04-24 15:47] LABS: #Eosinphils 0.1 thou/uL (0.0-0.7); #Lymphocytes 1.9 thou/uL (1.20-3.40); #Monocytes 0.3 thou/uL (0.11-0.59); #Neutrophils 8.3 thou/uL (1.40-6.50); %Basophils 0.2 % (0.0-1.0); %Eosinophils 1.3 % (0.0-10.0); %Neutrophils 77.4 % (42.0-75.0); Hemoglobin 11.7 g/dL (12.0-16.0); Mean Corpuscular HGB CONC 33.5 g/dL (32.0-36.0); Mean Corpuscular Hemoglobin 32.6 pg (27.0-31.0); Mean Corpuscular Volume 97.1 fL (78.0-98.0); Mean Platelet Volume 8.5 fL (7.4-10.4); Platelet Count 136 thou/uL (130-400); RBC Distribution Width 12.1 % (11.5-14.5); Red Blood Cell (RBC) Count 3.58 mill/uL (4.20-5.40); White Blood Cell (WBC) Count 10.8 thou/uL (4.8-10.8)
[2022-04-24 15:50] LABS: ALV-art Gradient 292.625 mmHg (0-20); Puncture Site Arterial Line
[2022-04-24] MEDS: Insulin Regular 300 UNITS/3 ML VIAL SC PRN ×3 (15:55→23:39)
[2022-04-24] MEDS: Morphine 2 MG/ML VIAL SLOW IVP PRN ×2 (15:56→17:34)
[2022-04-24 15:58] LABS: INR-International Normal Ratio 1.3; PTT 27.9 sec (22.9-36.1); Prothrombin Time 16.5 sec (12.0-14.7)
[2022-04-24 16:06] LABS: Anion Gap 11 mmol/L (10-20); BUN (Urea Nitrogen) 14 mg/dL (9.8-20.1); Calc. Creatinine Clearance 132 mL/min (70-130); Calcium 8.3 mg/dL (7.8-10.44); Carbon Dioxide 21 mmol/L (23-31); Chloride 112 mmol/L (98-107); Estimated GFR 88; Glucose 134 mg/dL (80-115); Potassium 3.7 mmol/L (3.5-5.1); Sodium 140 mmol/L (136-145)
[2022-04-24] MEDS: Potassium Chloride 20 MEQ/100 ML PREMIX BAG IVPB PRN ×2 (16:48→21:41)
[2022-04-24] MEDS: Ketorolac Tromethamine 30 MG/ML VIAL IVP SCH ×2 (17:00→23:39)
[2022-04-24] MEDS: Ondansetron PF 4 MG/2 ML Vial IVP PRN (18:04)
[2022-04-24 18:31] LABS: Base Excess (BEa) -3.7 mEq/L (-2.0 to +3.0); CO2 Tension 42.3 mmHg (35.0-45.0); Calcium, Ionized (arterial) 1.17 mmol/L (1.12-1.30); Carboxyhemoglobin (COHb) 0.3 gm% (0.0-3.0); Hemoglobin (Hb) 12.2 g/dL (12.0-16.0); O2 Tension (PaO2), arterial 115.5 mmHg (> 80.0); Potassium - ABG Lab 3.87 mmol/L (3.70-5.30); pH, Arterial 7.33 (7.35-7.45)
[2022-04-24 18:33] LABS: ALV-art Gradient 116.825 mmHg (0-20); Puncture Site ALINE
[2022-04-24] MEDS: CEFAZOLIN 2 GM in Sodium Chloride 0.9% 100 ML IVPB SCH (20:01)
[2022-04-24] MEDS ORDERED: Promethazine HCl 6.25 MG in Sodium Chloride 0.9% 50 ML IVPB SCH (20:30)
[2022-04-24] MEDS: HYDROcodone/Acetaminophen 5/325 mg Tablet PO PRN (20:51)
[2022-04-24] MEDS: Atorvastatin Calcium 20 MG TAB PO SCH (20:54)
[2022-04-24] MEDS: Famotidine/PF 20 mg/2ml Vial SLOW IVP SCH (21:01)
[2022-04-24 21:06] LABS: Hemoglobin 11.1 g/dL (12.0-16.0)
[2022-04-24 21:20] LABS: Potassium 3.9 mmol/L (3.5-5.1)
[2022-04-25] MEDS: Mag-Al 1200 mg/1200 mg/30 ML UDCUP PO PRN (00:06)
[2022-04-25] MEDS: HYDROcodone/Acetaminophen 5/325 mg Tablet PO PRN ×6 (01:03→20:26)
[2022-04-25] MEDS: Ondansetron PF 4 MG/2 ML Vial IVP PRN ×4 (01:08→20:30)
[2022-04-25] MEDS: CEFAZOLIN 2 GM in Sodium Chloride 0.9% 100 ML IVPB SCH ×2 (04:04→12:35)
[2022-04-25 05:11] LABS: #Monocytes 0.5 thou/uL (0.11-0.59); #Neutrophils 6.2 thou/uL (1.40-6.50); %Basophils 0.2 % (0.0-1.0); %Eosinophils 0.4 % (0.0-10.0); %Lymphocytes 12.7 % (21.0-51.0); %Monocytes 5.9 % (0.0-10.0); %Neutrophils 80.9 % (42.0-75.0); Hemoglobin 10.7 g/dL (12.0-16.0); Mean Corpuscular HGB CONC 33.2 g/dL (32.0-36.0); Mean Corpuscular Hemoglobin 32.9 pg (27.0-31.0); Mean Corpuscular Volume 99.2 fL (78.0-98.0); Mean Platelet Volume 8.9 fL (7.4-10.4); Platelet Count 128 thou/uL (130-400); RBC Distribution Width 12.5 % (11.5-14.5); Red Blood Cell (RBC) Count 3.25 mill/uL (4.20-5.40); White Blood Cell (WBC) Count 7.7 thou/uL (4.8-10.8)
[2022-04-25 05:34] LABS: Anion Gap 9 mmol/L (10-20); BUN (Urea Nitrogen) 17 mg/dL (9.8-20.1); Calc. Creatinine Clearance 117 mL/min (70-130); Calcium 8.1 mg/dL (7.8-10.44); Carbon Dioxide 24 mmol/L (23-31); Chloride 111 mmol/L (98-107); Estimated GFR 76; Glucose 131 mg/dL (80-115); Potassium 4.3 mmol/L (3.5-5.1); Sodium 140 mmol/L (136-145)
[2022-04-25] MEDS: Ketorolac Tromethamine 30 MG/ML VIAL IVP SCH ×4 (05:36→23:06)
[2022-04-25] MEDS ORDERED: Aspirin 81 mg Enteric Coated Tablet PO SCH (09:00)
[2022-04-25] MEDS: Bisacodyl 5 MG TAB PO PRN (09:19)
[2022-04-25] MEDS: Famotidine/PF 20 mg/2ml Vial SLOW IVP SCH (09:19)
[2022-04-25] MEDS: Aspirin 325 MG TAB PO SCH (09:20)
[2022-04-25] MEDS ORDERED: HYDROcodone/Acetaminophen 5/325 mg Tablet PO PRN (14:07)
[2022-04-25] MEDS: Carvedilol 6.25 MG TAB PO SCH (17:09)
[2022-04-25] MEDS: Atorvastatin Calcium 20 MG TAB PO SCH (20:14)
[2022-04-25] MEDS: Fentanyl 100 MCG/2 ML VIAL SLOW IVP PRN (23:17)
[2022-04-25] MEDS ORDERED: Amiodarone 150 MG, Admixture Fee 1 EACH in Dextrose 5% in Water 100 ML IVPB SCH (23:59)
[2022-04-26] MEDS: HYDROcodone/Acetaminophen 5/325 mg Tablet PO PRN ×3 (03:35→20:04)
[2022-04-26 04:29] LABS: #Eosinphils 0.2 thou/uL (0.0-0.7); #Lymphocytes 1.6 thou/uL (1.20-3.40); #Monocytes 0.6 thou/uL (0.11-0.59); #Neutrophils 8.4 thou/uL (1.40-6.50); %Basophils 0.3 % (0.0-1.0); %Lymphocytes 14.6 % (21.0-51.0); %Monocytes 5.5 % (0.0-10.0); %Neutrophils 77.6 % (42.0-75.0); Hemoglobin 10.8 g/dL (12.0-16.0); Mean Corpuscular HGB CONC 35.2 g/dL (32.0-36.0); Mean Corpuscular Hemoglobin 35.2 pg (27.0-31.0); Mean Corpuscular Volume 99.9 fL (78.0-98.0); Platelet Count 124 thou/uL (130-400); RBC Distribution Width 12.5 % (11.5-14.5); Red Blood Cell (RBC) Count 3.07 mill/uL (4.20-5.40); White Blood Cell (WBC) Count 10.8 thou/uL (4.8-10.8)
[2022-04-26 04:50] LABS: Anion Gap 11 mmol/L (10-20); BUN (Urea Nitrogen) 20 mg/dL (9.8-20.1); Calc. Creatinine Clearance 114 mL/min (70-130); Calcium 8.4 mg/dL (7.8-10.44); Carbon Dioxide 22 mmol/L (23-31); Chloride 110 mmol/L (98-107); Estimated GFR 74; Glucose 122 mg/dL (80-115); Potassium 3.7 mmol/L (3.5-5.1); Sodium 139 mmol/L (136-145)
[2022-04-26] MEDS: Ketorolac Tromethamine 30 MG/ML VIAL IVP SCH ×3 (05:03→17:41)
[2022-04-26] MEDS: Amiodarone 450 MG, Admixture Fee 1 EACH in Dextrose 5% in Water 250 ML IVPB SCH ×2 (05:52→13:37)
[2022-04-26] MEDS: Aspirin 325 MG TAB PO SCH (08:02)
[2022-04-26] MEDS: Carvedilol 6.25 MG TAB PO SCH ×2 (08:03→17:41)
[2022-04-26] MEDS: Polyethylene Glycol 3350 17 GM Packet PO SCH (08:03)
[2022-04-26] MEDS: Fentanyl 100 MCG/2 ML VIAL SLOW IVP PRN (08:03)
[2022-04-26] MEDS: Ondansetron PF 4 MG/2 ML Vial IVP PRN (08:09)
[2022-04-26] MEDS ORDERED: Lisinopril 10 MG TAB PO SCH (09:00)
[2022-04-26] MEDS: Mag-Al 1200 mg/1200 mg/30 ML UDCUP PO PRN ×2 (10:14→17:40)
[2022-04-26] MEDS: Atorvastatin Calcium 20 MG TAB PO SCH (20:05)
[2022-04-27] MEDS: Ketorolac Tromethamine 30 MG/ML VIAL IVP SCH ×2 (00:08→05:51)
[2022-04-27] MEDS: Ondansetron PF 4 MG/2 ML Vial IVP PRN (05:57)
[2022-04-27] MEDS: Amiodarone 450 MG, Admixture Fee 1 EACH in Dextrose 5% in Water 250 ML IVPB SCH (06:02)
[2022-04-27] MEDS: HYDROcodone/Acetaminophen 5/325 mg Tablet PO PRN ×4 (06:30→20:56)
[2022-04-27] MEDS ORDERED: Nitroglycerin 0.4 MG TAB (25 Tab Bottle) SL PRN (06:30)
[2022-04-27] MEDS ORDERED: Potassium Chloride 10 MEQ TAB PO SCH (08:00)
[2022-04-27] MEDS ORDERED: Furosemide 40 MG TAB PO SCH (09:00)
[2022-04-27] MEDS ORDERED: Amiodarone 200 MG TAB PO SCH (09:15)
[2022-04-27] MEDS: Multivit, Therapeutic 1 TAB PO SCH (09:18)
[2022-04-27] MEDS: Aspirin 325 MG TAB PO SCH (09:18)
[2022-04-27] MEDS: Carvedilol 6.25 MG TAB PO SCH ×2 (09:19→16:02)
[2022-04-27] MEDS: Polyethylene Glycol 3350 17 GM Packet PO SCH (09:20)
[2022-04-27] MEDS: Amiodarone 200 MG TAB PO SCH ×2 (16:03→20:15)
[2022-04-27] MEDS: Mag-Al 1200 mg/1200 mg/30 ML UDCUP PO PRN (20:14)
[2022-04-27] MEDS: Enoxaparin Sodium 40 MG/0.4 ML SYRINGE SC SCH (20:14)
[2022-04-27] MEDS: Guaifenesin DM 100-10/5 ML UDCUP PO PRN (20:15)
[2022-04-27] MEDS: Atorvastatin Calcium 20 MG TAB PO SCH (20:15)
[2022-04-28] MEDS: HYDROcodone/Acetaminophen 5/325 mg Tablet PO PRN ×4 (03:10→23:41)
[2022-04-28] MEDS ORDERED: Furosemide 20 MG TAB PO SCH (09:00)
[2022-04-28] MEDS: Amiodarone 200 MG TAB PO SCH ×3 (09:53→20:48)
[2022-04-28] MEDS: Carvedilol 6.25 MG TAB PO SCH ×2 (09:53→16:09)
[2022-04-28] MEDS: Potassium Chloride 10 MEQ TAB PO SCH ×2 (09:53→16:09)
[2022-04-28] MEDS: Polyethylene Glycol 3350 17 GM Packet PO SCH (09:54)
[2022-04-28] MEDS: Multivit, Therapeutic 1 TAB PO SCH (09:54)
[2022-04-28] MEDS: Furosemide 40 MG TAB PO SCH ×2 (09:54→16:09)
[2022-04-28] MEDS: Aspirin 325 MG TAB PO SCH (09:54)
[2022-04-28] MEDS ORDERED: Lisinopril 10 MG TAB PO SCH (10:00)
[2022-04-28] MEDS: Ondansetron PF 4 MG/2 ML Vial IVP PRN ×2 (12:45→23:59)
[2022-04-28] MEDS: Lisinopril 10 MG TAB PO SCH (20:48)
[2022-04-28] MEDS: Atorvastatin Calcium 20 MG TAB PO SCH (20:48)
[2022-04-28] MEDS: Enoxaparin Sodium 40 MG/0.4 ML SYRINGE SC SCH (20:49)
[2022-04-29] MEDS: HYDROcodone/Acetaminophen 5/325 mg Tablet PO PRN ×4 (05:35→23:30)
[2022-04-29] MEDS: Carvedilol 6.25 MG TAB PO SCH (08:23)
[2022-04-29] MEDS: Furosemide 40 MG TAB PO SCH ×2 (08:24→16:00)
[2022-04-29] MEDS: Potassium Chloride 10 MEQ TAB PO SCH ×2 (08:24→16:00)
[2022-04-29] MEDS: Amiodarone 200 MG TAB PO SCH (08:24)
[2022-04-29] MEDS: Aspirin 325 MG TAB PO SCH (08:24)
[2022-04-29] MEDS: Polyethylene Glycol 3350 17 GM Packet PO SCH ×2 (08:25→08:31)
[2022-04-29] MEDS: Lisinopril 10 MG TAB PO SCH ×2 (08:25→20:52)
[2022-04-29] MEDS: Multivit, Therapeutic 1 TAB PO SCH (08:25)
[2022-04-29 15:59] LABS: Actual Bicarbonate (HCO3a) 24.5 mEq/L (22-28); Analyzer IN Cardio OR; CO2 Tension 39.3 mmHg (35.0-45.0); Calcium, Ionized (arterial) 1.15 mmol/L (1.12-1.30); Carboxyhemoglobin (COHb) 0.3 gm% (0.0-3.0); Hemoglobin (Hb) 12.7 g/dL (12.0-16.0); O2 Tension (PaO2), arterial 106.2 mmHg (> 80.0); Potassium - ABG Lab 3.65 mmol/L (3.70-5.30); pH, Arterial 7.41 (7.35-7.45)
[2022-04-29 15:59] LABS: Actual Bicarbonate (HCO3a) 23.7 mEq/L (22-28); Analyzer IN Cardio OR; Base Excess (BEa) 0.9 mEq/L (-2.0 to +3.0); CO2 Tension 32.2 mmHg (35.0-45.0); Calcium, Ionized (arterial) 1.18 mmol/L (1.12-1.30); Carboxyhemoglobin (COHb) 0.6 gm% (0.0-3.0); Potassium - ABG Lab 3.76 mmol/L (3.70-5.30); pH, Arterial 7.48 (7.35-7.45)
[2022-04-29 16:00] LABS: Actual Bicarbonate (HCO3v) 24 mEq/L (22-28); Analyzer IN Cardio OR; Base Excess -0.5 mEq/L (-2.0 to +3.0); Calcium, Ionized (venous) 1.07 mmol/L (1.16-1.32); Chloride (VBG) 108 mmol/L (98-106); Hemoglobin (Hb) 9.7 g/dL (11.7-16.1); Potassium (VBG) 3.96 mmol/L (3.70-5.30); Sodium 136.9 mmol/L (133-146); pH (venous) 7.41 (7.32-7.43)
[2022-04-29 16:00] LABS: Actual Bicarbonate (HCO3a) 23.7 mEq/L (22-28); Analyzer IN Cardio OR; Base Excess (BEa) -0.1 mEq/L (-2.0 to +3.0); Calcium, Ionized (arterial) 1.05 mmol/L (1.12-1.30); Carboxyhemoglobin (COHb) 0.2 gm% (0.0-3.0); Hemoglobin (Hb) 9.5 g/dL (12.0-16.0); Potassium - ABG Lab 4.03 mmol/L (3.70-5.30); pH, Arterial 7.45 (7.35-7.45)
[2022-04-29 16:01] LABS: Puncture Site Arterial Line
[2022-04-29 16:01] LABS: Actual Bicarbonate (HCO3a) 20.8 mEq/L (22-28); Analyzer IN Cardio OR; CO2 Tension 37.3 mmHg (35.0-45.0); Carboxyhemoglobin (COHb) 0.3 gm% (0.0-3.0); Hemoglobin (Hb) 11.2 g/dL (12.0-16.0); pH, Arterial 7.37 (7.35-7.45)
[2022-04-29 16:01] LABS: Actual Bicarbonate (HCO3a) 21.6 mEq/L (22-28); Analyzer IN Cardio OR; Base Excess (BEa) -2.9 mEq/L (-2.0 to +3.0); CO2 Tension 36.4 mmHg (35.0-45.0); Carboxyhemoglobin (COHb) 0.3 gm% (0.0-3.0); O2 Tension (PaO2), arterial 100.7 mmHg (> 80.0); Potassium - ABG Lab 3.76 mmol/L (3.70-5.30); pH, Arterial 7.39 (7.35-7.45)
[2022-04-29 16:02] LABS: Puncture Site Arterial Line
[2022-04-29 16:02] LABS: Puncture Site Arterial Line
[2022-04-29 16:03] LABS: Puncture Site Arterial Line
[2022-04-29 16:03] LABS: Puncture Site Arterial Line
[2022-04-29] MEDS: Enoxaparin Sodium 40 MG/0.4 ML SYRINGE SC SCH (20:52)
[2022-04-29] MEDS: Atorvastatin Calcium 20 MG TAB PO SCH (20:52)
[2022-04-29] MEDS: Guaifenesin DM 100-10/5 ML UDCUP PO PRN (21:21)
[2022-04-30] MEDS: HYDROcodone/Acetaminophen 5/325 mg Tablet PO PRN ×3 (05:18→18:10)
[2022-04-30] MEDS ORDERED: Furosemide 40 MG TAB PO SCH (07:30)
[2022-04-30] MEDS ORDERED: Amiodarone 200 MG TAB PO SCH (09:00)
[2022-04-30] MEDS: Aspirin 325 MG TAB PO SCH (10:04)
[2022-04-30] MEDS: Lisinopril 10 MG TAB PO SCH ×2 (10:04→20:49)
[2022-04-30] MEDS: Potassium Chloride 10 MEQ TAB PO SCH ×2 (10:07→18:12)
[2022-04-30] MEDS: Multivit, Therapeutic 1 TAB PO SCH (10:08)
[2022-04-30] MEDS: Polyethylene Glycol 3350 17 GM Packet PO SCH (10:09)
[2022-04-30] MEDS ORDERED: Metoprolol Tartrate 25 MG TAB PO SCH (10:30)
[2022-04-30] MEDS ORDERED: Potassium Chloride 20 MEQ TAB PO SCH (12:00)
[2022-04-30] MEDS: Amiodarone 200 MG TAB PO SCH ×2 (14:58→20:48)
[2022-04-30] MEDS: Bisacodyl 5 MG TAB PO PRN (15:10)
[2022-04-30] MEDS: Atorvastatin Calcium 20 MG TAB PO SCH (20:48)
[2022-04-30] MEDS: Enoxaparin Sodium 40 MG/0.4 ML SYRINGE SC SCH (20:48)
[2022-05-01] MEDS: HYDROcodone/Acetaminophen 5/325 mg Tablet PO PRN ×4 (00:01→18:28)
[2022-05-01] MEDS: Lisinopril 10 MG TAB PO SCH ×2 (09:06→21:49)
[2022-05-01] MEDS: Amiodarone 200 MG TAB PO SCH ×3 (09:07→21:49)
[2022-05-01] MEDS: Multivit, Therapeutic 1 TAB PO SCH (09:08)
[2022-05-01] MEDS: Aspirin 325 MG TAB PO SCH (09:08)
[2022-05-01] MEDS: Polyethylene Glycol 3350 17 GM Packet PO SCH (09:08)
[2022-05-01 10:36] LABS: Anion Gap 16 mmol/L (10-20); BUN (Urea Nitrogen) 22 mg/dL (9.8-20.1); Calc. Creatinine Clearance 99 mL/min (70-130); Calcium 9.6 mg/dL (7.8-10.44); Carbon Dioxide 25 mmol/L (23-31); Chloride 100 mmol/L (98-107); Estimated GFR 63; Glucose 117 mg/dL (80-115); Magnesium 1.8 mg/dL (1.6-2.6); Potassium 3.9 mmol/L (3.5-5.1); Sodium 137 mmol/L (136-145)
[2022-05-01] MEDS: Enoxaparin Sodium 40 MG/0.4 ML SYRINGE SC SCH (21:50)
[2022-05-01] MEDS: Atorvastatin Calcium 20 MG TAB PO SCH (21:50)
[2022-05-02] MEDS: HYDROcodone/Acetaminophen 5/325 mg Tablet PO PRN ×2 (00:55→08:00)
[2022-05-02] MEDS: Multivit, Therapeutic 1 TAB PO SCH (08:04)
[2022-05-02] MEDS: Polyethylene Glycol 3350 17 GM Packet PO SCH (08:04)
[2022-05-02] MEDS: Aspirin 325 MG TAB PO SCH (08:04)
[2022-05-02] MEDS: Lisinopril 10 MG TAB PO SCH (08:04)
[2022-05-02] MEDS: Amiodarone 200 MG TAB PO SCH (08:04)
[2022-05-02 12:52] VITALS: BP 129/82; TEMP 98.4
== END 2022-05-02 12:56 | disposition home or self-care (01) | DRG 236 ==
LOC: CCU 12:03 → 2NO 04-26 20:34
PROVIDERS: ADMIT Internal Medicine Cardiovascular Disease; ATTEND Internal Medicine Cardiovascular Disease
PROC: 02100Z9 Bypass Coronary Artery, One Artery from Left Internal Mammary, Open Approach (ICD-10-PCS; principal; 2022-04-24)
PROC: 021009W Bypass Coronary Artery, One Artery from Aorta with Autologous Venous Tissue, Open Approach (ICD-10-PCS; 2022-04-24)
PROC: 06BQ0ZZ Excision of Left Saphenous Vein, Open Approach (ICD-10-PCS; 2022-04-24)
PROC: 5A1221Z Performance of Cardiac Output, Continuous (ICD-10-PCS; 2022-04-24)
PROC: 02L70CK Occlusion of Left Atrial Appendage with Extraluminal Device, Open Approach (ICD-10-PCS; 2022-04-24)
DX: I25.10 Atherosclerotic heart disease of native coronary artery without angina pectoris (principal); Z68.41 Body mass index [BMI] 40.0-44.9, adult; R25.1 Tremor, unspecified; M25.512 Pain in left shoulder; I10 Essential (primary) hypertension; E78.00 Pure hypercholesterolemia, unspecified; R12 Heartburn; M54.9 Dorsalgia, unspecified; Z20.822 Contact with and (suspected) exposure to COVID-19; G89.29 Other chronic pain; E66.01 Morbid (severe) obesity due to excess calories; I48.0 Paroxysmal atrial fibrillation; Z98.890 Other specified postprocedural states; Z92.21 Personal history of antineoplastic chemotherapy; Z92.3 Personal history of irradiation; Z90.49 Acquired absence of other specified parts of digestive tract; Z90.710 Acquired absence of both cervix and uterus; Z79.899 Other long term (current) drug therapy; Z79.82 Long term (current) use of aspirin; Z98.84 Bariatric surgery status; Z85.3 Personal history of malignant neoplasm of breast
CPT/HCPCS: 36415; 36416; 36430; 71045; 80048; 82805; 83735; 85025; 85347; 85610; 85730; 86850; 86900; 86901; 87811; 93005; 93010; 93798; 94002; 94150; 97139; C1751; C1776; J0282; J0690; J1644; J1650; J1815; J1885; J2001; J2150; J2250; J2270; J2370; J2405; J2440; J2550; J2704; J2720; J3010; J3370; J3475; J3480; J3490; J7070; J7120; P9045; S0017; S0028; U0002

== ENCOUNTER 2023-10-09 10:30 | Emergency (ER) | payer MEDICARE ==
[2023-10-09] MEDS ORDERED: Dexamethasone 4 MG TAB ONE (11:27)
== END 2023-10-09 11:30 | disposition home or self-care (01) ==
LOC: ERS 10:30
DX: T78.40XA Allergy, unspecified, initial encounter (principal); I11.0 Hypertensive heart disease with heart failure; I50.9 Heart failure, unspecified; Z79.899 Other long term (current) drug therapy
CPT/HCPCS: 99283; J8540

== ENCOUNTER 2024-01-22 10:06 | Emergency (ER) | payer MEDICARE | END 2024-01-22 11:20 | disposition home or self-care (01) | LOC: ERS 10:06 | DX: M54.17 Radiculopathy, lumbosacral region (principal); I11.0 Hypertensive heart disease with heart failure; I50.9 Heart failure, unspecified | CPT/HCPCS: 99282 ==

== ENCOUNTER → 2024-03-02 | Day surgery (SDC) | payer MEDICARE ==
[2024-03-01 08:49] VITALS: BMI 40.2
[~2024-03-02] MED LIST changes: +Dexamethasone 20 MG/5 ML VIAL ONE; +EPINEPHrine 1 MG/10 ML Abboject SYRINGE ONE; +Glycopyrrolate 0.2 MG/ML 5 ML SYRINGE ONE; +Heparin 10,000 UNITS/ 10 ML VIAL ONE; -ISOVUE-370 76%-LOCM 1 ML ONE; +Lidocaine 1% PF 5 ML VIAL ONE; +Midazolam HCl 2 mg/2 ml Vial ONE; +Ondansetron PF 4 MG/2 ML Vial ONE; +PHENYLEPHRINE-NS 100 MCG/ML 10 ML SYRINGE ONE; +PROPOFOL 0 ML ONE; +Phenylephrine 10 MG/ML VIAL ONE; +fentaNYL 50 mcg/mL 1 mL Vial ONE
== END ==
LOC: SDC 05:59
PROVIDERS: ATTEND Internal Medicine Cardiovascular Disease
DX: I48.3 Typical atrial flutter (principal); I25.10 Atherosclerotic heart disease of native coronary artery without angina pectoris; Z53.09 Procedure and treatment not carried out because of other contraindication; I47.19 Other supraventricular tachycardia; I50.9 Heart failure, unspecified; Z79.899 Other long term (current) drug therapy; Z79.82 Long term (current) use of aspirin; Z88.5 Allergy status to narcotic agent; Z88.2 Allergy status to sulfonamides; Z91.010 Allergy to peanuts; Z90.49 Acquired absence of other specified parts of digestive tract; Z90.710 Acquired absence of both cervix and uterus; Z98.84 Bariatric surgery status; Z96.619 Presence of unspecified artificial shoulder joint; Z98.890 Other specified postprocedural states
CPT/HCPCS: 93005; J1644; J2250; J2405; 93010; J0171; J1100; J2371; J2704; J3010

== ENCOUNTER 2024-04-17 18:45 | Emergency (ER) | payer MEDICARE | END 2024-04-17 23:55 | disposition home or self-care (01) | LOC: ERS 18:45 | DX: M79.604 Pain in right leg (principal); M54.31 Sciatica, right side; I11.0 Hypertensive heart disease with heart failure; I50.9 Heart failure, unspecified ==

== ENCOUNTER 2025-04-12 14:14 | Outpatient (CLI) | payer MEDICARE | END 2025-04-12 14:15 | disposition home or self-care (01) | LOC: BICMAMMO 14:14 | PROVIDERS: ATTEND Orthopaedic Surgery | DX: N95.9 Unspecified menopausal and perimenopausal disorder (principal) | CPT/HCPCS: 77080 ==